=== PATIENT | female | born 1930 | race Caucasian/White ===

== ENCOUNTER 2017-08-28 10:33 | Inpatient (IN) | payer MEDICARE, OTHER ==
[~2017-08-28] VITALS: Ht 149.9 cm; Wt 54.4 kg
[~2017-08-28 10:33] MED LIST: AMLODIPINE BESYL5 MG PO; CALCIUM 600 +1 EAC3 PO; CENTRUM SILVER1 EAC5 PO; CEPHALEXIN250 MG PO; DOXYCYCLINE HYC50 MG PO; HYDROCHLOROTHIA50 MG PO; LEVOTHYROXINE100 MCG PO; OMEPRAZOLE40 MG PO; OXYBUTYNIN CHLO10 MG PO; PERCOCET 5-3251 EACH PO; PILOCARPINE HCL OU
[2017-08-28] MEDS ORDERED: ASPIRIN325 MG PO (15:13)
--- NOTE | 2017-08-28 16:30 | NUR ---
PATIENT AND CAREGIVER ALEJANDRA KWON HERE TODAY FOR PREADMISSION APPOINTMENT. PATIENT IS SCHEDULED FOR A LEFT TOTAL HIP ARTHROPLASTY ON 08/11/17. PATIENT IS HARD OF HEARING AND HAS COCHLEAR IMPLANT BEHIND THE LEFT EAR. CAREGIVER HELPED IN ANSWERING SOME OF THE QUESTIONS. PATIENT STATED SHE HAS A FRONT WHEELED WALKER AT HOME AND ALEJANDRA WILL BRING IT IN ON DAY OF SURGERY. SHE STATES SHE HAD HER RIGHT HIP REPLACED ABOUT THREE YEARS AGO. SHE LIVES IN A ONE STORY HOME WITH NO STEPS. SHE DOES HAVE A TUB\SHOWER COMBO AND A HANDHELD SHOWER HEAD. THEY ALSO DESCRIBED WHAT SOUNDS LIKE GRAB BARS TO HELP HER IN AND OUT OF THE TUB CURRENTLY. SHE HAS A SHOWER BENCH THAT SHE USES. SHE STATES SHE DID NOT USE A TOILET SEAT RISER AFTER HER LAST SURGERY. ALEJANDRA WILL BE TRANSPORTING HER HOME WHEN SHE IS DISCHARGED AND IS ABLE TO STAY WITH HER AT NIGHT FOR A FEW NIGHTS UNTIL SHE IS OKAY TO STAY ALONE AGAIN. ALEJANDRA COMES INTO THE HOME AND HELPS HER FOR APPROXIMATELY 20 HOURS EACH WEEK. IF PHYSICAL THERAPY IS NEEDED THEY WOULD LIKE TO HAVE IT SET UP WITH [facility] OUTPATIENT PH[facility]ICAL THERAPY. I ASKED IF THERE WAS FAMILY TO HELP IF IT WAS NEEDED AND THEY SAID NO. I WILL SEND THIS INFORMATION TO THE [facility] SO THEY CAN FOLLOW UP NEEDED.
[2017-09-10] MEDS ORDERED: MACRODANTIN100 MG PO (18:33)
--- NOTE | 2017-09-11 08:29 | NUR ---
PT'S SURGERY WAS CANCELLED, IN PAIN BUT WOULDN'T PUT A NUMBER ON LEVEL OF PAIN. DECLINED PRAYER, WILL FOLLOOW NEEDED
--- NOTE | 2017-09-11 10:22 | NUR ---
LE 0645: FRANCESCO LUJAN OUT TO SPEAK WITH RN. DISCUSSED PT WAS SEEN IN [facility] ER YESTERDAY. PER PT AND PT'S CAREGIVER PT WAS SEEN FOR UTI AND GIVEN ABX. WHEN ASKED IF ER CONTACTED DR. OLIVARES REGARDING SURGERY PT'S CAREGIVER STATES "THEY TOLD US IN THE ER SHE WAS OKAY TO HAVE SURGERY TOMORROW." PT AND CAREGIVER UNABLE TO SPECIFICALLY STATES THAT DR. OLIVARES WAS CALLED YESTERDAY IN ER,"ONLY IT WAS OKAY TO HAVE SURGERY TODAY." FRANCESCO LUJAN IN ROOM TO SEE PT, UA RESULTS PRINTED VIA [employer]. LE 0700: PER DR. OLIVARES SURGERY CANCELED DUE TO UTI. RN IN ROOM TO LET PT AND CAREGIVER KNOW THAT SINCE PRE-OP MEDICATIONS WERE GIVEN PT WOULD NEED TO STAY FOR MONITORING. PT AND CAREGIVER EXPRESS UNDERSTANDING.
--- NOTE | 2017-09-11 10:28 | NUR ---
LE 0830: PT RESTING IN BED BREAKFAST ORDER. PER RADHA RICHARDSON ATTEMPTED TO GET PT OOB AND DRESSED. PT BECAME DIZZY AT THAT TIME. PT ASSISTED BACK TO BED, IV DC'D. LE 0900: PT SLEEPING, CAREGIVER AT BEDSIDE. CAREGIVER DISCUSSED LEAVING, WILL RETURN AROUND 11 AM TO SEE IF THE PT IS ABLE TO DISCHARGE.
--- NOTE | 2017-09-11 10:30 | NUR ---
LE 1000: IN TO CHECK ON PT, PT AWAKE STATING "I FEELLIKE I NEED TO GET UP AND MOVE AROUND." ASSISTED TO SITTING AT THE BEDSIDE, PT STATING NEED FOR BATHROOM. PT ASSISTED BACK TO BED. BSC AND NEW ATTENDS BROUGHT TO BEDSIDE. PT ASSISTED TO SITTING POSITION. WHEN SITTING AT SIDE OF BED PT STATES "I FEEL DIZZY AND SICK AT MY STOMCAH." RN AT BEDSIDE, PT VOMITING. COLD CLOTH GIVEN. AFTER EMESIS PT ASSISTED BACK TO BED, DISCUSSED WAITING TO USE BSC UNTIL PT IS NO LONGER DIZZY. PT AGREES. NO FURTHER NEEDS AT THIS TIME, CALL LIGHT IN REACH.
--- NOTE | 2017-11-14 16:00 | NUR ---
PATIENT HERE TO PREADMIT FOR A LEFT TOTAL HIP REPLACEMENT ON 11/27/17. HER CAREGIVER ALEJANDRA STATES THEY STILL HAVE EVERYTHING FROM WHEN SHE WAS SUPPOSED TO HAVE SURGERY. ALEJANDRA WILL BE STAYING WITH HER WHEN SHE IS DISCHARGED AND SHE PLANS TO GO HOME. THIS INFORMATION WILL BE SENT TO DR OLIVARES OFFICE AND DC PLANNING FOR FURTHER FOLLOW UP.
--- NOTE | 2017-11-27 11:31 | NUR ---
11/27/17 1131 Macho Rucker [place] USED X3 TO MOISTEN MOUTH. ATTEMPTED TO WEAN O2 TO 2L VIA NC. PT DESATURATES ON THIS. SHE SLEEPS WITH HER MOUTH OPEN. SWITCHED BACK TO OXYMASK AT 3L AND SPO2 INCREASES TO 96%
--- NOTE | 2017-11-27 11:50 | NUR ---
PT ARRIVED TO FLOOR VIA BED. PT VERY DROWSY BUT AWAKES TO VERBAL STIMULI. PT SPEECH IS VERY GARBLED AND DIFFICULT TO UNDERSTAND, PACU AND PT CAREGIVER STATES THIS IS BASELINE FOR HER. PT ORIENTED TO ALL. DENIES PAIN OR NAUSEA. LEFT HIP DRESSED WITH MEPILEX AND OPSITE, CDI, CRYOCUFF IN PLACE. ABDUCTOR PILLOW, SCD'S, CLAUDE HOSE, AND HEEL PROTECTORS ALL IN PLACE. PT SATTING 90-96% ON 3L OXY MASK. PT BREATHES THROUGH MOUTH WHILE ASLEEP. IVF INFUSING PER ORDERS, IV SITE CDI, FLUSHING WELL. BED ALARM ON, CALL LIGHT WITHIN REACH.
--- NOTE | 2017-11-27 12:12 | NUR ---
VISITED PT IN BEFORE SURGERY, CG AT PT'S SIDE. I DIDN'T STAY LONG, MY PRESENCE SEEM TO CONFUSE PT SOME, HOWEVER SHE WAS PLEASANT. EXTENDED A BLESSING, WILL FOLLOW NEEDED
--- NOTE | 2017-11-27 12:48 | NUR ---
PT SLEEPING UPON ENTERING ROOM. AWOKE EASILY TO VOICE. PT DENIES PAIN OR OTHER CONCERNS AT THIS TIME. SATTING 93% ON 3L OXY MASK. LEFT DRESSING REMAINS CDI, NO BLEEDING OR SHADOWING NOTED. CAP REFIL OF FEET UP TO 4 SEC FROM 5, FEELING WARMER. CALL LIGHT WITHIN REACH.
--- NOTE | 2017-11-27 13:13 | OR ---
[facility] [address], [place] [address] Signed DATE OF OPERATION: 11/27/2017 SURGEON: Elvia Steward MD PREOPERATIVE DIAGNOSIS: Degenerative joint disease, left hip. POSTOPERATIVE DIAGNOSIS: Degenerative joint disease, left hip. PROCEDURE PERFORMED: Left total hip arthroplasty. CARGO BROKER: Laurie Flores MS4. ANESTHESIA: Spinal with sedation. BLOOD LOSS: 150 mL. IMPLANTS: [place] secure fit advanced, size 7 stem, 54 cup and a -2.5 ceramic head. BRIEF HISTORY: Kelli is an 87-year-old female with severe pain in her hip that was unremitting. Nonoperative treatment had failed, contained the pain. She wished to proceed. DESCRIPTION OF PROCEDURE: Once consent was obtained and medical clearance was obtained, she was taken to the operating room. After adequate anesthesia, she was placed in the right lateral decubitus position. All downside pressure points were well padded. The left hip was prepped and draped in a standard sterile fashion. The hip was approached through a 4.5 inch incision, carried through the skin and subcutaneous tissue. IT band was divided longitudinally. The vastus lateralis was split from the tip of the trochanter distally and elevated subperiosteally around to the level of the lesser trochanter. The gluteus medius was split bluntly. Gluteus minimus and capsule were split sharply from the trochanter to the acetabular rim and peeled off the anterior neck. The hip was dislocated. Femoral neck cut made 1 fingerbreadth above the lesser trochanter. The Electronically Signed By: ELVIA STEWARD MD 11/27/17 1313 PATIENT NAME: KELLI GALLAGHER OPERATIVE REPORT DATE OF : 34 REPORT #: [id number] PHYSICIAN: ELVIA STEWARD MD PCP: GISSEL WADDELL MD REPORT IS CONFIDENTIAL AND NOT TO BE RELEASED WITHOUT AUTHORIZATION [facility] [address], [place] [address] Signed head was removed. Periacetabular soft tissue was removed and the acetabulum was reamed starting with a 46 and going to a 54. A 54 cup was found to be stable and we impacted in position. A single 6.5 screw was placed posterosuperiorly and the liner was then impacted. Attention was turned to the proximal femur. This was opened with a maria elenaie cutter, followed by the Kali awjong. It was then reamed sequentially up to a 7 and broached to a 7. The 7 broach was left in position and the hip was trialed. The zero was a little bit too long and there was tightness in the quads. The head was switched to -2.5 and this was stable. Her leg lengths were good. The trials were removed. The proximal femur was then irrigated and the final stem was impacted until it was well seated. The -2.5 head was then impacted until it was well seated and the hip was reduced. It was taken through range of motion, 100 degrees of flexion with 20 of internal and external rotation. She was stable. The wound was copiously irrigated with antibiotic solution. A total of 3 L antibiotic irrigation was used. The capsule was closed with #1 Vicryl. The vastus and IT band layers were closed independently using #2 Stratafix subcutaneous tissue with 0 Stratafix and skin with adwoa. The wound was dressed with Mepilex Ag dressing and Opsite. She tolerated the procedure well. All sponge, needle, and instrument counts were correct. Elvia Steward MD BA/CORRINAL /[id number] Copies: ~ Electronically Signed By: ELVIA STEWARD MD 11/27/17 1313 PATIENT NAME: KELLI GALLAGHER OPERATIVE REPORT DATE OF : 34 REPORT #: [id number] PHYSICIAN: ELVIA STEWARD MD PCP: GISSEL WADDELL MD REPORT IS CONFIDENTIAL AND NOT TO BE RELEASED WITHOUT AUTHORIZATION
--- NOTE | 2017-11-27 13:51 | NUR ---
PT STILL VERY DROWSY. LEFT HIP DRESSING CDI. O2 90% ON 3L OXY MASK. IV INFUSING WNL. CALL LIGHT WITHIN REACH.
--- NOTE | 2017-11-27 13:52 | NUR ---
PATIENT RESTING IN BED WITH EYES CLOSED. RN IN ROOM. NO NEEDS AT THIS TIME.
[2017-11-27] MEDS ORDERED: ALENDRONATE SOD70 MG PO (15:26)
[2017-11-27] MEDS ORDERED: OXYBUTYNIN CHLO15 MG PO (15:29)
--- NOTE | 2017-11-27 16:00 | NUR ---
WENT TO CHECK ON PT AT 1445. NOTED THAT PT WAS UNRESPONSIVE TO VERBAL STIMULI. PT UNRESPONSIVE TO SHOUTING OR NOXIOUS STIMULI. PUPILS EQUAL AND UNREACTIVE TO LIGHT, LIMBSX4 FLACCID. PT MAINTINNG AIRWAY INDEPENDENTLY, SATTING 93% ON 3L OXYMASK, RESP 12-16. ALL VITAL SIGNS BASELINE FOR PT. CAP REFILL 4-5 SEC. MEDICATED PT WITH 0.4MG OF IV NARCAN. NOTIFIED JOSEF ALCARAZ AND DR. OLIVARES. RECIEVED ORDER FROM MARSHALL TO GIVE 2MG IV NARCAN AND CONTACT DR. LERMA. DR. LERMA NOTITFIED AND IN TO ASSESS PT. LABS DRAWN, ABG'S DRAWN. FLUMEZINAL GIVEN PER DR. LERMA. SMELLING SALTS ATTEMPED. FACIAL GRIMACE NOTED BUT NOT OTHER REACTION. PT PLACED ON BIPAP PER ABG RESULTS. PLACED ON TELE, SCOPE PATCH REMOVED. PT TRANSFERRED TO CCU. BEDSIDE REPORT GIVEN TO AUSTIN RICHARDSON.
--- NOTE | 2017-11-27 16:52 | NUR ---
PT ARRIVED TO ROOM 127 FROM MED/SURG AFTER RAPID RESPONSE. PT TRANSFERRED VIA BED. VITAL SIGNS TAKEN AND MONITOR ON, PT IS SINUS PREETI 2 58 BPM. PT NON-RESPONSIVE TO PAINFUL STIMULI. LEFT EYE WITH POSSIBLE CATARACT, RIGHT EYE DOES NOT REACT TO LIGHT. KEYS CATH PLACED AND EMPTIED OF 475 MLS ORANGE COLORED URINE. R.T. HERE TO DRAW ANOTHER SET OF ABG'S. DR. OLIVARES HERE TO ASSESS PT.
--- NOTE | 2017-11-27 17:46 | NUR ---
BLOOD GAS SENT TO LAB AND RESULTS REPORTED TO DR. OLIVARES & DR. LERMA. ABG SHOWS PH NOW 7.28, [phone]. HEAD CT ORDERED.
--- NOTE | 2017-11-27 18:05 | NUR ---
TO CT FOR HEAD CT PER DR. SEVILLA.
--- NOTE | 2017-11-27 18:35 | NUR ---
RETURNED TO ROOM [address] COMPLETED. PT REMAINS NON-RESONSIVE.
--- NOTE | 2017-11-27 21:33 | NUR ---
REPORT RECEIVED FROM PRITI. IN TO SEE PT AT 1944. PT OBTUNDED. NO RESPONSE TO STERNAL RUB, MOVING OF L LEG OR PRESSING NAILS SHARPLY. PT REMAINED UNRESPONSIVE UNTIL 2132. DR LERMA IN TO SEE PT AT 1999. ABG DRAWN AT 2029 WITHOUT RESPONSE FROM PT. ABG RESULTS UPDATED TO DR OLIVARES AT 2111 AND DECISION AGREED UPON BY STAFF, DR LERMA AND DR OLIVARES TO RE-INTUBATE PT SHE IS UNABLE TO MAINTAIN OWN AIRWAY. REMAINS ON BIPAP WITH RR 10-12. JARRETT MORRIS IN TO PROVIDE ANESTHESIA AND INTUBATE AT 2132. PT GRIMACING AND PULLING HEAD AWAY. DR LERMA IN TO SEE PT AND INTUBATION HELD AT THIS TIME. PT PLACED ON 3.5L NC. ENULOSE ENEMA GIVEN AT 2214. ATTENDS CHANGED AT 2299. PT GIVEN 250ML BOLUS PER VERBAL ORDER DR LERMA FOR LOW U/O. REPOSITIONED PT IN BED TO R SIDE. CRYOCUFF ON, SCD'S ON, HEEL PROTECTORS AND ABDUCTOR PILLOW IN PLACE. PT NOW TALKING OUTLOUD, SPEECH INCOHERENT. ORAL CARE PROVIDED. EYES CLOSED. TORADOL INITIALLY HELD DUE TO CONCERNS RE RENAL FUNCTION AND LOW U/O. GIVEN AT MIDNIGHT. NC ON WITH ETCO2 MONITOR SINCE 2229, PER RT.
--- NOTE | 2017-11-28 01:10 | NUR ---
PT SMILING. PLACED DENTURES IN PT MOUTH, UPPER ONES LOOSE. REMOVED UPPERS. ABLE TO UNDERSTAND PT STATING 'THANK YOU'. DRESSING TO LEFT HIP UNCHANGED. MEPELEX ON COVERED BY LARGE OPP SITE. ADJUSTED CRYOCUFF TO AVOID SKIN BEING EXPOSED. ATTEMPTED SEVERAL TIMES TO PLACE HEARING AIDS IN PT EARS, HOWEVER THEY WILL NOT STAY IN PLACE. MONITORING U/O QHR. REMAINS ORANGE IN COLOR. PT FIDGETING. TALKING INCOHERENTLY WITH EYES CLOSED.
--- NOTE | 2017-11-28 04:48 | NUR ---
PT BECAME NAUSEATED AT 0150. ABLE TO UNDERSTAND PT STATING 'I FEEL SICK'. SAT HOB UP. 4MG ZOFRAN GIVEN IV. PT CALMING AFTER 30MIN. ATTENDS CHANGED AT 0300 FOR SMALL YELLOW/BROWN MUCOUS BM. REPOSITIONED WITH PILLOW UNDER L HIP. TOLERATED FAIRLY WELL. GRIMACING WITH MOVEMENT, HOWEVER SETTLING TO SLEEP AFTER. CURRENTLY ASLEEP, WAKES TO TOUCH. REMAINS DIFFICULT TO UNDERSTAND SPEECH AND UNABLE TO DETERMINE IF PT ORIENTED. HAS OCCASIONAL LOOSE PRODUCTIVE COUGH. DRESSING ON L HIP INTACT WITH CRYOCUFF ON.
--- NOTE | 2017-11-28 04:52 | NUR ---
LATE NOTE: GINO HERNANDEZ WARMER PLACED ON PT 223O AND REMOVED 0200.
--- NOTE | 2017-11-28 05:11 | NUR ---
PT WITH LOOSE COUGH, UNABLE TO COUGH UP. USING YANKER TO SUCTION. HAS POOR GAG REFLEX AND REMAINS WITH EYES CLOSED.
--- NOTE | 2017-11-28 06:30 | NUR ---
UPDATED DR OLIVARES REGARDING INTUBATION HELD LAST NIGHT. PT REMAINS NPO DUE TO LACK OF GAG REFLEX. DIFFICULTY IN ASSESSING MENTATION. OPIODS HELD AT THIS TIME. PAIN CONTROL POTENTIAL ISSUE.
--- NOTE | 2017-11-28 07:14 | NUR ---
OT EVALUATION DONE YESTERDAY WAS NOT DONE ON THIS PT. IT WAS WRITTEN IN HER CHART ON ERROR. COULD NOT AROUSE PT YESTERDAY 11/27/17 TO DO THE EVALUATION. MARY OTR/L
--- NOTE | 2017-11-28 08:26 | NUR ---
ATTENDS CHANGED, PT INCONT OF SMALL AMT OF SOFT BROWN STOOL. PT AWAKE AND TRYING TO TALK. P.T. HERE TO WORK WITH PT.
--- NOTE | 2017-11-28 09:50 | NUR ---
RESPIRATORY THERAPIST ELIU AT PATIENT BEDSIDE, BI-PAP WILL STAY NEAR PATIENT BEDSIDE, PATIENT DOES NOT REQUIRE BI-PAP AT THIS TIME. PATIENT AWAKENS UPON RESPIRATORY THERAPY EXAM, PATIENT DENIES BREATHING DIFFICULTIES.
--- NOTE | 2017-11-28 10:58 | NUR ---
PT CHANGED D/T INCONT OF STOOL. ASSESSMENT COMPLETED, ABDUCTOR PILLOW & CRYOCUFF IN PLACE. CLAUDE HOSE AND SCD'S ON BILAT. PT ALERT AND TALKING WITH HEARING DEVICE IN PLACE. SPEECH THERAPY HERE AND PT IS ABLE TO SWALLOW APPLE SAUCE AND PT FOLLOWS DIRECTIONS WELL. PT NOW RESTING WITH HOB ELEVATED AND TOLERATING WELL. URINE OUTPUT HAS INCREASED SLIGHTLY.
--- NOTE | 2017-11-28 12:29 | NUR ---
ASSESSMENT COMPLETED. PT ON BED CHASE PER REQUEST, PASSING FLATUS ONLY. PT REPOSITONED IN BED RESTING WITH EYES CLOSED HOB ELEVATED 30%.
--- NOTE | 2017-11-28 14:03 | NUR ---
PATIENT WITH COMPLAINTS OF PAIN AND ASKED TO BE REPOSITIONED, PATIENT REPOSITIONED IN BED WITH REPORT OF COMFORT FROM PATIENT. PATIENT WITH NO FURTHER COMPLAINTS.
--- NOTE | 2017-11-28 14:58 | NUR ---
P.T. HERE TO WORK WITH PT. PT ASSISTED UP TO A STANDING POSITION WITH 2 PERSON ASSIST. PT ABLE TO STAND FOR A FEW MIN AND RETURNED TO BED, OANH GRANADOS.
--- NOTE | 2017-11-28 15:27 | NUR ---
PT RESTING WITH HOB ELEVATED. TORADOL 15 MG GIVEN IV PER DR. ORDER. HR 80, RESP 16, BP 148/39.
--- NOTE | 2017-11-28 16:29 | NUR ---
PATIENT UP TO BEDSIDE COMMODE WITH TWO PERSON ASSIST, PATIENT WITH BOWEL MOVEMENT DOCUMENTED IN I&O'S. LINENS CHANGED.
--- NOTE | 2017-11-28 17:58 | NUR ---
PT UP TO BSC PER REQUEST WITH 2 PERSON ASSIST, UNABLE TO HAVE BM BUT WAS ABLE TO PASS FLATUS. PT RETURNED TO BED WITH ASSIST, ABDUCTOR PILLOW & CRYO CUFF IN PLACE, SCD'S & CLAUDE HOSE ON BILAT. PT DRANK WATER WITHOUT PROBLEMS, OFFERED PT SOMETHING TO EAT BUT SHE REFUSED AT THIS TIME. RESTING WITH EYES CLOSED, HOB ELEVATED.
--- NOTE | 2017-11-28 18:32 | NUR ---
PATIENT GIVEN NEW WARM BLANKETS, REPOSITIONED, PATIENT REPORTS COMFORT, RESTING.
--- NOTE | 2017-11-28 19:20 | NUR ---
SHIFT REPORT RECEIVED FROM DYLAN AVILA. PT IS CURRENTLY RESTING IN BED. RA. KEYS PATENT, URINE APPEARS ORANGE. PT HAS CLAUDE'S, SCD'S, HEEL PROTECTORS, AND ABDUCTOR PILLOW IN PLACE. IVF INFUSING WNL. WILL CONTINUE TO MONITOR.
--- NOTE | 2017-11-28 20:15 | NUR ---
ASSESSMENT COMPLETED. PT IS ALERT, IQUGMIUT WITH COCHLEAR HEARING AID IN PLACE. ORIENTED TO ALL BUT DATE. DENIES PAIN, SCHEDULED TORADOL ADMINISTERED. LUNGS CLEAR, RA. HR REGULAR. BOWEL TONES ACTIVE, DENIES NAUSEA. LEFT HIP HAS SOME TRACE EDEMA, SURGICAL SITE COVERED WITH MEPILEX AND OPSITE, DRESSING C/D/I. CLAUDE'S, SCD'S, HEEL POTECTORS, AND ABDUCTOR PILLOW IN PLACE. NEW ICE IN CRYOCUFF. KEYS PATENT, DRAINING ORANGE URINE. NO REQUESTS AT THIS TIME, WILL CONTINUE TO MONITOR.
--- NOTE | 2017-11-28 22:00 | NUR ---
IN TO GIVE IV TYLENOL. PT DENIES PAIN AT THIS TIME. PT REMOVED HER HEARING AID AND HAD ME PLACE THE BATTERY ON THE KILN FIRER HELPER. DENIES FURTHER REQUESTS AT THIS TIME.
--- NOTE | 2017-11-29 00:23 | NUR ---
ASSESSMENT COMPLETED. PT RESTING COMFORTABLY, NO APPARENT DISTRESS. RESPIRATIONS EVEN AND UNLABORED, RR:19, SPO2: 100% ON RA. DRESSING TO LEFT HIP REMAINS C/D/I WITH CLAUDE'S/SCD'S/HEEL PROTECTORS/CRYOCUFF IN PLACE. IVF INFUSING WNL. MASSIMO PATENT. WILL CONTINUE TO MONITOR.
--- NOTE | 2017-11-29 01:49 | NUR ---
PT WOKE CONFUSED STATING "I'M NOT GOING TO PAY FOR ANOTHER SURGERY! I WANT TO TALK TO DR. OLIVARES!" RE-ASSURED PT THAT SHE HAD ALREADY HAD SURGERY AND THAT SHE WASN'T GOING TO HAVE ANYMORE, I ALSO LET HER KNOW THAT DR. OLIVARES WILL BE IN THIS MORNING AND SHE CAN TALK TO HIM. PT ASKS "IF I ALREADY HAD SURGERY, WHY DO I STILL HAVE TO BE HERE?" I EXPLAINED TO HER ABOUT PHYSICAL THERAPY AND MEDICATIONS AND SHE SEEMED HAPPY WITH THAT ANSWER. ASKED PT IF HER HIP HURTS AND SHE SAID "A LITTLE." IV TORADOL GIVEN AT THIS TIME. BED ALARM IS ON FOR SAFETY. WILL CONTINUE TO CLOSELY MONITOR.
--- NOTE | 2017-11-29 02:15 | NUR ---
PT DESATURATING TO 87%, PLACED ON 1L O2 VIA NC. SATS STILL ONLY 89%, TITRATED TO 2L O2 AND SATS NOW 93%. PT RESTING WITH EYES CLOSED. BED ALARM REMAINS ON FOR SAFETY. WILL CONTINUE TO MONITOR.
--- NOTE | 2017-11-29 04:30 | NUR ---
PT UP TO BSC WITH 2-PA AND FWW, MOVES WELL BUT IS VERY IMPULSIVE. PT ABLE TO PASS FLATUS BUT ONLY HAD A SMEAR OF BM. NEW ATTENDS AND EPI-CARE PROVIDED, RETURNED TO BED. ASSESSMENT COMPLETED. NO CHANGES FROM PREVIOUS ASSESSMENTS. REMAINS ON 2L O2, LUNGS CLEAR. DRESSING TO LEFT HIP C/D/I, CRYOCUFF HAS FRESH ICE. CLAUDE'S, SCD'S, ABDUCTOR PILLOW, AND HEEL PROTECTORS IN PLACE. IVF INFUSING WNL. KEYS PATENT, URINE REMAINS ORANGE. BED ALARM ON FOR SAFETY.
--- NOTE | 2017-11-29 06:48 | NUR ---
PT FORGETFUL, CONFUSED AT TIMES. PAIN WELL CONTROLLED WITH SCHEDULED TYLENOL AND TORADOL. LUNGS CLEAR, RA MOST OF NIGHT BUT NEEDED 2L WHILE SLEEPING. DRESSING TO LEFT HIP C/D/I, MINIMAL SWELLING TO LEFT HIP. CRYOCUFF, CLAUDE'S, SCD'S, HEEL PROTECTORS, AND ABDUCTOR PILLOW IN PLACE. 2-PA WITH FWW TO BSC, TOLERATED WELL, PASSED FLATUS BUT ONLY SMEAR OF BM. PEDAL PULSES PALPABLE, EXTREMITIES WARM AND PINK, CAP REFILL <3 SECONDS. IVF INFUSING WNL. KEYS PATENT, URINE ORANGE. TOLERATING CLEAR LIQUIDS WELL. BED ALARM ON FOR SAFETY.
--- NOTE | 2017-11-29 09:02 | NUR ---
OCCUPATIONAL THERAPY IN ROOM AT THIS TIME. PT STATES SHE IS 8/10 IN PAIN. IV TORADOL GIVEN AT THIS TIME. PT IS VERY HARD OF HEARING BUT DOES HAVE HER COCHLEAR IMPLANTS IN. KEYS DRAINING CLEAR YELLOW URINE AT THIS TIME. SCDs AND ABDUCTOR IN PLACE, WELL CLAUDE HOSE. PT REPOSITIONED IN BED TO HELP WITH PAIN AT THIS TIME.
--- NOTE | 2017-11-29 09:40 | NUR ---
PT'S OT EVALUATION WAS COMPLETED ON 11/29/17 NOT 11/27/17. THAT WAS AN ERROR. RHADDEN OTR/L
--- NOTE | 2017-11-29 09:40 | NUR ---
ASSISTED PT WITH ORAL HYGIENE AND KEYS CATHETER CARE. PT RESTING IN BED WATCHING TELEVISION. BED ALARM ON, CALL LIGHT WITHIN REACH, NO FURTHER REQUESTS AT THIS TIME.
--- NOTE | 2017-11-29 11:10 | NUR ---
P ASSISTED BACK TO BED, 2 PESON ASSIST WITH FWW, TOLERATED WELL. HIP ADDUCTOR PLACED, CRYO CUFF PLACED, SCD PLACED, AND HEEL PROTECTORS ON. CALL LIGHT WITHIN REACH.
--- NOTE | 2017-11-29 11:35 | NUR ---
JUVENTINOY THERAPY IN ROOM WITH PT AT THIS TIME.
--- OUTSIDE RECORDS SUMMARY | 2017-11-29 12:02 | XMS | Clinical Summary ---
Demographics + + + | Address | [address] | | | [place] [address] | + + + | Home Phone | | + + + | Preferred Language | Unknown | + + + | Marital Status | Single | + + + | Congregational Affiliation | Unknown | + + + | Race | Unknown | + + + | Ethnic Group | Unknown | + + + Author + + + | Author | [facility] | | | and [place] | + + + | Organization | [facility] | | | and [place] | + + + | Address | Unknown | + + + | Phone | Unavailable | + + + Support + + +---------+ + | Name | Relationship | Address | Phone | + + +---------+ + | Buddy Mondragon | ECON | Unknown | | + + +---------+ + Care Team Providers + +------+ + | Care Financial Institution Vice President Name | Role | Phone | + +------+ + | Erich Marcos MD | PP | | + +------+ + Allergies + + + + + + | Active Allergy | Reactions | Severity | Noted | Comments | | | | | Date | | + + + + + + | Ciprofloxacin | | High | 07/11/20 | Critical | | | | | 14 | | + + + + + + | Sulfa Antibiotics | | High | 07/11/20 | Critical | | | | | 14 | | + + + + + + Current Medications + + +-------+---------+------+------+-------+ | Prescription | Sig. | Disp. | Refills | Star | End | Statu | | | | | | t | Date | s | | | | | | Date | | | + + +-------+---------+------+------+-------+ | amLODIPine | Take 5 mg by mouth | | | | | Activ | | (NORVASC) 5 mg | Daily. | | | | | e | | tablet | | | | | | | + + +-------+---------+------+------+-------+ | | Take 50 mg by mouth | | | | | Activ | | hydrochlorothiazide | Daily. | | | | | e | | 50 mg tablet | | | | | | | + + +-------+---------+------+------+-------+ | oxybutynin | Take 10 mg by mouth | | | | | Activ | | (DITROPAN-XL) 10 MG | Daily. | | | | | e | | 24 hr tablet | | | | | | | + + +-------+---------+------+------+-------+ | levothyroxine | Take 100 mcg by | | | | | Activ | | (SYNTHROID, | mouth every morning | | | | | e | | LEVOTHROID) 100 mcg | (before breakfast). | | | | | | | tablet | | | | | | | + + +-------+---------+------+------+-------+ | cephalexin | Take 250 mg by mouth | | | | | Activ | | (KEFLEX) 250 mg | 4 times daily. | | | | | e | | capsule | | | | | | | + + +-------+---------+------+------+-------+ | Multiple | Take by mouth. | | | | | Activ | | Vitamins-Minerals | | | | | | e | | (CENTRUM SILVER PO) | | | | | | | + + +-------+---------+------+------+-------+ | potassium chloride | Take 10 mEq by mouth | | | | | Activ | | SA (DARBY JEAN) | 2 times daily. | | | | | e | | 10 MEQ tablet | | | | | | | + + +-------+---------+------+------+-------+ | Calcium-Vitamin D | Take by mouth. | | | | | Activ | | (CALTRATE 600 | | | | | | e | | PLUS-VIT D PO) | | | | | | | + + +-------+---------+------+------+-------+ | cholecalciferol | Take 1,000 Units by | | | | | Activ | | (VITAMIN D-3) 1,000 | mouth Daily. | | | | | e | | units tablet | | | | | | | + + +-------+---------+------+------+-------+ | pilocarpine | 1 drop 4 times | | | | | Activ | | (ISOPTO CARPINE) 2% | daily. | | | | | e | | ophthalmic solution | | | | | | | + + +-------+---------+------+------+-------+ | aspirin 325 mg | Take 325 mg by mouth | | | | | Activ | | tablet | Daily. | | | | | e | + + +-------+---------+------+------+-------+ | | Take 1 tablet by | | | | | Activ | | acetaminophen-codein | mouth every 4 hours | | | | | e | | e (TYLENOL #3) | as needed. | | | | | | | 300-30 mg per tablet | | | | | | | + + +-------+---------+------+------+-------+ Active Problems + + + | Problem | Noted Date | + + + | Esophageal reflux | 07/11/2014 | + + + | Gastroparesis | 07/11/2014 | + + + | Diaphragmatic hernia without mention of obstruction or gangrene | | + + + + + | Overview: ICD-10 Record update | + + + +---+ | Bariatric surgery status | | + +---+ | GERD (gastroesophageal reflux disease) | | + +---+ Family History + + +------+ + | Medical History | Relation | Name | Comments | + + +------+ + | Cancer | | | sibling-ovarian | + + +------+ + | Heart disease | | | parents | + + +------+ + | Stroke | | | parents | + + +------+ + | Cancer | | | sibling-colon | + + +------+ + + +------+--------+ + | Relation | Name | Status | Comments | + +------+--------+ + Social History + +-------+ +--------+------+ | Tobacco Use | Types | Packs/Day | Years | Date | | | | | Used | | + +-------+ +--------+------+ | Former Smoker | | | | | + +-------+ +--------+------+ + + | Comments: quit:1993 | + + + + +---------+ + | Alcohol Use | Drinks/We | oz/Week | Comments | | | ek | | | + + +---------+ + | No | | | | + + +---------+ + + + + | Sex Assigned at | Date Recorded | | | | + + + | Not on file | | + + + Last Filed Vital Signs + + + + | Vital Sign | Reading | Time Taken | + + + + | Blood Pressure | 126/69 | 07/22/2014 1205 PST | + + + + | Pulse | 73 | 07/22/2014 1205 PST | + + + + | Temperature | 36.6 C (97.9 F) | 07/22/2014 0955 PST | + + + + | Respiratory Rate | 16 | 07/22/2014 1205 PST | + + + + | Oxygen Saturation | 92% | 07/22/2014 1205 PST | + + + + | Inhaled Oxygen | - | - | | Concentration | | | + + + + | Weight | 64 kg (141 lb) | 07/22/2014954 PST | + + + + | Height | 147.3 cm (4' 10") | 07/22/2014954 PST | + + + + | Body Mass Index | 29.47 | 07/22/2014954 PST | + + + + Plan of Treatment + + + + + | Health Maintenance | Due Date | Last Done | Comments | + + + + + | Vaccine: | | | | | Dtap/Tdap/Td (1 - | 2 | | | | Tdap) | | | | + + + + + | Vaccine: | | | | | Pneumococcal 65+ | 8 | | | | Low/Medium Risk (1 | | | | | of 2 - PCV13) | | | | + + + + + | Vaccine: Influenza | | | | | (Season Ended) | 8 | | | + + + + + Results Not on filefrom Last 3 Months Insurance + +--------+ +--------+ +---------+ | Payer | Benefi | Subscriber | Type | Phone | Address | | | t Plan | ID | | | | | | / | | | | | | | Group | | | | | + +--------+ +--------+ +---------+ | [employer] | FAMILY | [phone] | Medica | [phone] | | MEDICARE | CARE | | re | [phone] | | | | PRMCR | | | | | | | MDCR | | | | | | | HMO | | | | | + +--------+ +--------+ +---------+ | [place] | MEDICA | xxxxxxxx | Medica | [phone] | | | [place] | | id | [phone] | | | | PLUS | | | | | + +--------+ +--------+ +---------+ + +--------+ +--------+ + + | Guarantor Name | Accoun | Relation to | Date | Phone | Billing Address | | | t Type | Patient | of | | | | | | | | | | + +--------+ +--------+ + + | KELLI GALLAGHER | Person | Self [birth year] Home: | [address] | | | al/Fam | | 1931 | [phone] | [address], | | | [place] | | | [phone] | [place] [phone] | + +--------+ +--------+ + +
--- OUTSIDE RECORDS SUMMARY | 2017-11-29 12:02 | XMS | Clinical Summary ---
Demographics + + + | Address | [address] | | | [place] [address] | + + + | Home Phone | | + + + | Preferred Language | Unknown | + + + | Marital Status | Single | + + + | Baptist Affiliation | CAT | + + + [...] [address] | | #[place] | [phone] | +------+ + + + +------- + ECON | Unknown | | +------+ + + + +------- + Care Team Providers + +------+ + | Care Center Specialists Name | Role | Phone | + +------+ + | Amilcar Jean MD | PP | | + +------+ + Source Comments TRIDA is fully live on both EpicCare Ambulatory and EpicCare InPatient.[facility] Allergies + + + + + [...] [address] | | | | | | [place], [place] | | | | | | [address] | | +--------+ + + + + [...] | | 04/11/ | [id number] | | [id number]: Qty: 1 on | | Ear | RONA | | 2016 | /[id number] | | 06/11/2015 by Sachin Ng | | | | | | 202019 | | MD Kim | | | | | | 6 / | + +------+--------+ +--------+--------+--------+ Procedures + +--------+ + + + | Procedure Name | Priori | Date/Time | Associated Diagnosis | Comments | | | ty | | | | + +--------+ + + + | UT EVL AUD RHB STTS | Routin | 06/14/2017 | 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
--- OUTSIDE RECORDS SUMMARY | 2017-11-29 12:02 | XMS | Clinical Summary ---
Demographics + + + | Address | [address] | | | [place] [address] | + + + | Home Phone | | + + + | Preferred Language | Unknown | + + + | Marital Status | Single | + + + | Synagogue Affiliation | CAT | + + + [...] | + + + Support + + + + + | Name | Relationship | Address | Phone | + + + + + | Lauri Gallagher | FR[place] | [address] | | | | | #[place] | | | | | [address] | | + + + + + | Buddy Wilson | ECON | Unknown | | + + + + + Care Team Providers + +------+ + | Care Editorial Specialist Name | Role | Phone | + +------+ + | Amilcar Jean MD | PP | | + +------+ + Source Comments JEREMY is fully live on both EpicCare Ambulatory and EpicCare InPatient.[facility] Allergies + + + + [...] place | 06/25/2015 | + + + Family History + +------+--------+ + | Relation [...] | | 2017 | Visit | | Latanya Miguel [address] | | | | | | [address] | | | | | | [place] | | | | | | [address] | | +--------+ + + + + + + + + + | Health Maintenance | Due Date | Last Done | Comments | + + + + + | INFLUENZA VACCINE | | | | | (FLU SHOT) | 8 | | | + + [...] | | 04/11/ | [id number] | | [id number]: Qty: 1 on | | Ear | RONA | | 2016 | /[id number] | | 06/11/2015 by Sachin Ng | | | | | | [id number] | | MD Kim | | | | | | 6 / | + +------+--------+ +--------+--------+--------+ Results Not on filefrom Last 3 Months
--- OUTSIDE RECORDS SUMMARY | 2017-11-29 12:02 | XMS | Encounter Summary ---
Demographics + + + | Address | [address] | | | [place] [address] | + + + | Home Phone | | + + + | Preferred Language | Unknown | + + + | Marital Status | Single | + + + | Hindu Affiliation | CAT | + + + | Race | White | + + + | Ethnic Group | Not or | + + + Author + + + | Author | [facility] | + + + | Organization | [facility] | + + + | Address | Unknown | + + + | Phone | Unavailable | + + + Support +------+ + + + +------- + | Name | Relationship | Address | Phone | +------+ + + + +------- + ECON | [address] | | #[place] | [address] | +------+ + + + +------- + ECON | Unknown | | +------+ + + + +------- + Care Team Providers + +------+ + | Care Metal Container Maker Name | Role | Phone | + [...] + + + | Closed | | Metal Burnisher | | Non-[facility] | Ent | | | | | | Epic Dept | Audiology [facility] | | | | | | | [address] | | | | | | | [address] | | | | | | | [facility] | | | | | | | Mailcode: | | | | | | | [address] | | | | | | | Physician's | | | | | | | Tee | | | | | | | [place], [place] | | | | | | | [address] | | | | | | | Phone: | | | | | | | [phone] | | | | | | | Fax: | | | | | | | [phone] | +--------+--------+ + + + + Encounter [...] at [facility] [address] | [facility] | | | | | [facility] | [place], [place] | | | | | Mailcode: [address] | [address] | | | | | Physician's Tee | | | | | | [place], [place] | | | | | | [address] | | | | | | [phone] | | | +--------+ + + + [...] may be different f rom the original. [facility] Cochlear Implant Program Name: Domenica Gallagher : 1930 Date of Visit: 06/14/2017 Interval: Routine 3 month Participants: Rambo (Caregiver) CI: Left PERALTA: None Geospatial Imagery Intelligence Analyst: Numerate Internal: CI522 Magnet Strength: 1X Adult Cochlear Implant Programming Summary Domenica Gallagher, 86 y.o., was seen by [facility] Audiology for follow up of her [...] christophe at 60 dB SPL in Program 1/[employer] 24 in the soundfield unless otherwise noted. The following responses were obtained: Aided Thresholds: [phone] 2000 3000 4000 6000 SRT CI - [...] me at . Roxanne Wynne, DANIEA Clinical Metal Burnisher Board Certified in Audiology [facility] Department of Otolaryngology Audiology Services [address], [address] [place] [address] in this encounter Plan of Treatment +--------+ + + + + | Date | Type | Specialty | Care Team | Description | +--------+ + + + + | 12/29/ | Diagnostic | Metal Burnisher | Nidia Lee | | | 2018 | Visit | | K, AuD [address] | | | | | | [address] | | | | | | [place], [place] | | | | | | [address] | | +--------+ + + + + [...]
--- NOTE | 2017-11-29 13:38 | NUR ---
PT EDUCATED ON IS USE. PT DEMONSTRATED USE AND WAS ADVISED TO CONTINUE USE THROUGHOUT THE DAY. PT VERBALIZED AN UNDERSTANDING.
--- NOTE | 2017-11-29 14:05 | NUR ---
PT C/O PAIN IN LLE. CLAUDE HOSE REMOVED. REDDENED AREA NOTED ON OSMAN AND POSTERIOR LLE. SMALL BLISTERS NOTED ON POSTERIOR LLE. REDDENED AREA NOTED ON OSMAN AND POSTERIOR RLE. DR. OLIVARES IN ROOM AT THIS TIME. CLAUDE HOSE TO BE OFF, PER DR. OLIVARES. SCDS PLACED AT THIS TIME.
--- NOTE | 2017-11-29 17:55 | NUR ---
PATIENT SITTING UP IN BED. CALL LIGHT WITHIN REACH. NO OTHER NEEDS AT THIS TIME.
--- NOTE | 2017-11-29 18:35 | NUR ---
PATIENT TRANSFERED TO MED-SURG FROM CCU @ 0980. PATIENT IS ALERT SOMEWHAT DISORIENTED. RESPONDED APPROPRIATELY. NO APPARENT DISTRESS. PATIENT IS ON 1L VIA NC. REDNESS AND BLISTER ON THE RIGHT KNEE AND LEFT OSMAN. NO CLAUDE HOSE, SCD ON. DRESSING ON LEFT HIP D/C/I. ABDUCTOR PILLOW IN PLACE. BED ALARM ON. LOW DOSE OF NORCOTIC IF NEED TO BE GIVEN. 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
--- NOTE | 2017-11-29 18:47 | NUR ---
PATIENT SITTING UP IN BED WITH EYES CLOSED. CALL LIGHT WITHIN REACH. NO OTHER NEEDS AT THIS TIME.
--- NOTE | 2017-11-29 19:20 | NUR ---
RECEIVED REPORT FROM RN. PATIENT IS RESTING IN BED, BREATHING IS EVEN AND UNLABORED. DENIES NEEDS AT THIS TIME. CALL LIGHT WITHIN REACH, BED ALARM ON.
--- NOTE | 2017-11-29 19:30 | NUR ---
PATIENT IS RESTLESS IN BED, FIDGITING WITH BLANKETS AND ATTEMPTING TO TAKE ABDUCTOR PILLOW OFF, REMOVED IV SITES AND APPEARED TEARFUL. PATIENT STATES "I JUST WANT TO GO HOME. I AM SICK AND TIRED OF BEING HERE." EDUCATED PATIENT ABOUT HER CONDITION AND THE REASON FOR HER EXTENDED HOSPITALIZATION. PATIENT CONTINUES TO BE RESTLESS AND ARGUMENTATIVE. REMOVED ABDUCTOR PILLOW AND PLACED REGULAR PILLOW BETWEEN LEGS, REPOSITIONED IN BED WITH HELP FROM DYLAN RIOS. PATIENT APPEARS TO BE MORE COMFORTABLE. PATIENT DENIES PAIN. WITH REASSURANCE AND THERAPEUTIC COMMUNICATION, PATIENT IS NOW RESTING MORE COMFORTABLY AND WITH LESS AGITATION. NEW IV STARTED, PATIENT TOLERATED WELL. PER PATIENT'S REQUEST, RN SPOKE WITH CAREGIVER AND PATIENT SPOKE WITH CAREGIVER ON PHONE TO HELP REASSURE PATIENT. PATIENT STATES "WELL, I GUESS THERE IS NOTHING I CAN DO ABOUT IT, IS THERE?" AGAIN, REASSURED PATIENT. NOW RESTING, READING A MAGAZINE. WILL MONITOR PATIENT CLOSELY, CALL LIGHT WITHIN REACH, BED ALARM ON.
--- NOTE | 2017-11-29 21:15 | NUR ---
PATIENT IS RESTING IN BED, BREATHING IS EVEN AND UNLABORED. CONTINUES TO REPORTS 0/10 PAIN. SCHEDULED MEDICATIONS GIVEN, ASSESSMENT DONE. PATIENT CONTINUES TO BE FRUSTRATED WITH HER HOSPITALIZATION AND VERBALIZES AGAIN "I JUST WANT TO GO HOME." PROVIDED THERAPEUTIC COMMUNICATION, HELD PATIENT'S HAND AND REASSURED HER THAT STAFF WOULD TAKE CARE OF HER AND THAT MEDICAL TEAM IS DOING EVERYTHING THEY CAN TO HELP IMPROVE HER MEDICATION CONDITION FOR EVENTUAL DISCHARGE. PATIENT STATES "OH ALRIGHT. THERE IS NOTHING I CAN DO ABOUT IT." GAVE FRESH ICE WATER, DENIES FURTHER NEEDS. CALL LIGHT WITHIN REACH, BED ALARM ON.
--- NOTE | 2017-11-29 22:39 | NUR ---
PATIENT IS RESTING IN BED, APPEARS TO BE MORE COMFORTABLE AND RELAXED. REPORTS 0/10 PAIN. DENIES NEEDS AT THIS TIME. CONTINUES TO READ MAGAZINE. CALL LIGHT WITHIN REACH, BED ALARM ON.
--- NOTE | 2017-11-30 00:19 | NUR ---
PATIENT REPOSITIONED FOR COMFORT, DENIES PAIN. UPON WAKING UP, PATIENT WAS DISORIENTED AND BECAME AGITATED WITH STAFF, THROWING PILLOWS ACROSS THE ROOM AND YELLING. WITH RE-ORIENTATION, PATIENT WAS EDUCATED ABOUT SLEEPING POSITIONS AFTER HIP SURGERY. PATIENT STATES THAT SHE UNDERSTANDS. WILL CONTINUE TO MONITOR PATIENT CLOSELY. CALL LIGHT WITHIN REACH, BED ALARM ON. REFUSING TO USE ABDUCTOR PILLOW AND CRYOCUFF. PLACED NORMAL PILLOW BETWEEN LEGS AND PILLOW ON SIDE TO PREVENT PATIENT FROM ROLLING ON SIDE.
--- NOTE | 2017-11-30 01:16 | NUR ---
PATIENT RESTING COMFORTABLY IN BED, BREATHING IS EVEN AND UNLABORED. FLACC SCORE OF 0, APPEARS TO BE ASLEEP. CALL LIGHT WITHIN REACH, BED ALARM ON.
--- NOTE | 2017-11-30 03:44 | NUR ---
PATIENT RESTING IN BED, BREATHING IS EVEN AND UNLABORED. FLACC SCORE OF 0. CALL LIGHT WITHIN REACH, BED ALARM ON.
--- NOTE | 2017-11-30 05:30 | NUR ---
PATIENT AWAKE AND FIDGITING WITH BLANKETS. ASSISTED PATIENT WITH BLANKETS, PATIENT STATES "I JUST WANT TO GO HOME." ASSISTED PATIENT WITH ADLs, BRUSHED TEETH AND HAIR, WASHED FACE. REPOSITIONED FOR COMFORT. PATIENT REPORTS 5/10 PAIN IN LEFT HIP, PAIN MEDICATION GIVEN PER EMAR. PATIENT IS NOW RESTING IN BED, BREATHING IS EVEN AND UNLABORED, APPEARS RELAXED. PATIENT IS AGREABLE TO WEAR CRYOCUFF, PUT IN PLACE ALONG WITH HEEL PROTECTORS. CONTINUES TO REFUSE ABDUCTOR PILLOW. PATIENT DENIES FURTHER NEEDS. CALL LIGHT WITHIN REACH, BED ALARM ON.
--- NOTE | 2017-11-30 06:10 | NUR ---
PATIENT HAS BEEN AWAKE OFF AND ON THROUGHOUT NIGHT. VSS, URINE OUTPUT QS, PAIN WELL CONTROLLED WITH SCHEDULED PAIN MEDICATION. CAN BECOME DISORIENTED WHEN WAKING UP AND CAN BECOME AGGRESSIVE TOWARDS STAFF, CAN BE RE-ORIENTED EASILY, RESPONDS WELL TO THERAPEUTIC COMMUNICATION. HAS NOT REQUIRED O2 THIS SHIFT, LUNGS HAVE BEEN CLEAR. DRESSING TO LEFT HIP IS CDI, CMS INTACT. HAD TO PLACE NEW IV DUE TO PATIENT PULLING OTHER IV SITES. 1PA/FWW.
--- NOTE | 2017-11-30 07:45 | NUR ---
SHIFT REPORT RECEIVED AT BEDSIDE FROM SHIRLEY. PATIENT AWAKE IN BED, ON ROOM AIR. PATIENT REPORT NO PAIN AT THIS TIME. SCD, CRYO CUFF AND HEEL PROTECTOR IN PLACE. NO DISTRESS NOTED AND PATIENT IS ALERT ORIENTED. WILL CONTINUE TO MONITOR.
--- NOTE | 2017-11-30 09:08 | NUR ---
DR LERMA IN ROOM TO SEE AND EVALUATE PATIENT AND DISCUSS PLAN OF CARE. PATIENT IS ALERT AND ORIENTED. RESPONDED TO ALL QUESTIONS. PATIENT STATED THAT THE BATTERY ON HER IMPLANT WAS THAT'S WHY SHE WAS CONFUSED AND NOT ABLE TO UNDERSTAND WHAT WAS GOING ON.
--- NOTE | 2017-11-30 09:10 | NUR ---
PHYSICAL THERAPIST SHANTA IN ROOM TO ASSIST PATIENT TO TRANSFER. PATIENT WAS ABLE TO WALK FOR ABOUT 50 FEET. PATIENT RESTING IN THE CHAIR AT THIS TIME REPORTED 9/10 PAIN ON THE LEFT HIP. PATIENT WAS MEDICATED. FAMILY IN ROOM.
--- NOTE | 2017-11-30 11:18 | NUR ---
Student Nurse entered room to complete set of vitals at 10 o clock. Patient began complaining of itching and burning sensation around IV site, where the antibiotic (Rifampin) was being infused - indicating infiltration. Student Nurse consulted with clinical instructor and the decision was made to discontinue the peripheral IV on the left forearm. The nurse then inserted a new Peripheral IV on the right forearm. Infusion was continued and newly inserted IV appeared to be successful.
--- NOTE | 2017-11-30 12:56 | NUR ---
PATIENT RESTING IN THE CHAIR DENIES PAIN AT THIS TIME. PATIENT REQUESTED ORANGE JUICE. JUICE GIVEN TO PATIENT. NO APPARENT DISTRESS. CALL LIGHT IN REACH.
--- NOTE | 2017-11-30 13:16 | NUR ---
Primary Nurse alerted the student nurse that the newly inserted IV on the right forearm had also infiltrated. The student nurse and clinical instructor proceeded to attempt starting another peripheral IV site. Three attempts were made to start the IV, and failed. The primary nurse was alerted to the situation.
--- NOTE | 2017-11-30 15:05 | NUR ---
PATIENT RESTING IN BED, JUST RECEIVED TORADOL FOR PAIN. NO OTHER COMPLAINTS CALL LIGHT IN REACH. NEW IV SITE ESTABLISHED IN THE LEFT HAND.
--- NOTE | 2017-11-30 17:02 | NUR ---
PATIENT RESTING IN BED VISITING WITH FRIEND. REPORT MINIMAL PAIN ON THE LEFT HIP. NO APPARENT DISTRESS NOTED. DRESSING IN PLACE D/C/I. WILL CONTINUE TO MONITOR.
--- NOTE | 2017-11-30 18:44 | NUR ---
PATIENT HAD DONE WELL TODAY. HAD PHYSICA THERAPY TWICE AND WAS ABLE TO A TOTAL OF 100FEET. KEYS D/C THIS PM. PATIENT IS MORE AND AWAKE FOR THIS SHIFT. CALL APPROPRIATELY. NEW IV SITE ESTABLISHED. PAIN CONTROLED WITH TORADOL IV. PATIENT IS S/L AT THIS TIME. PATIENT ATE MOST HER MEALS. DRESSING ON THE LEFT HIP D/C/I. CRYO CUFF ON. MAKE SURE BATTERY ON THE COCLEA IMPLANT IS CHANGED.
--- NOTE | 2017-11-30 20:11 | NUR ---
PT APPEARS TO BE SLEEPING AT THIS TIME. BEDSIDE REPORT FROM DAY SHIFT RN. PT IS SL IN LEFT HAND. LEFT HIP DRESSING IS C/D/I. PT VISIBLE FROM NURSING STATION. RESPIRATION EQUAL AND UNLABORED. CALL LIGHT WITHIN REACH.
--- NOTE | 2017-11-30 20:30 | NUR ---
Charge Nurse Rounding Note: F/c dc'd earlier in am shift, no void yet. Lhip dressing in place, cryocuff, scds, heel protectors in place. Resting, eyes closed, no s/s distress
--- NOTE | 2017-11-30 22:15 | NUR ---
PT OOB TO BATHROOM WITH SBA AND FWW. PT REPORTED PAIN OF 5/10 WHILE AMBULATING. VOIDED 200ML. BACK TO BED. 0.5 TAB NORCO GIVEN FOR PAIN. CRYOCUFF IN PLACE ON LEFT HIP. PT IS SL IN LEFT HAND. LUNGS ARE DIM IN THE BASES. HEART SOUNDS IRREGULAR. SCD'S IN PLACE. DRESSING IS OPSITE AND MEPLEX, C/D/I. SMALL AMOUNT OF SWELLING. CALL LIGHT WITHIN REACH. PT VISIBLE FROM NURSING STATION. HEEL PROTECTORS IN PLACE. PERSONAL ITEMS AT BEDSIDE. WATER REFRESHED.
--- NOTE | 2017-11-30 22:24 | NUR ---
HELPED PT GET BACK TO BED FROM THE BATHROOM WITH HER FWW. HOOKED UP HER SCD AND PUT CRYO BACK ON LEFT HIP. ALSO PUT ON HER HEEL PROTECTORS. BEDSIDE TABLE AND CALL LIGHT WITHIN REACH.
--- NOTE | 2017-12-01 00:15 | NUR ---
PT APPEARS TO BE SLEEPING. CRYOCUFF IN PLACE, SCD'S ON, HEEL PROTECTORS ON. CALL LGITH WITHIN REACH.
--- NOTE | 2017-12-01 01:44 | NUR ---
HELPED PT TO THE BATHROOM AND BACK TO BED WITH HER FWW. FILLED CRYO WITH FRESH ICE. PUT SCD'S AND HEEL PROTECTORS ON. BEDSIDE TABLE AND CALL LIGHT WITHIN REACH. PER PT REQUEST I INFORMED RN RAMSEY SHE WOULD LIKE A PAIN PILL. PT NEEDS NOTHING ELSE AT THIS TIME.
--- NOTE | 2017-12-01 01:45 | NUR ---
PT REPORTED PAIN OF 8/10 SCHEDULED TORIDOL GIVEN. CRYO CUFF IN PLACE. SCD'S ON. HEEL PROTECTORS IN PLACE. CALL LIGHT WITHIN REACH.
--- NOTE | 2017-12-01 03:35 | NUR ---
PT IN BED WITH HOB ELEVATED. CRYCUFF ON LEFT HIP. HEEL PROTECTORS IN PLACE. RESPIRATIONS ARE EQUAL AND NONLABORED. ASSESSMENT COMPLETED. NO CHANGES FROM BEGINING OF SHIFT. CALL LIGHT WITHIN REACH.
--- NOTE | 2017-12-01 06:09 | NUR ---
pt slept throughout the night. norco given @ 0620 for pain when ambulating. output qs. sba with fww. sl in left hand. scheduled toridol. pt is a/o. dressing on left hip is c/d/i. cryocuff refreshed this am. heel protectors. plan to change to swing bed. hearing aid in left ear. to work with pt. up to chair.
--- NOTE | 2017-12-01 07:35 | NUR ---
SHIFT REPORT RECEIVED FROM RAMSEY. PATIENT AWAKE IN BED . REPORTED NO PAIN AT THIS TIME. CRYO CUFF, SCD AND HELL PROTECTOR ON. CALL LIGHT IN REACH.
--- NOTE | 2017-12-01 08:44 | NUR ---
IN ROOM WITH STUDENT NURSE TO ADMINISTER MORNING MEDS. PATIENT UP TO CHAIR. REPORTED LEFT HIP PAIN. SHE WAS MEDICATED WITH TORADOL. NO APPARENT DISTRESS NOTED. WILL CONTINUE TO MONITOR
--- NOTE | 2017-12-01 09:07 | NUR ---
Patient ambulated to the restroom twice this morning, with assisstance from one nurse and a walker. Bed was made, room was organized by student nurse and primary nurse. Breakfast was set up for the patient, patient was independent when eating the meal.
--- NOTE | 2017-12-01 09:07 | NUR ---
IN ROOM WITH STUDENT NURSE TO ADMINISTER MORNING MEDS. PATIENT UP TO CHAIR. REPORTED LEFT HIP PAIN. SHE WAS MEDICATED WITH TORADOL. NO APPARENT DISTRESS NOTED. WILL CONTINUE TO MONITOR.
--- NOTE | 2017-12-02 22:15 | DS ---
[facility] [address], [place] [address] Signed ADMISSION DATE: 11/27/2017 DISCHARGE DATE: 12/01/2017 ADMISSION DIAGNOSIS: Degenerative joint disease, left hip. DISCHARGE DIAGNOSES: 1. Degenerative joint disease, left hip. 2. Postoperative respiratory failure. PROCEDURE PERFORMED DURING THIS HOSPITALIZATION: Left total hip arthroplasty. BRIEF HISTORY: Kelli is an 87-year-old female with severe arthritis in her hip. Nonoperative treatment had failed and she wished to proceed with operative intervention. DESCRIPTION OF PROCEDURE: Once consent was obtained, she was taken to the operating room, underwent uneventful surgery. She was taken to the recovery room and subsequently to the orthopedic floor. She was initially placed on oxycodone, however, she got none prior to being found unresponsive in her room. She was resuscitated and taken to the ICU. She was placed on a BiPAP and was able to maintain, however, her blood gases did show elevated CO2. Her laboratory work initially was relatively normal. Reversal agents of Narcan and Romazicon were ineffective in changing her mental status. That night her respiratory status had deteriorated some or at least had shown no improvement. We elected to try intubation, however, she woke up at that point and her respiratory status improved as well as her mental status. By the next day, she was back to normal mental state for the most part. Her laboratory work did reveal markedly elevated liver enzymes and ammonia level. These were reversed and normalized by the time of discharge. She was seen by Physical Therapy. She was able to get out of bed. However, she requires significant assistance. Did not have good safety. Therefore, she will need to be continued on inpatient rehab in swing bed status. She will continue on her current medications including the Toradol and [place] for pain as well as gabapentin. She will continue with inpatient rehab for range of motion, strength, and balance. She does need that due to poor balance, poor strength, and inability to get herself in and out of bed safely. She does live at home alone. Has no family to help her and we will need to be back to pretty close to baseline before going home. Electronically Signed By: ELVIA STEWARD MD 12/02/17 2215 PATIENT NAME: KELLI GALLAGHER DISCHARGE SUMMARY DATE OF : 34 REPORT #: [id number] PHYSICIAN: ELVIA STEWARD MD PCP: GISSEL WADDELL MD REPORT IS CONFIDENTIAL AND NOT TO BE RELEASED WITHOUT AUTHORIZATION [address] [address] Signed Elvia Steward MD BA/CORRINAL /[id number] Copies: ~ Electronically Signed By: ELVIA STEWARD MD 12/02/17 2215 PATIENT NAME: KELLI GALLAGHER DISCHARGE SUMMARY DATE OF : 34 REPORT #: [id number] PHYSICIAN: ELVIA STEWARD MD PCP: GISSEL WADDELL MD REPORT IS CONFIDENTIAL AND NOT TO BE RELEASED WITHOUT AUTHORIZATION
== END 2017-12-01 08:50 | disposition swing bed (61) | DRG 469 ==
LOC: DSVR 09-11 05:30 → MS 09-11 05:30 → CCU 11-27 06:45 → MS 11-27 06:45 → DSVR 11-27 06:45 → MS 11-27 06:46 → CCU 11-27 16:27 → MS 11-28 14:12 → CCU 11-28 14:13 → MS 11-29 17:40
PROVIDERS: ADMIT Specialist
PROC: 5A09357 Assistance with Respiratory Ventilation, Less than 24 Consecutive Hours, Continuous Positive Airway Pressure (ICD-10-PCS; 2017-11-27)
PROC: 0SRB03Z Replacement of Left Hip Joint with Ceramic Synthetic Substitute, Open Approach (ICD-10-PCS; principal; 2017-11-27 09:00)
DX: M16.12 Unilateral primary osteoarthritis, left hip (principal); J95.821 Acute postprocedural respiratory failure; I10 Essential (primary) hypertension; E03.9 Hypothyroidism, unspecified; Z87.440 Personal history of urinary (tract) infections
CPT/HCPCS: 01214; 36415; 36600; 70450; 72170; 80048; 80053; 80076; 81001; 82140; 82803; 84484; 85025; 92526; 92610; 94660; 97110; 97116; 97162; 97163; 97165; 97530; C1776; G8978; G8979; J0131; J0690; J1100; J1885; J2250; J2274; J2310; J2370; J2405; J2543; J2704; J7030; J7040; J7120

== ENCOUNTER 2017-09-07 18:54 | Emergency (ER) | payer MEDICARE, OTHER ==
[~2017-09-07] VITALS: Ht 149.9 cm; Wt 55.7 kg
--- OUTSIDE RECORDS SUMMARY | ~2017-09-07 | XMS ---
Demographics + + + | Address | [address] | | | [address] | | | [place] [address] | + + + | Preferred Language | Unknown | + + + | Marital Status | Unknown | + + + | Holiness Affiliation | Unknown | + + + | Race | Unknown | + + + | Ethnic Group | Unknown | + + + Author + + + | Author | [facility] | + + + | Organization | [facility] | + + + | Address | [address] | | | [place] [address] | + + + | Phone | | + + + Care Team Providers + + + + | Care Thermite Welder Name | Role | Phone | + + + + Unavailable | Unavailable | + + + + PROBLEMS +---------+ + + +--------+ + + | Type | Condition | ICD9-CM | [id number] | Onset | Condition | SNOMED | | | | Code | Code | Dates | Status | Code | +---------+ + + +--------+ + + | Problem | HTN | | I10 | | Active | 89157309 | | | (hypertens | | | | | | | | ion) | | | | | | +---------+ + + +--------+ + + | Problem | Headache | | R51 | | Active | 35186813 | +---------+ + + +--------+ + + | Problem | Anxiety | | F41.9 | | Active | 06001258 | +---------+ + + +--------+ + + | Problem | Left rib | S22.32XA | | | Active | 24166442 | | | fracture | | | | | | +---------+ + + +--------+ + + | Problem | Rib | S22.39XA | | | Active | 62035438 | | | fractures | | | | | | +---------+ + + +--------+ + + | Problem | Recurrent | R29.6 | | | Active | 398837932 | | | falls | | | | | | +---------+ + + +--------+ + + | 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 | 651788559 | | | us | | | | | | | | faecalis | | | | | | | | infection | | | | | | +---------+ + + +--------+ + + | Problem | Diabetes | | E11.9 | | Active | 67070587 | | | mellitus | | | | | | +---------+ + + +--------+ + + | Problem | Heart | | R01.1 | | Active | 81774814 | | | murmur | | | | | | +---------+ + + +--------+ + + | Problem | Unsteady | R26.81 | | | Active | 331009658 | | | gait | | | | | | +---------+ + + +--------+ + + | Problem | Osteoporos | | M81.0 | | Active | 48056623 | | | is | | | | | | +---------+ + + +--------+ + + | 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 | 20437114 | | | tic hernia | | | | | | | | without | | | | | | | | obstructio | | | | | | | | n or | | | | | | | | gangrene | | | | | | +---------+ + + +--------+ + + | Problem | Urinary | | R32 | | Active | 504011504 | | | incontinen | | | | | | | | ce | | | | | | +---------+ + + +--------+ + + | Problem | Collapsed | | M48.56XA | | Active | 254400320 | | | vertebra, | | | | | | | | not | | | | | | | | elsewhere | | | | | | | | classified | | | | | | | | , lumbar | | | | | | | | region, | | | | | | | | initial | | | | | | | | encounter | | | | | | | | for | | | | | | | | fracture | | | | | | +---------+ + + +--------+ + + | Problem | Cochlear | Z96.21 | | | Active | | | | implant in | | | | | | | | place | | | | | | +---------+ + + +--------+ + + | Problem | 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 | | | Active | 201322445 | | | osis, | | | | | | | | generalize | | | | | | | | d, | | | | | | | | multiple | | | | | | | | joints | | | | | | +---------+ + + +--------+ + + | Problem | Hyperchole | | E78.0 | | Active | 02626067 | | | sterolemia | | | | | | +---------+ + + +--------+ + + | Problem | Gastropare | | K31.84 | | Active | 930537380 | | | sis | | | | | | +---------+ + + +--------+ + + | Problem | Hypothyroi | | E03.9 | | Active | 45906454 | | | dism | | | | | | +---------+ + + +--------+ + + | Problem | Restless | | G25.81 | | Active | 39589464 | | | leg | | | | | | | | syndrome | | | | | | +---------+ + + +--------+ + + | Problem | GERD | | K21.9 | | Active | 457212771 | | | (gastroeso | | | | | | | | phageal | | | | | | | | reflux | | | | | | | | disease) | | | | | | +---------+ + + +--------+ + + ALLERGIES Unknown Allergies SOCIAL HISTORY No smoking Hx information available PLAN OF CARE VITAL SIGNS MEDICATIONS Unknown Medications RESULTS No Results PROCEDURES No Known procedures IMMUNIZATIONS No Known Immunizations"
--- OUTSIDE RECORDS SUMMARY | ~2017-09-07 | XMS | Clinical Summary ---
Demographics + + + | Address | [address] | | | [place] [address] | + + + | Home Phone | | + + + | Preferred Language | Unknown | + + + | Marital Status | Single | + + + | Latter-Day Affiliation | CAT | + + + [...] [address] | | #[place] | [address] | +------+ + + + +------- + ECON | Unknown | | +------+ + + + +------- + Care Team Providers + +------+ + | Care Service Correspondent Name | Role | Phone | + +------+ + | Amilcar Jean MD | PP | | + +------+ + Source Comments TRIDA is fully live on both EpicCare Ambulatory and EpicCare InPatient.[facility] Allergies + + + + + + [...] Rd | | | | | | [place], [place] | | | | | | [address] | | +--------+ + + + + [...] | | 04/11/ | CI522 | | [id number]: Qty: 1 on | | Ear | RONA | | 2016 | /[id number] | | 06/11/2015 by Sachin Ng | | | | | | [phone] | | MD Kim | | | | | | 6 / | + +------+--------+ +--------+--------+--------+ Procedures + +--------+ + + + | Procedure Name | Priori | Date/Time | Associated Diagnosis | Comments | | | ty | | | | + +--------+ + + + | [place] EVL AUD RHB STTS | Routin | 06/14/2017 | 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
--- OUTSIDE RECORDS SUMMARY | ~2017-09-07 | XMS ---
Demographics + + + | Address | [address] | | | [address] | | | [place] [address] | + + + | Preferred Language | Unknown | + + + | Marital Status | Unknown | + + + | Spiritism Affiliation | Unknown | + + + | Race | Unknown | + + + | Ethnic Group | Unknown | + + + Author + + + | Author | [facility] | + + + | Organization | [facility] | + + + | Address | [address] | | | [place] [address] | + + + | Phone | | + + + Care Team Providers + + + + | Care Development Manager Name | Role | Phone | + + + + Unavailable | Unavailable | + + + + PROBLEMS +---------+ + + +--------+ + + | Type | Condition | ICD9-CM | [id number] | Onset | Condition | SNOMED | | | | Code | Code | Dates | Status | Code | +---------+ + + +--------+ + + | Problem | HTN | | I10 | | Active | 76714677 | | | (hypertens | | | | | | | | ion) | | | | | | +---------+ + + +--------+ + + | Problem | Headache | | R51 | | Active | 42607492 | +---------+ + + +--------+ + + | Problem | Anxiety | | F41.9 | | Active | 81931261 | +---------+ + + +--------+ + + | Problem | Left rib | S22.32XA | | | Active | 76648650 | | | fracture | | | | | | +---------+ + + +--------+ + + | Problem | Rib | S22.39XA | | | Active | 10512511 | | | fractures | | | | | | +---------+ + + +--------+ + + | Problem | Recurrent | R29.6 | | | Active | 897865334 | | | falls | | | | | | +---------+ + + +--------+ + + | 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 | 434215610 | | | us | | | | | | | | faecalis | | | | | | | | infection | | | | | | +---------+ + + +--------+ + + | Problem | Diabetes | | E11.9 | | Active | 98909654 | | | mellitus | | | | | | +---------+ + + +--------+ + + | Problem | Heart | | R01.1 | | Active | 83678054 | | | murmur | | | | | | +---------+ + + +--------+ + + | Problem | Unsteady | R26.81 | | | Active | 205209510 | | | gait | | | | | | +---------+ + + +--------+ + + | Problem | Osteoporos | | M81.0 | | Active | 89521346 | | | is | | | | | | +---------+ + + +--------+ + + | 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 | 98727657 | | | tic hernia | | [...] | | R32 | | Active | 069989674 | | | incontinen | | | | | | | | ce | | | | | | +---------+ + + +--------+ + + | Problem | Collapsed | | M48.56XA | | Active | 923696241 | | | vertebra, | | | [...] | M15.9 | | | Active | 699584128 | | | osis, | | | | | | | | generalize | | | | | | | | d, | | | | | | | | multiple | | | | | | | | joints | | | | | | +---------+ + + +--------+ + + | Problem | Hyperchole | | E78.0 | | Active | 91878252 | | | sterolemia | | | | | | +---------+ + + +--------+ + + | Problem | Gastropare | | K31.84 | | Active | 799219564 | | | sis | | | | | | +---------+ + + +--------+ + + | Problem | Hypothyroi | | E03.9 | | Active | 13045521 | | | dism | | | | | | +---------+ + + +--------+ + + | Problem | Restless | | G25.81 | | Active | 90552884 | | | leg | | | | | | | | syndrome | | | | | | +---------+ + + +--------+ + + | Problem | GERD | | K21.9 | | Active | 280229458 | | | (gastroeso | | | | | | | | phageal | | | | | | | | reflux | | | | | | | | disease) | | | | | | +---------+ + + +--------+ + + ALLERGIES + + + + +--------+ | Substance | Reaction | Event Type | Date | Status | + + + + +--------+ | codiene | Unknown | Drug Allergy | Feb, | Active | + + + + +--------+ | Tramadol HCl | Unknown | Drug Allergy | Feb, | Active | + + + + +--------+ | Sulfa | Unknown | Drug Allergy | Feb, | Active | + + + + +--------+ | Oxycodone-Aceta | sick | Drug Allergy | Feb, | Active | | minophen | | | | | + + + + +--------+ | Cipro | Unknown | Drug Allergy | Feb, | Active | + + + + +--------+ SOCIAL HISTORY No smoking Hx information available PLAN OF CARE + +---------+ | Activity | Details | + +---------+ +---+ | | +---+ + + + | Follow Up | 4 Weeks Reason:null | + + + VITAL SIGNS + + + + | Height | 58 in | 2017-02-14 | + + + + | Weight | 120.4 lbs | 2017-02-14 | + + + + | BMI | 25.16 kg/m2 | 2017-02-14 | + + + + | Temperature | 97.3 degrees Fahrenheit | 2017-02-14 | + + + + | Heart Rate | 60 /min | 2017-02-14 | + + + + | Blood pressure systolic | 143 mm Hg | 2017-02-14 | + + + + | Blood pressure diastolic | 63 mm Hg | 2017-02-14 | + + + + MEDICATIONS + + + + + + + +--------+ | Medicati | Instruct | Dosage | Frequenc | Start | End Date | Duration | Status | | on | ions | | y | Date | | | | + + + + + + + +--------+ | Aspirin | Orally | 1 tablet | | | | | Active | | 325 MG | prn | | | | | | | + + + + + + + +--------+ | Vitamin | Orally | 1 | | 07 Mar, | 3 Sep, | 90 | Active | | D | once a | capsule | | 2016 | 2017 | day(s) | | | (Ergocal | week | | | | | | | | ciferol) | | | | | | | | | [address]189 | | | | | | | | | UNIT | | | | | | | | + + + + + + + +--------+ | Oxybutyn | Orally | 1 Tablet | 24h | | | | Active | | in | Once a | | | | | | | | Chloride | day | | | | | | | | 10 MG | | | | | | | | + + + + + + + +--------+ | Pilocarp | Ophthalm | 1 drop | 8h | | | | Active | | ine HCl | ic Three | into | | | | | | | 2 % | times a | affected | | | | | | | | day | eye | | | | | | + + + + + + + +--------+ | Caltrate | Orally | 1 tablet | 24h | | | | Active | | 600+D | Once a | with | | | | | | | 600-400 | day | food | | | | | | | MG-UNIT | | | | | | | | + + + + + + + +--------+ | Diclofen | Orally | 1 tablet | 12h | 11 Feb, | 31 Job, | 20 | Active | | ac | bid | with | | 2017 | 2017 | day(s) | | | Sodium | | food or | | | | | | | 50 mg | | milk | | | | | | + + + + + + + +--------+ | Protonix | Orally | 1 tablet | 24h | 11 Job, | | 30 | Active | | 40 mg | Once a | | | 2017 | | day(s) | | | | day | | | | | | | + + + + + + + +--------+ | Hydrochl | Orally | 1 tablet | 24h | | | 30 | Active | | orothiaz | Once a | | | | | day(s) | | | yandel 50 | day | | | | | | | | MG | | | | | | | | + + + + + + + +--------+ | Vitamin | Orally | 1 tablet | 24h | | | | Active | | C 500 MG | Once a | | | | | | | | | day | | | | | | | + + + + + + + +--------+ | Multi | Orally | 1 tablet | 24h | | | | Active | | For Her | Once a | | | | | | | | | day | | | | | | | + + + + + + + +--------+ | Percocet | Orally | 1 tablet | 6h | | | | Active | | 5-325 | every 6 | as | | | | | | | MG | hrs | needed | | | | | | + + + + + + + +--------+ | Levothyr | Orally | 1 tablet | 24h | | | 30 | Active | | oxine | Once a | every | | | | day(s) | | | Sodium | day | morning | | | | | | | 100 MCG | | on an | | | | | | | | | empty | | | | | | | | | stomach | | | | | | + + + + + + + +--------+ | Amlodipi | Orally | 1 tablet | 24h | | | 30 | Active | | ne | Once a | | | | | day(s) | | | Besylate | day | | | | | | | | 5 MG | | | | | | | | + + + + + + + +--------+ | Fosamax | Orally | 1 tablet | | 07 Oct, | 3 Sep, | 90 | Active | | 70 MG | once a | | | 2017 | 2017 | day(s) | | | | week | | | | | | | + + + + + + + +--------+ | Lexapro | Orally | 1 tablet | 24h | 17 Nov, | | 30 | Active | | 5 MG | Once a | | | 2016 | | day(s) | | | | day | | | | | | | + + + + + + + +--------+ RESULTS No Results PROCEDURES + + + + + | Procedure | Date Ordered | Related Diagnosis | Body Site | + + + + + | Office Visit, Est | February 14, 2017 | | | | Pt., Level 4 | | | | + + + + + | [facility] MED/CURRENT | February 14, 2017 | | | | MED MERGE | | | | + + + + + IMMUNIZATIONS No Known Immunizations"
--- OUTSIDE RECORDS SUMMARY | ~2017-09-07 | XMS ---
Demographics + + + | Address | [address] | | | [address] | | | [place] [address] | + + + | Preferred Language | Unknown | + + + | Marital Status | Unknown | + + + | Jewish Affiliation | Unknown | + + + | Race | Unknown | + + + | Ethnic Group | Unknown | + + + Author + + + | Author | [facility] | + + + | Organization | [facility] | + + + | Address | [address] | | | [place] [address] | + + + | Phone | | + + + Care Team Providers + + + + | Care Sole Filler Name | Role | Phone | + + + + Unavailable | Unavailable | + + + + PROBLEMS +---------+ + + +--------+ + + | Type | Condition | ICD9-CM | [id number] | Onset | Condition | SNOMED | | | | Code | Code | Dates | Status | Code | +---------+ + + +--------+ + + | Problem | HTN | | I10 | | Active | 35249075 | | | (hypertens | | | | | | | | ion) | | | | | | +---------+ + + +--------+ + + | Problem | Headache | | R51 | | Active | 33575489 | +---------+ + + +--------+ + + | Problem | Anxiety | | F41.9 | | Active | 40397242 | +---------+ + + +--------+ + + | Problem | Left rib | S22.32XA | | | Active | 97187176 | | | fracture | | | | | | +---------+ + + +--------+ + + | Problem | Rib | S22.39XA | | | Active | 62831582 | | | fractures | | | | | | +---------+ + + +--------+ + + | Problem | Recurrent | R29.6 | | | Active | 185674813 | | | falls | | | | | | +---------+ + + +--------+ + + | 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 | 647030869 | | | us | | | | | | | | faecalis | | | | | | | | infection | | | | | | +---------+ + + +--------+ + + | Problem | Diabetes | | E11.9 | | Active | 25155011 | | | mellitus | | | | | | +---------+ + + +--------+ + + | Problem | Heart | | R01.1 | | Active | 43940649 | | | murmur | | | | | | +---------+ + + +--------+ + + | Problem | Unsteady | R26.81 | | | Active | 704346068 | | | gait | | | | | | +---------+ + + +--------+ + + | Problem | Osteoporos | | M81.0 | | Active | 52601914 | | | is | | | | | | +---------+ + + +--------+ + + | 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 | 27394381 | | | tic hernia | | [...] | | R32 | | Active | 562897981 | | | incontinen | | | | | | | | ce | | | | | | +---------+ + + +--------+ + + | Problem | Collapsed | | M48.56XA | | Active | 136574640 | | | vertebra, | | | [...] | M15.9 | | | Active | 713845799 | | | osis, | | | | | | | | generalize | | | | | | | | d, | | | | | | | | multiple | | | | | | | | joints | | | | | | +---------+ + + +--------+ + + | Problem | Hyperchole | | E78.0 | | Active | 76188186 | | | sterolemia | | | | | | +---------+ + + +--------+ + + | Problem | Gastropare | | K31.84 | | Active | 925405012 | | | sis | | | | | | +---------+ + + +--------+ + + | Problem | Hypothyroi | | E03.9 | | Active | 71303632 | | | dism | | | | | | +---------+ + + +--------+ + + | Problem | Restless | | G25.81 | | Active | 59485948 | | | leg | | | | | | | | syndrome | | | | | | +---------+ + + +--------+ + + | Problem | GERD | | K21.9 | | Active | 682425244 | | | (gastroeso | | | [...]
--- OUTSIDE RECORDS SUMMARY | ~2017-09-07 | XMS | Clinical Summary ---
Demographics + + + | Address | [address] | | | [place] [address] | + + + | Home Phone | | + + + | Preferred Language | Unknown | + + + | Marital Status | Single | + + + | Anabaptism Affiliation | CAT | + + + [...] [address] | | #[place] | [address] | +------+ + + + +------- + ECON | Unknown | | +------+ + + + +------- + Care Team Providers + +------+ + | Care Basic Sciences Dean Name | Role | Phone | + +------+ + | Amilcar Jean MD | PP | | + +------+ + Source Comments TRIDA is fully live on both EpicCare Ambulatory and EpicCare InPatient.[facility] Allergies + + + + [...] [address] | | | | | | [place], [place] | | | | | | [address] | | +--------+ + + + + [...] | | 04/11/ | CI522 | | [id number]: Qty: 1 on | | Ear | RONA | | 2016 | /[id number] | | 06/11/2015 by Sachin Ng | | | | | | [phone] | | MD Kim | | | | | | 6 / | + +------+--------+ +--------+--------+--------+ Procedures + +--------+ + + + | Procedure Name | Priori | Date/Time | Associated Diagnosis | Comments | | | ty | | | | + +--------+ + + + | [place] EVL AUD RHB STTS | Routin | 06/14/2017 | 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
--- OUTSIDE RECORDS SUMMARY | ~2017-09-07 | XMS ---
Demographics + + + | Address | [address] | | | [address] | | | [place] [address] | + + + | Preferred Language | Unknown | + + + | Marital Status | Unknown | + + + | Baptist Affiliation | Unknown | + + + | Race | Unknown | + + + | Ethnic Group | Unknown | + + + Author + + + | Author | [facility] | + + + | Organization | [facility] | + + + | Address | [address] | | | [place] [address] | + + + | Phone | | + + + Care Team Providers + + + + | Care Breeder Service Technician Name | Role | Phone | + + + + Unavailable | Unavailable | + + + + PROBLEMS +---------+ + + +--------+ + + | Type | Condition | ICD9-CM | [id number] | Onset | Condition | SNOMED | | | | Code | Code | Dates | Status | Code | +---------+ + + +--------+ + + | Problem | HTN | | I10 | | Active | 11810185 | | | (hypertens | | | | | | | | ion) | | | | | | +---------+ + + +--------+ + + | Problem | Headache | | R51 | | Active | 87302862 | +---------+ + + +--------+ + + | Problem | Anxiety | | F41.9 | | Active | 30592007 | +---------+ + + +--------+ + + | Problem | Left rib | S22.32XA | | | Active | 27565912 | | | fracture | | | | | | +---------+ + + +--------+ + + | Problem | Rib | S22.39XA | | | Active | 42712408 | | | fractures | | | | | | +---------+ + + +--------+ + + | Problem | Recurrent | R29.6 | | | Active | 553025390 | | | falls | | | | | | +---------+ + + +--------+ + + | 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 | 942333292 | | | us | | | | | | | | faecalis | | | | | | | | infection | | | | | | +---------+ + + +--------+ + + | Problem | Diabetes | | E11.9 | | Active | 61562176 | | | mellitus | | | | | | +---------+ + + +--------+ + + | Problem | Heart | | R01.1 | | Active | 21821578 | | | murmur | | | | | | +---------+ + + +--------+ + + | Problem | Unsteady | R26.81 | | | Active | 509778429 | | | gait | | | | | | +---------+ + + +--------+ + + | Problem | Osteoporos | | M81.0 | | Active | 98163620 | | | is | | | | | | +---------+ + + +--------+ + + | 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 | 51895355 | | | tic hernia | | [...] | | R32 | | Active | 779103739 | | | incontinen | | | | | | | | ce | | | | | | +---------+ + + +--------+ + + | Problem | Collapsed | | M48.56XA | | Active | 304671601 | | | vertebra, | | | [...] | M15.9 | | | Active | 137006448 | | | osis, | | | | | | | | generalize | | | | | | | | d, | | | | | | | | multiple | | | | | | | | joints | | | | | | +---------+ + + +--------+ + + | Problem | Hyperchole | | E78.0 | | Active | 20276093 | | | sterolemia | | | | | | +---------+ + + +--------+ + + | Problem | Gastropare | | K31.84 | | Active | 067623721 | | | sis | | | | | | +---------+ + + +--------+ + + | Problem | Hypothyroi | | E03.9 | | Active | 92130865 | | | dism | | | | | | +---------+ + + +--------+ + + | Problem | Restless | | G25.81 | | Active | 04076775 | | | leg | | | | | | | | syndrome | | | | | | +---------+ + + +--------+ + + | Problem | GERD | | K21.9 | | Active | 858030813 | | | (gastroeso | | | [...] + + + | Follow Up | as scheduled with PCP Reason:null | + + + | Pending Test | Comprehensive Metabolic Panel | + + + | Pending Test | Rule Out PA Panel | + + + | Pending Test | BNP | + + + | Pending Test | CBC | + + + | Pending Test | X ray : Chest AP/Lat | + + + VITAL SIGNS + + + + | Height | 58 in | 2017-02-27 | + + + + | Weight | 122.4 lbs | 2017-02-27 | + + + + | BMI | 25.58 kg/m2 | 2017-02-27 | + + + + | Temperature | 98.0 degrees Fahrenheit | 2017-02-27 | + + + + | Heart Rate | 68 /min | 2017-02-27 | + + + + | Blood pressure systolic | 155 mm Hg | 2017-02-27 | + + + + | Blood pressure diastolic | 92 mm Hg | 2017-02-27 | + + + + MEDICATIONS + [...] | 1 tablet | 24h | 11 Feb, | | 30 | Active | | 40 mg | Once a | | | 2016 [...] | Orally | 1 | | 07 Oct, | 3 Sep, | 90 | Active | | D | once a | capsule | | 2016 | 2017 | day(s) | | | (Ergocal | week | | | | | | | | ciferol) | | | | | | | | | [address] | | | | | | | [...] MG | once a | | | 2016 | 2016 | day(s) | | | | week [...] | 12h | 11 Feb, | 31 Feb, | 20 | Active | | ac | bid | with | | 2016 | 2016 | day(s) | | | Sodium | [...] | 1 tablet | 24h | 17 Apr, | | 30 | Active | | 5 MG | Once a | | | 2017 [...] + | Office Visit, Est | February 27, 2017 | | | | Pt., Level 3 | | | | + + + + + IMMUNIZATIONS No Known Immunizations"
--- OUTSIDE RECORDS SUMMARY | ~2017-09-07 | XMS | Encounter Summary ---
Demographics + + + | Address | [address] | | | [place] [address] | + + + | Home Phone | | + + + | Preferred Language | Unknown | + + + | Marital Status | Single | + + + | Mosque Affiliation | CAT | + + + | Race | White | + + + | Ethnic Group | Not or | + + + Author + + + | Author | [facility] | + + + | Organization | [facility] | + + + | Address | Unknown | + + + | Phone | Unavailable | + + + Support +------+ + + + +------- + | Name | Relationship | Address | Phone | +------+ + + + +------- + ECON | [address] | | #[place] | [address] | +------+ + + + +------- + ECON | Unknown | | +------+ + + + +------- + Care Team Providers + +------+ + | Care Cattery Operator Name | Role | Phone | [...] + + + | Closed | | State Comptroller | | Non-[facility] | Ent | | | | | | Epic Dept | Audiology [facility] | | | | | | | [address] | | | | | | | [address] | | | | | | | [facility] | | | | | | | Mailcode: | | | | | | | [address] | | | | | | | Physician's | | | | | | | Tee | | | | | | | [place], [place] | | | | | | | [address] | | | | | | | Phone: | | | | | | | [phone] | | | | | | | Fax: | | | | | | | [phone] | +--------+--------+ + + + + Encounter [...] [address] | [facility] | | | | | [facility] | [place], [place] | | | | | Mailcode: [address] | [address] | | | | | Physician's Tee | | | | | | [place], [place] | | | | | | [address] | | | | | | [phone] | | | +--------+ + + + [facility] Name: Domenica Gallagher : 1930 Date of Visit: 06/14/2017 Interval: Routine 3 month Participants: Rambo (Caregiver) CI: Left PERALTA: None Elementary Educator: [employer] Internal: CI522 Magnet Strength: 1X Adult Cochlear Implant Programming Summary Domenica Gallagher, 86 y.o., [facility] [...] christophe at 60 dB SPL in Program 1/[employer] 24 in the soundfield unless otherwise noted. The following responses were obtained: Aided Thresholds: [phone] 2000 3000 4000 6000 SRT CI - [...] me at . Roxanne Wynne, DANIEA Clinical State Comptroller Board Certified in Audiology [facility] Department of Otolaryngology Audiology Services [address] [place] [address] in this encounter Plan of Treatment +--------+ + + + + | Date | Type | Specialty | Care Team | Description | +--------+ + + + + | 12/29/ | Diagnostic | State Comptroller | Nidia Lee | | | 2018 | Visit | | K, AuD [address] | | | | | | [address] | | | | | | [place], [place] | | | | | | [address] | | +--------+ + + + + as of this encounter Procedures + +--------+ + + + | Procedure Name | Priori | Date/Time | Associated Diagnosis | Comments | | | ty | | | | + +--------+ + + + | [place] ARMANDOL AUD RHB STTS | Routin | [...]
--- OUTSIDE RECORDS SUMMARY | ~2017-09-07 | XMS | Encounter Summary ---
Demographics + + + | Address | [address] | | | [place] [address] | + + + | Home Phone [...] Author + + + | Author | [facility] | + + + | Organization | [facility] | + + + | Address | Unknown | + + + | Phone | Unavailable | + + + Support +------+ + + + +------- + | Name | Relationship | Address | Phone | +------+ + + + +------- + ECON | [address] | | #[place] | [address] | +------+ + + + +------- + ECON | Unknown | | +------+ + + + +------- + Care Team Providers + +------+ + | Care Pizza Delivery Name | Role | Phone | + [...] + + + | Closed | | Provider Education Specialist | | Non-[facility] | Ent | | | | | | Epic Dept | Audiology [facility] | | | | | | | [address] | | | | | | | [address] | | | | | | | [facility] | | | | | | | Mailcode: | | | | | | | [address] | | | | | | | Physician's | | | | | | | Tee | | | | | | | [place], [place] | | | | | | | [address] | | | | | | | Phone: | | | | | | | [phone] | | | | | | | Fax: | | | | | | | [phone] | +--------+--------+ + + + + Encounter [...] at [facility] [address] | [facility] | | | | | [facility] | [place], [place] | | | | | Mailcode: [address] | [address] | | | | | Physician's Tee | | | | | | [place], [place] | | | | | | [address] | | | | | | [phone] | | | +--------+ + + + [...] may be different f rom the original. [facility] Cochlear Implant Program Name: Domenica Gallagher : 1930 Date of Visit: 06/14/2017 Interval: Routine 3 month Participants: Rambo (Caregiver) CI: Left PERALTA: None Dialysis Patient Care Technician: INPHI Internal: CI522 Magnet Strength: 1X Adult Cochlear Implant Programming Summary Domenica Gallagher, 86 y.o., was seen by [facility] Audiology for follow up of her [...] christophe at 60 dB SPL in Program 1/[employer] 24 in the soundfield unless otherwise noted. The following responses were obtained: Aided Thresholds: [phone] 2000 3000 4000 6000 SRT CI - [...] me at . Roxanne Wynne, DANIEA Clinical Provider Education Specialist Board Certified in Audiology [facility] Department of Otolaryngology Audiology Services [address], [address] [place] [address] in this encounter Plan of Treatment +--------+ + + + + | Date | Type | Specialty | Care Team | Description | +--------+ + + + + | 12/29/ | Diagnostic | Provider Education Specialist | Nidia Lee | | | 2018 | Visit | | K, AuD [address] | | | | | | [address] | | | | | | [place], [place] | | | | | | [address] | | +--------+ + + + + as of this encounter Procedures + +--------+ + + + | Procedure Name | Priori | Date/Time | Associated Diagnosis | Comments | | | ty | | | | + +--------+ + + + | [place] ARMANDOL AUD RHB STTS | Routin | [...]
[~2017-09-07 18:54] MED LIST changes: +ASPIRIN325 MG PO
== END 2017-09-08 01:15 | disposition home or self-care (01) ==
LOC: ED 18:54
PROC: 4A0D7LZ Measurement of Urinary Volume, Via Natural or Artificial Opening (ICD-10-PCS; principal; 2017-09-07)
PROC: 0T9B70Z Drainage of Bladder with Drainage Device, Via Natural or Artificial Opening (ICD-10-PCS; 2017-09-07)
DX: R33.9 Retention of urine, unspecified (principal); I10 Essential (primary) hypertension; E03.9 Hypothyroidism, unspecified; Z87.891 Personal history of nicotine dependence; Z88.2 Allergy status to sulfonamides; Z88.1 Allergy status to other antibiotic agents; Z88.5 Allergy status to narcotic agent; Z79.899 Other long term (current) drug therapy; Z79.82 Long term (current) use of aspirin
CPT/HCPCS: 51702; 51798; 81001; 99284

== ENCOUNTER 2017-09-10 17:03 | Emergency (ER) | payer MEDICARE, OTHER ==
[~2017-09-10] VITALS: Ht 149.9 cm; Wt 53.5 kg
--- OUTSIDE RECORDS SUMMARY | 2017-09-10 17:54 | XMS | Encounter Summary ---
Demographics + + + | Address | [address] | | | [place] [address] | + + + | Home Phone | | + + + | Preferred Language | Unknown | + + + | Marital Status | Single | + + + | Holiness Affiliation | CAT | + + + | Race | White | + + + | Ethnic Group | Not or | + + + Author + + + | Author | [facility] | + + + | Organization | [facility] | + + + | Address | Unknown | + + + | Phone | Unavailable | + + + Support +------+ + + + +------- + | Name | Relationship | Address | Phone | +------+ + + + +------- + ECON | [address] | | #[place] | [address] | +------+ + + + +------- + ECON | Unknown | | +------+ + + + +------- + Care Team Providers + +------+ + | Care Senior Revenue Accountant Name | Role | Phone | + +------+ + | Amilcar Jean MD | PCP | | + +------+ + Reason for Visit + + + | Reason | Comments | + + + | HL - Hearing loss | | + + + Audiology Services (Routine) +--------+--------+ + + + + | Status | Reason | Specialty | Diagnoses / | Referred By | Referred To | | | | | Procedures | Contact | Contact | +--------+--------+ + + + + | Closed | | Numerologist | | Non-[facility] | Ent | | | | | | Epic Dept | Audiology [facility] | | | | | | | [address] | | | | | | | [address] | | | | | | | [facility] | | | | | | | Mailcode: | | | | | | | [address] | | | | | | | Physician's | | | | | | | Tee | | | | | | | [place], [place] | | | | | | | [address] | | | | | | | Phone: | | | | | | | [phone] | | | | | | | Fax: | | | | | | | [phone] | +--------+--------+ + + + + Encounter Details +--------+ + + + + | Date | Type | Department | Care Team | Description | +--------+ + + + + | 06/14/ | Diagnostic | Otolaryngology | Nidia Lee | HL - Hearing loss | | 2017 | Visit | Audiology Services | K, AuD [address] | | | | | at PPV [address] | [facility] | | | | | [facility] | [place], [place] | | | | | Mail[address]: [address] | [address] | | | | | Physician's Tee | | | | | | [place], [place] | | | | | | [address] | | | | | | [phone] | | | +--------+ + + + + Social History + +-------+ +--------+------+ | Tobacco Use | Types | Packs/Day | Years | Date | | | | | Used | | + +-------+ +--------+------+ | Never Smoker | | | | | + +-------+ +--------+------+ + +---+---+---+ | Smokeless Tobacco: | | | | | Never Used | | | | + +---+---+---+ + + +---------+ + | Alcohol Use | Drinks/We | oz/Week | Comments | | | ek | | | + + +---------+ + | No | 0 | 0.0 | | | | Standard | | | | | drinks or | | | | | | | | | | equivalen | | | | | t | | | + + +---------+ + + + + | Sex Assigned at | Date Recorded | | | | + + + | Not on file | | + + + as of this encounter Progress Notes Nidia Lee AuD - 06/14/2017 9:00 AM PSTFormatting of this note may be different f rom the original. [facility] Cochlear Implant Program Name: Domenica Gallagher : 1930 Date of Visit: 06/14/2017 Interval: Routine 3 month Participants: Rambo (Caregiver) CI: Left PERALTA: None Float Operator: Right90 Internal: CI522 Magnet Strength: 1X Adult Cochlear Implant Programming Summary Domenica Gallagher, 86 y.o., was seen by [facility] Audiology for follow up of her LEFT cochlear impl ant. Ms. Gallagher was implanted by Sachin Ng MD, on 06/11/2015. Her left cochlear implan t was initially activated on 06/25/2015. She was last seen for follow up on 03/29/2017. Today Ms. Gallagher and her caregiver reported that she is still having difficulty hearing in most situations but does better when she is anicipating or is facing the person speaking. Sh brenda is having difficulty with the phone per patient report, although Rambo stated that at pete es she hears most everything that is said on the phone and other times she struggles more. T here were no reported issues with equipment at the time of the encounter. During our discuss ion Ms. Gallagher asked if she should stop using the implant. When asked to elaborate she state d it has "caused more trouble" and she expressed frustration that the processor falls off he r ear frequently. She was counseled extensively that she is benefiting from the implant as e videnced by subjective report (from patient and caregiver) and speech perception scores, and that she would be at a detriment if she discontinued use. We discussed options to improve r etention including a snugfit which she was loaned at the time of the encounter. The magnet site was assessed and was healthy in appearance, and the magnet strength 1m cont inues to be appropriate. A listening check confirmed appropriate function of processor micro phones. She arrived wearing her processor on P1. Rambo indicates that she pushes buttons on the processor occasionally and she is concerned this may be affecting her hearing. Prior to programming, aided testing was completed in the soundfield in order to verify bene fit from Domenica's cochlear implant. Speech perception testing was completed via recorded stim christophe at 60 dB SPL in Program 1/[employer] 24 in the soundfield unless otherwise noted. The following responses were obtained: Aided Thresholds: [phone] 2000 3000 4000 6000 SRT CI - R 45 45 35 30 30 25 25 25 Aided Speech Perception Tests: List S/N % correct HINT CI- R 3/4 Quiet 65% AZ Bio CI- R 2 Quiet 34% CNC List S/N Word % correct Phoneme % correct CI- R 8a Quiet 20% 52% Ms. Gretchen's N6 processor was connected to the computer for programming. Impedances were WN L across the electrode array. Her current map 24 was opened and evaluated. The rate was redu melvina to 500 Hz and T and C levels were remeasured. Prior to activation of live voice levels w ere reduced globally. Live voice was activated in this new 500 Hz rate MAP (25) and T and C levels were adjusted for comfort. She stated the volume was comfortable and sound quality wa s good. Her old 720 Hz rate MAP 24 was activated for comparison and she stated he new progra m was slightly better but was unable to articulate whether this was related to comfort, clar ity, or sound quality. Settings were saved. The old preferred 720 Hz rate MAP 20 was kept in slot 2 as this was the program she was wearing when she achieved her highest speech percept ion scores. Telecoil and VC were disabled as Rambo expressed concerns that she is pressing buttons without her knowledge which may be interfering with her hearing. Her primary and marycarmen k up processors were save with the following settings: Map(s) Programmed: Program Location Map # Description P1 25 Home P2 20 Home P3 - - P4 - - Following programming the clinician's Snugfit was coupled to the patient's processor. She r eported improvement in retention and comfort on her ear. She practiced putting the processor on her ear several times during the encounter and was finally able to put it on her ear willie ropriately by the conclusion of the encounter. Encouraged her to practice and contact the cl inic if she has issues. She was instructed to return to using her back up processor with ear hook if she has issues with the Snugfit. Follow up was recommended in 3-6 months, sooner if concerns arise. It was a pleasure workin g with [place] again today. If there are any questions or comments regarding the re sults and recommendations of this evaluation, please do not hesitate to contact me at . Roxanne Wynne, DANIEA Clinical Numerologist Board Certified in Audiology [facility] Department of Otolaryngology Audiology Services [address], [address] [place] [address] in this encounter Plan of Treatment +--------+ + + + + | Date | Type | Specialty | Care Team | Description | +--------+ + + + + | 12/29/ | Diagnostic | Numerologist | Nidia Lee | | | 2018 | Visit | | K, AuD [address] | | | | | | [address] | | | | | | [place], [place] | | | | | | [address] | | +--------+ + + + + as of this encounter Procedures + +--------+ + + + | Procedure Name | Priori | Date/Time | Associated Diagnosis | Comments | | | ty | | | | + +--------+ + + + | [place] ARMANDOL AUD RHB STTS | Routin | 06/14/2017 | Sensorineural | | | | e | 2:12 PM | hearing loss, | | | | | PST | bilateral | | + +--------+ + + + in this encounter Visit Diagnoses + + | Diagnosis | + + | Sensorineural hearing loss, bilateral - Primary | + +
--- OUTSIDE RECORDS SUMMARY | 2017-09-10 17:54 | XMS | Clinical Summary ---
Demographics + + + | Address | [address] | | | [place] [address] | + + + | Home Phone | | + + + | Preferred Language | Unknown | + + + | Marital Status | Single | + + + | Mormon Affiliation | CAT | + + + | Race | White | + + + | Ethnic Group | Not or | + + + Author + + + | Author | [facility] | + + + | Organization | [facility] | + + + | Address | Unknown | + + + | Phone | Unavailable | + + + Support +------+ + + + +------- + | Name | Relationship | Address | Phone | +------+ + + + +------- + ECON | [address] | | #[place] | [address] | +------+ + + + +------- + ECON | Unknown | | +------+ + + + +------- + Care Team Providers + +------+ + | Care Bell Valet Name | Role | Phone | + +------+ + | Amilcar Jean MD | PP | | + +------+ + Source Comments TRIDA is fully live on both EpicCare Ambulatory and EpicCare InPatient.[facility] + + + + + + | Active Allergy | Reactions | Severity | Noted | Comments | | | | | Date | | + + + + + + | Ciprofloxacin | Unknown | | 03/26/20 | Critical | | | | | 15 | | + + + + + + | Codeine | Nausea and Vomiting | High | 05/25/20 | | | | | | 15 | | + + + + + + | Sulfa (Sulfonamide | Nausea and Vomiting | | 05/25/20 | | | Antibiotics) | | | 15 | | + + + + + + | Tramadol | Unknown | | 03/26/20 | GI upset | | | | | 15 | | + + + + + + Current Medications + + +-------+---------+------+------+-------+ | Prescription | Sig. | Disp. | Refills | Star | End | Statu | | | | | | t | Date | s | | | | | | Date | | | + + +-------+---------+------+------+-------+ | amLODIPine 5 mg | Take by mouth. | | | | | Activ | | oral tablet | | | | | | e | + + +-------+---------+------+------+-------+ | | Take by mouth. | | | | | Activ | | hydrochlorothiazide | | | | | | e | | 50 mg oral tablet | | | | | | | + + +-------+---------+------+------+-------+ | oxybutynin CR 10 | Take by mouth. | | | | | Activ | | mg oral tablet | | | | | | e | | extended release | | | | | | | | 24hr | | | | | | | + + +-------+---------+------+------+-------+ | levothyroxine 100 | Take by mouth. | | | | | Activ | | mcg oral tablet | | | | | | e | + + +-------+---------+------+------+-------+ | omeprazole 20 mg | Take 40 mg by mouth | | | | | Activ | | oral capsule,delayed | once daily in the | | | | | e | | release(DR/EC) | morning. Take 20 mg | | | | | | | | by mouth every day. | | | | | | + + +-------+---------+------+------+-------+ | DOXYCYCLINE | Take by mouth. | | | | | Activ | | HYCLATE ORAL | | | | | | e | + + +-------+---------+------+------+-------+ | pilocarpine 2 % | Instill 1 drop into | | | | | Activ | | ophthalmic drops | both eyes three | | | | | e | | | times daily. | | | | | | + + +-------+---------+------+------+-------+ | FOLIC | Take 1 tablet by | | | | | Activ | | ACID/MULTIVIT-MIN/LANI | mouth once daily. | | | | | e | | TEIN (CENTRUM SILVER | | | | | | | | ORAL) | | | | | | | + + +-------+---------+------+------+-------+ | Calcium | Take 1 tablet by | | | | | Activ | | Carbonate-Vit D3-Min | mouth once daily. | | | | | e | | 600 mg calcium- 400 | | | | | | | | unit oral tablet | | | | | | | + + +-------+---------+------+------+-------+ Active Problems + + + | Problem | Noted Date | + + + | SNHL (sensorineural hearing loss) | 06/25/2015 | + + + | Cochlear implant in place | 06/25/2015 | + + + Encounters +--------+ + + + + | Date | Type | Specialty | Care Team | Description | +--------+ + + + + | 06/14/ | Diagnostic | | Nidia Lee | HL - Hearing loss | | 2016 | Visit | | Latanya Miguel | | +--------+ + + + + from Last 3 Months Family History + +------+--------+ + | Relation | Name | Status | Comments | + +------+--------+ + Social History + +-------+ +--------+------+ | [...] on file | | + + + Last Filed Vital Signs + + + + | Vital Sign | Reading | Time Taken | + + + + | Blood Pressure | 131/63 | 06/11/2015 2:28 PM PST | + + + + | Pulse | 96 | 06/11/2015 2:28 PM PST | + + + + | Temperature | 36.7 C (98.1 F) | 06/11/2015 1:30 PM PST | + + + + | Respiratory Rate | 20 | 06/11/2015 2:28 PM PST | + + + + | Oxygen Saturation | 91% | 06/11/2015 2:28 PM PST | + + + + | Inhaled Oxygen | - | - | | Concentration | | | + + + + | Weight | 65.8 kg (145 lb) | 05/25/2015 10:50 AM PDT | + + + + | Height | 146.1 cm (4' 9.5") | 05/25/2015 10:50 AM PDT | + + + + | Body Mass Index | 30.83 | 05/25/2015 10:50 AM PDT | + + + + Plan of Treatment +--------+ + + + + | Date | Type | Specialty | Care Team | Description | +--------+ + + + + | 12/29/ | Diagnostic | | Nidia Lee | | | 2017 | Visit | | Lamont, Latanya [address] | | | | | | [address] | | | | | | [place], [place] | | | | | | [address] | | +--------+ + + + + + + + + + | Health Maintenance | Due Date | Last Done | Comments | + + + + + | INFLUENZA VACCINE | 09/01/201 | | | | (FLU SHOT) | 7 | | | + + + + + Implants + +------+--------+ +--------+--------+--------+ | Implanted | Type | Area | Manufacture | Device | Expira | Model | | | | | r | | tion | / | | | | | | Identi | Date | Serial | | | | | | fier | | / Lot | + +------+--------+ +--------+--------+--------+ | Cochlear Nucleus | | Left: | COCHLEAR | | 04/11/ | [id number] | | [id number]: Qty: 1 on | | Ear | RONA | | 2016 | /[id number] | | 06/11/2015 by Sachin Ng | | | | | | [id number] | | MD Kim | | | | | | 6 / | + +------+--------+ +--------+--------+--------+ Procedures + +--------+ + + + | Procedure Name | Priori | Date/Time | Associated Diagnosis | Comments | | | ty | | | | + +--------+ + + + | WI EVL AUD RHB STTS | Routin | 06/14/2017 | 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
--- OUTSIDE RECORDS SUMMARY | 2017-09-10 17:54 | XMS | Clinical Summary ---
Demographics + + + | Address | [address] | | | [place] [address] | + + + | Home Phone | | + + + | Preferred Language | Unknown | + + + | Marital Status | Single | + + + | Gnosticism Affiliation | CAT | + + + [address] | | #[place] | [address] | +------+ + + + +------- + ECON | Unknown | | +------+ + + + +------- + Care Team Providers + +------+ + | Care Sole Tacker Name | Role | Phone | + +------+ + | Amilcar Jean MD | PP | | + +------+ + Source Comments TRIDA is fully live on both EpicCare Ambulatory and EpicCare InPatient.[facility] Allergies + + + + + + [...] [address] | | | | | | [place], [place] | | | | | | [address] | | +--------+ + + + + [...] | | 04/11/ | [id number] | | [id number]: Qty: 1 on | | Ear | RONA | | 2016 | /[id number] | | 06/11/2015 by Sachin Ng | | | | | | [id number] | | MD Kim | | | | | | 6 / | + +------+--------+ +--------+--------+--------+ Procedures + +--------+ + + + | Procedure Name | Priori | Date/Time | Associated Diagnosis | Comments | | | ty | | | | + +--------+ + + + | [place] EVL AUD RHB STTS | Routin | 06/14/2017 | 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
--- OUTSIDE RECORDS SUMMARY | 2017-09-10 17:54 | XMS | Encounter Summary ---
Demographics + + + | Address | [address] | | | [place] [address] | + + + | Home Phone | | + + + | Preferred Language | Unknown | + + + | Marital Status | Single | + + + | Hinduism Affiliation | CAT | + + + | Race | White | + + + | Ethnic Group | Not or | + + + Author + + + | Author | [facility] | + + + | Organization | [facility] | + + + | Address | Unknown | + + + | Phone | Unavailable | + + + Support +------+ + + + +------- + | Name | Relationship | Address | Phone | +------+ + + + +------- + ECON | [address] | | #[place] | [address] | +------+ + + + +------- + ECON | Unknown | | +------+ + + + +------- + Care Team Providers + +------+ + | Care Internal Grinder Tender Name | Role | Phone | + [...] + + + | Closed | | Drilling Engineer | | Non-[facility] | Ent | | | | | | Epic Dept | Audiology [facility] | | | | | | | [address] | | | | | | | [address] | | | | | | | [facility] | | | | | | | Mailcode: | | | | | | | [id number] | | | | | | | Physician's | | | | | | | Tee | | | | | | | [place], [place] | | | | | | | [address] | | | | | | | Phone: | | | | | | | [phone] | | | | | | | Fax: | | | | | | | [phone] | +--------+--------+ + + + + Encounter [...] at [facility] [address] | [facility] | | | | | [facility] | [place], [place] | | | | | Mailcode: [id number] | [address] | | | | | Physician's Tee | | | | | | [place], [place] | | | | | | [address] | | | | | | [phone] | | | +--------+ + + + [...] may be different f rom the original. [facility] Cochlear Implant Program Name: Domenica Gallagher : 1930 Date of Visit: 06/14/2017 Interval: Routine 3 month Participants: Rambo (Caregiver) CI: Left PERALTA: None Lottery Clerk: PhysicianPortal Internal: [id number] Magnet Strength: 1X Adult Cochlear Implant Programming Summary Domenica Gallagher, 86 y.o., was seen by [facility] Audiology for follow up of her LEFT [...] christophe at 60 dB SPL in Program 1/[employer] 24 in the soundfield unless otherwise noted. The following responses were obtained: Aided Thresholds: [phone] 2000 3000 4000 6000 SRT CI - [...] me at . Roxanne Wynne, DANIEA Clinical Drilling Engineer Board Certified in Audiology [facility] Department of Otolaryngology Audiology Services [address], [address] [place] [address] in this encounter Plan of Treatment +--------+ + + + + | Date | Type | Specialty | Care Team | Description | +--------+ + + + + | 12/29/ | Diagnostic | Drilling Engineer | Nidia Lee | | | 2018 | Visit | | K, AuD [address] | | | | | | [address] | | | | | | [place], [place] | | | | | | [address] | | +--------+ + + + + as of this encounter Procedures + +--------+ + + + | Procedure Name | Priori | Date/Time | Associated Diagnosis | Comments | | | ty | | | | + +--------+ + + + | AK ARMANDOL AUD RHB STTS | Routin | [...]
[2017-09-10] MEDS ORDERED: MACRODANTIN100 MG PO (18:33)
== END 2017-09-10 18:53 | disposition home or self-care (01) ==
LOC: ED 17:03
PROC: 0T9B70Z Drainage of Bladder with Drainage Device, Via Natural or Artificial Opening (ICD-10-PCS; principal; 2017-09-10)
DX: N39.0 Urinary tract infection, site not specified (principal); M25.552 Pain in left hip; G89.29 Other chronic pain; I10 Essential (primary) hypertension; E03.9 Hypothyroidism, unspecified; Z88.2 Allergy status to sulfonamides; Z88.1 Allergy status to other antibiotic agents; Z88.5 Allergy status to narcotic agent; Z79.899 Other long term (current) drug therapy; Z79.82 Long term (current) use of aspirin
CPT/HCPCS: 51701; 81001; 87077; 87088; 87186; 99283

== ENCOUNTER 2017-12-01 08:50 | Inpatient (IN) | payer MEDICARE, OTHER ==
[~2017-12-01] VITALS: Ht 149.9 cm; Wt 54.8 kg
--- OUTSIDE RECORDS SUMMARY | ~2017-12-01 | XMS | Clinical Summary ---
Demographics + + + | Address | [address] | | | [place] [address] | + + + | Home Phone | | + + + | Preferred Language | Unknown | + + + | Marital Status | Single | + + + | Rastafari Affiliation | Unknown | + + + | Race | Unknown | + + + | Ethnic Group | Unknown | + + + Author + + + | Author | [facility] | | | and [place] | + + + | Organization | [facility] | | | and [...] Team Providers + +------+ + | Care Landing Signal Officer Name | Role | Phone | + [...] [address] | | | [phone] | [place] [phone] | + +--------+ +--------+ + +
--- OUTSIDE RECORDS SUMMARY | ~2017-12-01 | XMS | Clinical Summary ---
Demographics + + + | Address | [address] | | | [place] [address] | + + + | Home Phone | | + + + | Preferred Language | Unknown | + + + | Marital Status | Single | + + + | Denominational Affiliation | CAT | + + + [...] + | Lauri Gallagher | [place] | [address] | | | | | #[address] | | | | | [address] | | + + + + + | Buddy Wilson | ECON | Unknown | | + + + + + Care Team Providers + +------+ + | Care Jewelry Model Maker Name | Role | Phone | + +------+ + | Amilcar Jean MD | PP | | + +------+ + Source Comments JEREMY is fully live on both EpicCare Ambulatory and EpicCare InPatient.[facility]erg[facility] + + + + + [...] [address] | | | | | | [place] | | | | | | [address] | | +--------+ + + + + [...] | | 04/11/ | [id number] | | [id number]: Qty: 1 on | | Ear | RONA | | 2016 | /[id number] | | 06/11/2015 by Sachin Ng | | | | | | [id number] | | MD Kim | | | | | | 6 / | + +------+--------+ +--------+--------+--------+ Results Not on filefrom Last 3 Months
[~2017-12-01 08:50] MED LIST changes: +ALENDRONATE SOD70 MG PO; +MACRODANTIN100 MG PO; +OXYBUTYNIN CHLO15 MG PO
--- NOTE | 2017-12-01 11:21 | NUR ---
Incision site was covered for shower, appears to be healing well.
--- NOTE | 2017-12-01 11:23 | NUR ---
Student nurse and primary nurse assissted patient to ambulate to the restroom and completed a shower. Patient used walker and one person assist to ambulate around the room, patient then returned to bed and sequential compression devices were placed. Patient was resting with family member in the room when the Student Nurse and Primary Nurse exited.
--- NOTE | 2017-12-01 11:25 | NUR ---
SEE STUDENT NURSE NOTE.
--- NOTE | 2017-12-01 12:18 | NUR ---
Patient was ambulated to the restroom with one person assist, using a walker as an assisstive device. Lungs sounds equal and clear bilaterally, with a few fine crackles in the base of the lungs. Cardiac sounds are present and strong, rate and rythym is irregular. Neurovascular assessment appears well, skin is warm and dry to touch. Bowel tones are equal and present in all four quadrants. Patient was provided lunch and was sitting in chair when student nurse exited the room.
--- NOTE | 2017-12-01 12:22 | NUR ---
MED REC COMPLETE WHEN IN-PATIENT STATUS
--- NOTE | 2017-12-01 12:30 | NUR ---
PATIENT RESTING IN THE CHAIR EATING LUNCH. NO APPARENT DISTRESS NOTED. PATIENT DRESSING D/C/I. WILL CONTINUE TO MONITOR.
--- NOTE | 2017-12-01 12:57 | NUR ---
PET THERAPY DOG TK IN TO SEE PT. SHE IMMEDIATELY CHEERED UP! BIG SMILE, AND FOR A MOMENT IN TIME SHE FORGOT SHE WAS IN THE HOSPITAL. SEEMED TO ENJOY PETTING AND TALKING TO TK. DOG LEFT, SHE WAVED AND HER WHOLE COUNTENANCE WAS ENHANCED. WILL FOLLOW NEEDED 1
--- NOTE | 2017-12-01 15:35 | NUR ---
PATIENT RESTING IN BED AT THIS TIME AFTER WALKING WITH PHYSICAL THERAPIST. PATIENT WAS MEDICATED FOR LEFT HIP PAIN. DRESSING ON LEFT HIP D/C/I. NO APPARENT DISTRESS NOTED.
--- NOTE | 2017-12-01 18:59 | NUR ---
PATIENT HAD DONE WELL TODAY.HAD BEEN UP TO CHAIR MULTIPLE TIMES TODAY. WALKED WITH PT/OT/ST TODAY. PATIENT IS SWING BED NOW. DRESSING ON THE LEFT HIP D/C/I. REDNESS ON THE LEGS STILL PRESENT, NO OPEN WOUND. VOIDING WELL, ATE MOST OF THE HER MEAL.
--- NOTE | 2017-12-01 20:08 | NUR ---
PT CHANGED TO SWING BED TODAY. BEDSIDE REPORT RECIVED FROM DAY SHIFT NURSE. PT A/O IN BED. HEARING AID IN PLACE. PT IS SL IN RIGHT HAND. REPORTS NO PAIN AT THIS TIME. CALL LIGHT WITHIN REACH. PT USES CALL LIGHT APPROPRIATELY.
--- NOTE | 2017-12-01 22:00 | NUR ---
ASSESSMENT COMPLETED. PAIN WHEN AMBULATING. TOLERATING WELL. OPSITE ON LEFT HIP C/D/I. HEARING AID IN LEFT EAR. HEART SOUNDS REGULAR WITH NO ABNORMAL SOUNDS. LUNGS SOUND CLEAR AND DIM IN THE BASES. CAP REFILL IS <3. SKIN IS WARM. PAIN 5/10. SCHEDULE TORIDOL GIVEN. CALL LIGHT WITHIN REACH.
--- NOTE | 2017-12-02 00:10 | NUR ---
PT APPEARS TO BE SLEEPING. RESPIRAITONS EQUAL AND UNLABORED. CRYOCUFF IN PLACE. SCD'S ON HEEL PROTECTORS ON. CALL LIGHT WTIHIN REACH.
--- NOTE | 2017-12-02 00:31 | NUR ---
PT IS SLEEPING WITLL CHECK BACK ON LATER
--- NOTE | 2017-12-02 01:50 | NUR ---
PT APPEARS TO BE SLEEPING. RESPIRATIONS EQUAL AND UNLABORED. CALL LIGHT WTIHIN REACH.
--- NOTE | 2017-12-02 02:50 | NUR ---
PT UP TO BATHROOM. PT REPORTED 8/10 PAIN WHILE AMBULATING. PRN PAIN MEDICATION GIVEN. BACK TO BED. SCD'S IN PLACE, CRYOCUFF WATER CHANGED. HEEL PROTECTORS ON. CALL LIGHT WTIHIN REACH.
--- NOTE | 2017-12-02 02:56 | NUR ---
TOOK PT TO BR. REFILLED CRYO
--- NOTE | 2017-12-02 04:55 | NUR ---
SWING BED PT. DRESSING C/D/I ON LEFT HIP. PAIN CONTROLLED WITH 1/2 NORCO AND TORIDOL SCHEDULED. SBA WITH FWW. REG DIET. PT/ OT. SLEPT MOST THE NIGHT.
--- NOTE | 2017-12-02 07:19 | NUR ---
PT COMPLAINTS OF 7/10 PAIN DURING HAND OFF REPORT. SEE MAR FOR MEDICATION GIVEN. PT CALL LIGHT WITHIN REACH. BED RAILS UP.
--- NOTE | 2017-12-02 07:45 | NUR ---
1 PERSON ASSIST TO BATHROOM WITH FWW, PATIENT RESPONDED WELL, BUT REPORTS HIP IS STIFF AND SORE THIS AM. CLEAN ATTENDS AND GOWN CHANGES. FACE AND TEETH WASHED AT SINK. RN ERIKA ASSTISTED PATIENT INTO CHAIR FOR BREAKFAST, LEGS ELEVATED. DARNELL ARDON IN FOR LINED CHANGE. CALL LIGHT IN REACH
--- NOTE | 2017-12-02 07:50 | NUR ---
PATIENT APPEARS TO BE SLEEPING. ROOM TIDIED, CALL LIGHT IN REACH.
--- NOTE | 2017-12-02 09:30 | NUR ---
THIS RN TO BEDSIDE TO CHECK ON PT. PT CONTINUES TO REPORT 5/10 PAIN IN HER HIP. ADDITIONAL 1/2 TABLET OF NORCO GIVEN TO TITRATE UP TO FULL DOSE. PT UP IN CHAIR WATCHING TV. NO ADDITIONAL REQUESTS OR COMPLAINTS AT THIS TIME. CALL LIGHT WITHIN REACH.
--- NOTE | 2017-12-02 09:36 | NUR ---
PATIENT IN CHAIR, LEGS ELEVATED, VITALS AND I/OS DONE. PATIENT REPORTS TO DYLAN JAMES PAIN IS 5/10. CALL LIGHT IN REACH. CRYO ON HIP
--- NOTE | 2017-12-02 10:00 | NUR ---
THIS RN CALLED TO PACU FOR ASSISTANCE. REPORT GIVEN TO DYLAN REID WHO WILL ASSUME CARE OF PT.
--- NOTE | 2017-12-02 10:19 | NUR ---
THIS RN RETURNED FROM PACU. REPORT TAKEN FROM DYLAN REID. THIS RN WILL RE-ASSUME CARE OF PT.
--- NOTE | 2017-12-02 11:08 | NUR ---
THIS RN TO ROOM TO CHECK ON PT. PT REPORTING IMPOROVED PAIN NOW AT 4/. CRYO CUFF NOT IN PLACED. REPLACED BY THIS RN. NEW ICE ADDED. PT REPORTS NEEDING A SNACK. CRACKERS AND CHEESE PROVIDED PER REQUEST. PT ASSISTED TO PLACE LUNCH ORDER. PT STATES SHE HAS NO ADDITIONAL REQUESTS OR COMPLAINTS AT THIS TIME.
--- NOTE | 2017-12-02 12:25 | NUR ---
STANDBY ASSIST TO BR. WITH FWW. VISITOR IN ROOM. FRESH ATTENDS ON. BACK TO CHAIR FOR LUNCH, LEGS ELEVATED. CALL LIGHT ON LAP
--- NOTE | 2017-12-02 12:47 | NUR ---
THIS RN TO BEDSIDE TO CHECK ON PT. PT EATING LUNCH. NO REQUESTS OR COMPLAINTS. PT REPORTS 3/10 PAIN THAT "IS GETTING BETTER." CRYO CUFF IN PLACE. PT WATCHING TV. CALL LIGHT WITHIN REACH.
--- NOTE | 2017-12-02 13:00 | NUR ---
PATIENT UP IN CHAIR, RN ERIKA REPORTS PATIENT WAS FEELING NAUSEOUS WHILE EATING LUNCH. THIS KINESIOTHERAPIST TOOK LUNCH TRAY AWAY AND LEFT ICE CREAM CALL LIGHT IN REACH, NO OTHER NEEDS
--- NOTE | 2017-12-02 13:09 | NUR ---
PT CALL LIGHT ON. THIS RN TO ROOM. PT VOMITING. EMISIS BAG PROVIDED. PT VOMITS 200ML OF FOOD AND CLEAR SUBSTANCE. PT STATES "IT WAS THE POP, I WAS FEELING FINE UNTIL I DRANK THAT POP." MOUTH WASH PROVIDED. MD CALLED. ZOFRAN ORDER PLACED. ZOFRAN GIVEN ORDERED. PT NO LONGER VOMITING AND CONTINUES TO BLAME "POP" FOR HER NAUSEA. FOOD REMOVED. PT ENCOUARGED TO NOT EAT AT THIS TIME AND ALLOW HER STOMACH TO REST. WATER AT CHAIRSIDE. CALL LIGHT WITHIN REACH. PT WATCHING TV AND RUBBING STOMACH. WILL CONTINUE TO MONITOR. FRESH EMESIS BAG PROVIDED.
--- NOTE | 2017-12-02 13:44 | NUR ---
PATIENT REMAINS UP IN THE CHAIR, C/O 02/13 LEFT LEG PAIN, PATIENT GIVEN SCHEDULED TORADOL IV AT THIS TIME
--- NOTE | 2017-12-02 13:50 | NUR ---
THIS RN TO BEDSIDE TO CHECK ON PT. PT REPORTS NO NAUSEA BUT PAIN "THAT REALLY HURTS." CHARGE NURSE INFORMS THIS RN THAT SHE "JUST GAVE TORDOL." PT REQUESTS TO GO BACK TO BED. PT ASSISTED BACK TO BED. CRYO CUFF, SCD'S, AND HEEL PROTECTORS IN PLACE. PT REPORTS THAT SHE FEELS "COMFORTABLE." CALL LIGHT WITHIN REACH. BEDRAILS UP.
--- NOTE | 2017-12-02 14:29 | NUR ---
PATIETN RELAXING IN BED, VITALS AND I/O DONE. DIETARY IN ROOM. CALL LIGHT IN REACH
--- NOTE | 2017-12-02 15:22 | NUR ---
MEDICATION DUE. THIS RN TO BEDSIDE. PT CONTINUES TO REPORT 5/10 PAIN. SEE MAR FOR MEDICATION GIVEN. PT ASSISTED UP TO RESTROOM. DEPENDS WET, CHANGED. PT ASSISTED BACK TO BED. PT ASKS FOR CRYO CUFF TO BE OFF "FOR A LITTLE BIT. IT'S TOO COLD." CRYO CUFF LEFT OFF FOR NOW. BED RAILS UP. CALL LIGHT WITHIN REACH.
--- NOTE | 2017-12-02 16:35 | NUR ---
AFTERNOON ASSESSMENT DUE. THIS RN TO BEDSIDE. PT RESTING AND WATCHING TV. ASSESSMENT DONE. PT DRIFTS OFF TO SLEEP WHILE THIS RN IS CHARTING. RR = 16 BPM. CALL LIGHT WITHIN REACH.
--- NOTE | 2017-12-02 17:52 | NUR ---
PT SWING BED NOW FOR LEFT TOTAL HIP NEEDING TO REBUILD STRENGTH. 1 PERSON, FWW ASSIST. REGULAR DIET, VOMITING TODAY. PRN ZOFRAN GIVEN. PT TOLEARTING PO AT THIS TIME. DEPENDS IN PLACE FOR INCONTENANCE. R WRIST SL. PRN AND SCHEDULED PAIN MEDICATIONS. PHYSICAL THERAPY AND OT WORKING WITH PT TODAY. USES CALL LIGHT APPROPRIATLY.
--- NOTE | 2017-12-02 18:31 | NUR ---
STANDBY ASSIST FROM CHAIR TO BR AND BACK TO BED USING FWW. FACE AND HANDS WASHED AT SINK. CLEAN ATTENDS AND PAD ON. TEETH SOAKING AND MOUTH RINSED AT BEDSIDE. SCDS ON . FRESH ICE WATER. CRYO FILLED. CALL LIGHT IN REACH.
--- NOTE | 2017-12-02 19:15 | NUR ---
RECIEVED BIDSIDE REPORT FROM DAY SHIFT RN. PT IS ON BACK WITH HOB ELEVATED. SCD'S IN PLACE BILAT. CRYOCUFF ON PT LEFT HIP. HEEL PROTECTORS IN PLACE. PT PAIN 4/10 IN L HIP. PERSONAL ITEMS AT BEDSIDE. SL IN RIGHT HAND. SAFTEY CHECK DONE. GLASSESS AND LEFT HEARING AID IN PLACE. CALL LIGHT WITHIN REACH. REPORTS NO OTHER NEEDS AT THIS TIME.
--- NOTE | 2017-12-02 20:50 | NUR ---
PT REPORTED LATERAL CALF PAIN "STABBING HOT" SCEDULED TORIDOL GIVEN WITH NO RELEIF OF PAIN. PAIN INCREASED FROM 02/13 TO 8. ICE APPLIED TO AREA. PRN NORCO GIVEN. PT REPORTED PAIN WAS "CLIMBING" UP HER LEG TO HER THIGH. REFLEXES CHECKED WITH NO HYPEREXTENTION. DORSIFLEXION PRODUSED NO EXTRA PAIN IN THE CALF AREA. PT ALSO HAD INCREASED SWELLING IN LEFT FOOT THAT HAD NOT PREVIOUSLY BEEN THERE. DR OLIVARES NOTIFIED. NEW ORDER FOR CELEBREX 200MG PO BID.
--- NOTE | 2017-12-02 21:30 | NUR ---
REASSESSED PAIN. REPORTED 12/14. PT STATES "IT FEELS MUCH BETTER NOW" CALL LIGHT WITHIN REACH REPOTRS NO OTHER NEEDS AT THIS TIME.
--- NOTE | 2017-12-02 22:23 | NUR ---
Charge nurse rounding note:. Pt up to brp, voided, back to bed, 1pa and fww, tolerated well. received first dose of Celebrex
--- NOTE | 2017-12-03 | NUR ---
APPEARS TO BE SLEEPING. REPLACED SCD'S. RESPIRATIONS WNL. CALL LIGHT WITHIN REACH,
--- NOTE | 2017-12-03 01:58 | NUR ---
APPEARS TO BE SLEEPING. RESPIRATIONS EQUAL AND UNLABORED. CRYOCUFF IN [place], SCD'S ON, DRESSING C/D/I. HOB ELEVATED. CALL LIGHT WITHIN REACH.
--- NOTE | 2017-12-03 03:27 | NUR ---
HELPED REPOSITION PT IN BED. CALL LIGHT WITHIN REACH. REPORTS NO OTHER NEEDS AT THIS TIME.
--- NOTE | 2017-12-03 03:45 | NUR ---
REPORTED 03/16 PAIIN. 08/08 NORCO GIVEN. REPOSITIONED PT CALL LIGHT WITHIN REACH. REPORTS NO OTHER NEEDS AT THIS TIME
--- NOTE | 2017-12-03 05:57 | NUR ---
PT SLEPT THROUGHOUT THE NIGHT. 08/08 LOURDES GIVEN @ 1455. SBA W/ FWW. HEARING AID IN LEFT EAR. CELBREX ORDERED FOR PAIN. EDEMA IN LEFT FOOT. SL IN RH. NO N/V. REG DIET. CRYOCUFF. HEEL PROTECTORS. PLAN FOR PT/OT TREATMENT WHILE ON SWING. DR OLIVARES TO SEE PT TODAY.
--- NOTE | 2017-12-03 08:25 | NUR ---
patient needed to use the restroom, she was a little unsteady coming ouit, she had a bowel movement, I set her up into the chair with her cyro cuff and an ice pack on top of her left leg, she is complaining of pain in her leg i have let the nurse know.
--- NOTE | 2017-12-03 08:40 | NUR ---
PT AWAKE IN BED. COMPLAINING OF "BURNING ZINGING PAIN" FROM TOP OF KNEE DOWN THE OSMAN. DR. OLIVARES AWARE, PT TO HAVE HIP/KNEE XRAY THIS AM. PT RECIEIVING NORCO FOR PAIN. PT DENIES ANY OTHER CONCERNS. LEFT HIP DRESSING CDI, CRYO CUFF IN PLACE. PT ALERT AND ORIENTED. CALL LIGHT WITHIN REACH.
--- NOTE | 2017-12-03 09:17 | NUR ---
PT WHEELCHAIR TRANSFER TO IMAGING FOR X-RAY.
--- NOTE | 2017-12-03 09:45 | NUR ---
PT RETURNED FROM IMAGING. ASSISTED TO RECLINER. CRYOCUFF IN PLACE. DENIES NEEDS OR CONCERNS AT THIS TIME. CALL LIGHT WITHIN REACH.
--- NOTE | 2017-12-03 13:30 | NUR ---
PT REPORTING 7/10 LEFT LEG PAIN. MEDICATED WITH NORCO. SITTING IN RECLINER WATCHING TV. CALL LIGHT WITHIN REACH.
--- NOTE | 2017-12-03 14:00 | NUR ---
REFILLED PATIENTS CRYO AND HELPED TRANSFER PATIENT FROM HER CHAIR TO HER BED SHE IS CURRENTLY LAYING DOWN AND VISITING WITH A FRIEND
--- NOTE | 2017-12-03 15:24 | NUR ---
PT RESTING IN BED, EYES CLOSED, RESP EVEN AND UNLABORED.
--- NOTE | 2017-12-03 18:04 | NUR ---
PT 1PA WITH WALKER TO RESTROOM. AMB TO BED. WANTS TO "GO TO BED FOR THE NIGHT." CRYO CUFF IN PLACE. CALL LIGHT WITHIN REACH.
--- NOTE | 2017-12-03 20:48 | NUR ---
PT IN BED, WATCHING A COOKING SHOW. TELLS THIS NURSE, "ITS A KIDS COMPETITION". HAD REQUESTED A PAIN MEDICATION EARLIER FOR LEFT LEG PAIN, STATES PAIN IS IN OSMAN AREA, NOTED A RED AREA TOP OSMAN, JUST BELOW THE KNEE. SAYS PAIN IS ALONE THE BONE AREA, SAID THAT SHE HAD GOTTEN A NEW XRAY TODAY. MED WITH NORCO 5/325 FOR PAIN. NO OTHER NEEDS, CALL LIGHT WITHIN REACH.
--- NOTE | 2017-12-03 23:09 | NUR ---
In bed, [facility] hx of cochlear implant, hearing aid at bedside. Resting, eyes closed, no resp distress. cryocuff to left hip, scds, heel protectors inplace, good cms L leg.
--- NOTE | 2017-12-04 01:39 | NUR ---
resting, no c/o pain, cryocuff L hip area, call light at bedside, scds, heel protectors in place
--- NOTE | 2017-12-04 04:25 | NUR ---
Resting, no c/o pain, cll light at bedside, cryocuff in plce, left hip dressin gin place. heel protectors in place
--- NOTE | 2017-12-04 06:00 | NUR ---
PT CURRENTLY UP IN CHAIR, HAS SLEPT, WAS MEDICATED 1X FOR C/O L HIP PAIN WITH 1 NORCO, MED EFFECTIVE. UP TO BRP SEVERAL TIMES THIS SHIFT, VOIDS QS, HAD A SMALL SOFT BM, INCONTINENTOF URINE X1, SKIN CARE DONE AND CLEAN ATTENDS IN PLACE. PT SL INTACT, FLUSHES WELL. LEFT HIP W MEPILEX DRESSING IN PLACE CDI. REDNESS LEFT KNEE HEALING, R BELOW THE KNEE WOUND AREA , HEALING, DRY, RED COLORED. CRYOCUFF, TTED HOSE AND SCDS IN PLACE. PT COOPERATIVE WITH ASSESSMENT
--- NOTE | 2017-12-04 06:51 | NUR ---
PT UP IN CHAIR, COMPLAIN OF LEFT LOWER LEG PAIN, MED WITH PRN MED. CALL LIGHT WITHIN REACH, CRYOCUFF IN PLACE, LEGS ELEVATED.
--- NOTE | 2017-12-04 08:38 | NUR ---
PT IN CHAIR. CLEANED ROOM. SET UP FOR BRK. ORDERED TOAST. AM CARE.
--- NOTE | 2017-12-04 09:00 | NUR ---
PT SBA WITH WALKER TO RESTROOM. AMB BACK TO RECLINER. CRYO CUFF IN PLACE. PT ALERT AND ORIENTED. DRESSING COMING OFF SLIGHTLY, WILL CHANGE DRESSING. NO DRAINAGE NOTED. PT DENIES PAIN OR NAUSEA AT THIS TIME. ATE ALL OF BREAKFAST. CALL LIGHT WITHIN REACH.
--- NOTE | 2017-12-04 10:04 | NUR ---
NOTED THAT LET HIP DRESSING WAS STARTING TO COME OFF. REDRESSED WITH MEPILEX AND OPSITE. INCISION SITE WELL APPROXIMATED, NO REDNESS OR DRAINAGE NOTED. DC'D IV PER PROTOCOL. SITE WITHOUT REDNESS OR INFLAMMATION, CATH INTACT. PT RESTING IN BED AFTER WORKING WITH Brock MCCARTY ON. CALL LIGHT WITHIN REACH.
--- NOTE | 2017-12-04 10:19 | NUR ---
VITALS AND I AND O
--- NOTE | 2017-12-04 12:16 | NUR ---
PT SITTING IN RECLINER "RESTING HER EYES". DENIES PAIN OR OTHER CONCERNS AT THIS TIME. ATE ALL OF LUNCH, OANH WELL. CRYO CUFF ON. CALL LIGHT WITHIN REACH.
--- NOTE | 2017-12-04 12:49 | NUR ---
PATIENT SITTING UP IN BED AND APPEARS TO BE SLEEPING. CALL LIGHT WITHIN REACH. NO OTHER NEEDS AT THIS TIME.
--- NOTE | 2017-12-04 14:30 | NUR ---
PATIENT SITTING UP IN CHAIR. RN IN ROOM. ICE IN CRYO. FRESH ICE WATER. CALL LIGHT WITHIN REACH. NO OTHER NEEDS AT THIS TIME.
--- NOTE | 2017-12-04 15:20 | NUR ---
PT SITTING UP IN RECLINER WATCHING TV. DENIES NEEDS OR CONCERNS AT THIS TIME. CALL LIGHT WITHIN REACH.
--- NOTE | 2017-12-04 16:00 | NUR ---
PATIENT UP TO THE BATHROOM AND BACK TO BED WITH ONE PERSON ASSIST WITH FWW. PATIENT PASSED GAS. FRESH ICE IN CRYO. CALL BUTTON IN REACH. NO OTHER NEEDS AT THIS TIME.
--- NOTE | 2017-12-04 17:52 | NUR ---
PT AWAKE IN CHAIR. CLEANED ROOM. EMPTYED GARBAGE. FRESH ICE WATER FILL CRYO. VITALS AND I AND O
--- NOTE | 2017-12-04 18:15 | NUR ---
PT ATE ALL OF DINNER, OANH WELL. RESTING IN RECLINER. STATES "I WANNA GO TO BED PRETTY SOON." CALL LIGHT WITHIN REACH.
--- NOTE | 2017-12-04 19:15 | NUR ---
BEDSIDE REPORT RECEIVED FROM DYLAN SNEED. PT SLEEPING IN CHAIR AT THIS TIME, EYES CLOSED, BREATHING NON-LABORED, CRYO CUFF ON LEFT HIP. NO IV ACCESS. CALL LIGHT ON LAP.
--- NOTE | 2017-12-04 20:15 | NUR ---
CALL LIGHT ANSWERED, SBA WITH FWW TO RESTROOM FOR VOID. PT BACK TO BED, SCDS, HEEL PROTECTORS IN PLACE. PT C/O / PAIN IN LEFT HIP, PRN NORCO ADMINISTERED. CRYO CUFF ON LEFT HIP. CRACKERS PROVIDED REQUESTED. PT HAS CALL LIGHT IN REACH. DRESSING ON LEFT HIP IS CLEAN DRY AND INTACT W MEPILEX AND OP SITE.
--- NOTE | 2017-12-04 22:17 | NUR ---
CHECKED ON PT, PT APPEARS TO BE SLEEPING, EYES CLOSED, BREATHING NON-LABORED. CRYO CUFF, SCDS, HEEL PROTECTORS ON. CALL LIGHT IN REACH.
--- NOTE | 2017-12-05 00:30 | NUR ---
IN PT ROOM TO CHECK ON PT, PT APPEARS TO BE SLEEPING, OXYGEN OFF PT, REAPPLIED 1L VIA NC. PT AWAKENS TO VOICE. LUNGS CLEAR THROUGHOUT ALL LOBES. DRESSING CDI LEFT HIP. CRYO CUFF REFILLED BY DARNELL LOERA. CSM INTACT BUE, BLE. PT IS ALERT AND ORIENTED X 4. HEEL PROTECTORS, SCDS, CRYO CUFF IN PLACE. CALL LIGHT IN REACH, PT HAS NO REQUESTS AT THIS TIME, LIGHTS OFF IN ROOM.
--- NOTE | 2017-12-05 03:22 | NUR ---
CALL LIGHT ANSWERED, PRN NORCO ADMINISTERED FOR PT REPORTED 7/10 SHARP PAIN IN LEFT HIP AFTER AMBULATION TO RESTROOM. CALL LIGHT IN REACH, ICE IN CRYO CUFF ON LEFT HIP, SCDS AND HEEL PROTECTORS ON. PT REPOSITIONED WITH PILLOW WEDGED BETWEEN LEGS. NO ADDL REQUESTS.
--- NOTE | 2017-12-05 04:54 | NUR ---
PT USING CALL LIGHT APPROPRIATELY, A AND O X 4. CSM INTACT BUE, BLE, GENERALIZED EDEMA IN RIGHT LEG. DRESSING C/D/I ON LEFT HIP. PRN NORCO ADMINISTERED FOR PAIN X 2. NO IV ACCESS. SCDS, HEEL PROTECTORS ON THROUGHOUT SHIFT. SBA WITH FWW TO RESTROOM FOR VOIDS, BM THIS SHIFT.
--- NOTE | 2017-12-05 05:56 | NUR ---
PT IN RESTROOM FOR 200 ML VOID, SBA WITH SALES CORRESPONDENCE CLERK EVARISTO COX. PT RATES PAIN 3/10 WITH AMBULATION IN LEFT HIP. SALES CORRESPONDENCE CLERK IN ROOM WITH PT COMPLETING ORAL CARE.
--- NOTE | 2017-12-05 06:54 | NUR ---
PT UP IN CHAIR, CRYO CUFF REFILLED AT THIS TIME WITH ICE. PT HAS NO ADDL REQUESTS. CALL LIGHT IN REACH. WATCHING TV.
--- NOTE | 2017-12-05 07:18 | NUR ---
REPORT RECEIVED FROM DYLAN FINLEY. PT SITTING UP IN CHAIR. ASKED FOR PAIN PILL, TOLD WHEN NEXT ONE WAS DUE.
--- NOTE | 2017-12-05 08:18 | NUR ---
PATIENT ASSISTED TO RESTROOM BY DYLAN OCAMPO. PATIENT ASSISTED BACK TO CHAIR. 1 PERSON WITH FWW. PATIENT SITTING UP IN CHAIR. ICE IN CRYO. WARM WASHCLOTH FOR FACE. BLANKET FROM WARMER. ICE IN CRYO. FRESH ICE WATER. SCDs AND CRYO CUFF ON PATIENT. CALL LIGHT WITHIN REACH. NO OTHER NEEDS AT THIS TIME.
--- NOTE | 2017-12-05 08:52 | NUR ---
PATIENT WALKING WITH PTHERAPY.
--- NOTE | 2017-12-05 09:24 | NUR ---
PT SITTING UP IN CHAIR WITH CRYO ON LEFT HIP. AM MEDS ADMINISTERED. PT RATED PAIN 8/10. GIVEN 1 TAB OF NORCO. DRSG ON HIP IS CDI. DENIES CALF TENDERNESS. LUNGS CLEAR. SAID SHE WAS STARTING TO FEEL CONSTIPATED, SO ACCEPTED MIRALAX TODAY. ONLY ATE ABOUT 25% OF BREAKFAST, SAID SHE WAS NOT VERY HUNGRY. HAS ALREADY WORKED WITH PT X1 TODAY. CAREGIVER IN ROOM VISITING WITH PT AT THIS TIME. CALL LIGHT IN REACH. CURTAIN OPEN.
--- NOTE | 2017-12-05 10:40 | NUR ---
PT SITTING UP IN CHAIR VISITING WITH CAREGIVER. STAFF PHARMACIST HOSPITALLiss LEYVAIE IN TO TAKE VITALS.
--- NOTE | 2017-12-05 11:00 | NUR ---
PATIENT SITTING UP IN CHAIR. CAREGIVER IN ROOM. CALL LIGHT WITHIN REACH. NO OTHER NEEDS AT THIS TIME.
--- NOTE | 2017-12-05 11:30 | NUR ---
PT UP TO BATHROOM. 1P W/FWW. NEW ATTENDS IN PLACE. BACK TO CHAIR. SCD AND CRYO IN PLACE. CALL LIGHT ON LAP. DENIES OTHER NEEDS AT THIS TIME.
--- NOTE | 2017-12-05 13:22 | NUR ---
PT ASLEEP SITTING UP IN CHAIR. PT APPEARS COMFORTABLE.
--- NOTE | 2017-12-05 13:43 | NUR ---
PT UP WALKING WITH ROBSON FOR PHYSICAL THERAPY. DOING WELL. RATES PAIN 5/10.
--- NOTE | 2017-12-05 13:54 | NUR ---
PATIENT UP WITH PTHERAPY AMBULATING
--- NOTE | 2017-12-05 14:09 | NUR ---
PT ASKED FOR PAIN MEDICATION AFTER PHYS THERAPY FOR PAIN 03/16. NOT DUE FOR NORCO YET, ADMINISTERED SCHED. GABAPENTIN EARLY. PT RESTING IN CHAIR WATCHING TV.
--- NOTE | 2017-12-05 14:23 | NUR ---
PT SITTING IN CHAIR, HAVING TROUBLE GETTING HEARING AID IN LEFT EAR. WAS ABLE TO HAVE SUPERVISOR FACEPIECE LINE BARB ASSIST. PT STATED THAT SHE HAS PAIN IN HER LEFT LEG FROM SURGERY. SHE SAID RN IS AWARE, PT REQUESTED PRAYER, WILL FOLLOW NEEDED
--- NOTE | 2017-12-05 14:46 | NUR ---
CHW CASE MANAGEMENT NOTE HAD VISIT WITH PATIENT AND DISCUSSED IF IT WAS OK TO TALK WITH HER CAREGIVER ABOUT HER HEALTHCARE NEEDS. PATIENT HAS AGREED THAT IT WOULD BE OK TO DISCUSS HER HEALTHCARE INFORMATION WITH THE CAREGIVER. PATIENT HAS ALSO AGREED THAT IS IS OKAY FOR MYSELF TO FOLLOW UP WITH HER AFTER DISCHARGE TO MAKE SURE SHE IS SAFE AT HOME AND TO SEE IF SHE COULD USE ANY OTHER SERVICES.
--- NOTE | 2017-12-05 16:25 | NUR ---
PT GIVEN 1 TAB OF NORCO FOR PAIN 02/13. UP TO BATHROOM 1P W/FWW. BACK IN CHAIR WITH CRYO AND SCD'S IN PLACE. CRYO REFILLED. GOWN CHANGED BY DARNELL THAKUR. PT DENIES OTHER NEEDS AT THIS TIME. CALL LIGHT IN REACH.
--- NOTE | 2017-12-05 17:48 | NUR ---
I&O DONE. ICE IN CRYO. DENTURE CARE AND ORAL CARE DONE. GARBAGE EMPTIED.
--- NOTE | 2017-12-05 18:20 | NUR ---
PT TOLERATED DINNER WELL. VOIDING QS. SBA. DENIES DIZZINESS AND N/V. GIVEN 3MG MORPHINE FOR PAIN 03/16. DR MCKEON IN TO SEE PT.
--- NOTE | 2017-12-05 19:00 | NUR ---
BEDSIDE REPORT RECEIVED FROM DYLAN RAMIREZ AND SN GARIBAY. PT IN BED, WATCHING TV, SCDS, CRYO CUFF, HEEL PROTECTORS ON. PT HAS NO REQUESTS AT THIS TIME, CALL LIGHT NEXT TO PT.
--- NOTE | 2017-12-05 21:55 | NUR ---
PT ASSESSMENT COMPLETE. PT C/O 03/16 PAIN IN LEFT HIP, PRN NORCO ADMINISTERED. PT GIVEN CRACKERS TO EAT WITH ORAL PAIN MEDS. PT DENIES NAUSEA AT THIS TIME. ALERT AND ORIENTED X 4. MEPILEX CLEAN DRY AND INTACT WITH OP SITE. PT DENIES NUMBNESS/TINGLING, CSM INTACT BLE, BUE. LUNGS CLEAR THROUGHOUT ALL LOBES, HR REGULAR RHYTHM. BOWEL TONES ACTIVE X 4, ABDOMEN SOFT, NON-TENDER. PT DENIES TOILETING NEEDS. CRYO CUFF REFILLED AND ON LEFT HIP. HEEL PROTECTORS, SCDS ON. CALL LIGHT IN REACH, ICE WATER REFILLED.
--- NOTE | 2017-12-05 23:54 | NUR ---
CHECKED ON PT, PT APPEARS TO BE SLEEPING, EYES CLOSED, VISIBLE CHEST RISE, LIGHTS OFF IN ROOM, CRYO CUFF, SCDS, HEEL PROTECTORS IN PLACE.
--- NOTE | 2017-12-06 01:15 | NUR ---
CALL LIGHT ANSWERED, 1PA WITH FWW TO RESTROOM FOR 200 ML VOID, INCONTINENT IN ATTENDS, LINENS SATURATED, CHANGED. PT BACK IN BED, CHUX IN PLACE. SCDS, HEEL PROTECTORS, CRYO CUFF IN PLACE. PILLOW USED BETWEEN LEGS FOR COMFORT. CALL LIGHT IN REACH.
--- NOTE | 2017-12-06 04:00 | NUR ---
CALL LIGHT ANSWERED, SBA WITH FWW TO RESTROOM FOR VOID, BACK TO CHAIR. CRYO CUFF REFILLED. PT RATES PAIN 8-9/10 IN LEFT HIP, PRN NORCO ADMINISTERED. PT ASSISTED TO RESTROOM FOR BM AT THIS TIME. INSTRUCTED TO PULL CALL LIGHT WHEN FINISHED.
--- NOTE | 2017-12-06 06:05 | NUR ---
PT HAS DENIED NAUSEA THROUGHOUT SHIFT. RECEIVED PRN NORCO X 2 FOR PAIN IN LEFT HIP. DRESSING CDI, CSM INTACT. CRYO CUFF, SCDS, HEEL PROTECTORS ON THROUGHOUT SHIFT. NO IV ACCESS. PT USING CALL LIGHT APPROPRIATELY. ATTENDS IN PLACE, INCONTINENT OF URINE.
--- NOTE | 2017-12-06 07:26 | NUR ---
REPORT RECEIVED FROM DYLAN REES. PT SITTING UP IN CHAIR. HEARING AID IN PLACE. CRYO AND SCD'S IN PLACE. PT DENIES PAIN AT THIS TIME. CALL LIGHT IN REACH.
--- NOTE | 2017-12-06 07:47 | NUR ---
PT SITTING UP, REPOSITIONED IN CHAIR. CRYO IN PLACE. AM MEDS ADMINISTERED. RATED PAIN 8/10 AND SAID IT RADIATES DOWN HER LEG. DENIES CALF TENDERNESS. GIVEN WARM BLANKET FOR COMFORT. CALL LIGHT ON LAP.
--- NOTE | 2017-12-06 09:40 | NUR ---
PT APPEARS TO BE SLEEPING IN CHAIR.
--- NOTE | 2017-12-06 10:36 | NUR ---
PT RESTING WITH EYES CLOSED, MOUTH OPEN IN CHAIR. LEGS ELEVATED. CRYO AND SCD'S IN PLACE. APPEARS COMFORTABLE. RESPIRATIONS EVEN AND UNLABORED. CALL LIGHT ON LAP.
--- NOTE | 2017-12-06 10:50 | NUR ---
PATIENT SLEEPING IN CHAIR. THIS SENIOR SALES OPERATIONS MANAGER WOKE HER UP TO TAKE VITALS. RN NOTIFIED ABOUT LOW BP AND HEART RATE. PATIENTS CAREGIVER IN ROOM TO VISIT. FRESH ICE WATER GIVEN. ORAL CARE DONE. PATIENTS HANDS AND FACE WASHED. OT STATES THAT SHE WILL BE BACK THIS AFTERNOON TO ASSIST THE PATIENT WITH A SHOWER. PT IN THE ROOM AT THIS TIME TO AMBULATE WITH THE PATIENT.
--- NOTE | 2017-12-06 11:06 | NUR ---
PT GIVEN 1 TAB OF NORCO FOR PAIN 02/13. WORKING WITH PHYSICAL THERAPY IN ROOM. CAREGIVER AT BEDSIDE.
--- NOTE | 2017-12-06 11:49 | NUR ---
PT BACK TO CHAIR FROM BATHROOM. 1P W/FWW. IN CHAIR WITH LEGS ELEVATED. CRYO REFILLED. LUNCH ORDERED. DENIES OTHER NEEDS AT THIS TIME. CAREGIVER IN ROOM.
--- NOTE | 2017-12-06 13:36 | NUR ---
PATIENT SITTING UP IN CHAIR WATCHING TV AND EATING CHIPS. NO NEEDS AT THIS TIME. ICE IN CRYO.CALL BUTTON IN REACH.
--- NOTE | 2017-12-06 13:52 | NUR ---
PT IN SHOWER WITH OT.
--- NOTE | 2017-12-06 14:31 | NUR ---
PT SITTING IN CHAIR, APPEARED SHE WAS TRYING TO EAT LUNCH AND KIND OF FELL ASLEEP. SHE AWOKE, SMILED AND TOLD ME THIS WASN'T WHAT SHE MEANT TO ORDER, BUT WAS FULL. PT WAS SLUMPING DOWN IN CHAIR, APPEARED UNCOMFORTABLE. SAIS SHE WOULD LIKE TO SIT UP MORE. ADVISED DYLAN FLORES, SHE WILL SEEK HELP AND ATTEND TO PT. EXTENDED A BLESSING. WILL FOLLOW NEEDED
--- NOTE | 2017-12-06 15:30 | NUR ---
PT IN BED. GIVEN SCHEDULED NEURONTIN. SCD'S ON. PT DECLINED USE OF CRYO. GIVEN WARM BLANKET FOR COMFORT. CALL LIGHT IN REACH. DENIES OTHER NEEDS AT THIS TIME. WOULD LIKE TO REST.
--- NOTE | 2017-12-06 16:08 | NUR ---
PT RESTING IN BED. APPEARS COMFORTABLE.
--- NOTE | 2017-12-06 16:45 | NUR ---
PT UP WITH ROBSON FOR PHYSICAL THERAPY.
--- NOTE | 2017-12-06 17:13 | NUR ---
PT HAD UNEVENTFUL DAY. RECEIVED NORCO X1. GABAPENTIN SEEMS TO RELIEVE PAIN WELL. UP IN CHAIR MOST OF DAY. SMALL APPETITE TODAY. WORKED WITH PHYSICAL THERAPY X2 TODAY. CURRENTLY RESTING IN BED AND APPEARS COMFORTABLE.
--- NOTE | 2017-12-06 18:34 | NUR ---
PT ASSISTED TO BATHROOM AND THEN TO BED. CRYOCUFF, HEEL PROTECTORS AND SCDS IN PLACE. PT DENIES OTHER NEEDS.
--- NOTE | 2017-12-06 19:20 | NUR ---
BEDSIDE REPORT RECEIVED FROM DYLAN MURRELL. PT LYING IN BED, APPEARS TO BE SLEEPING EYES CLOSED. CRYO CUFF FULL WITH ICE. SCDS HEEL PROTECTORS ON. CALL LIGHT IN PT LAP.
--- NOTE | 2017-12-06 20:52 | NUR ---
CALL LIGHT ANSWERED, PT C/O 02/13 PAIN IN LEFT HIP. DRESSING CDI WITH MEPILEX, OP SITE. PRN NORCO ADMINISTERED, PT REPOSITIONED IN BED W DARNELL STRAUSS ASSIST. PILLOW WEDGED BETWEEN LEGS FOR COMFORT. LUNGS CLEAR THROUGHOUT ALL LOBES, PT DEMONSTRATED IS USE X 4 1000 ML BEST EFFORT. CSM INTACT BLE, BUE. BOWEL TONES ACTIVE X 4. CRYO CUFF WITH ICE ON LEFT HIP, SCDS, HEEL PROTECTORS ON. CALL LIGHT IN PT LAP, LIGHTS OFF IN ROOM.
--- NOTE | 2017-12-06 22:57 | NUR ---
CHECKED ON PT, VISIBLE CHEST RISE BILATERALLY, APPEARS TO BE SLEEPING, EYES CLOSED. CALL LIGHT IN PT LAP, SCDS, HEEL PROTECTORS ON.
--- NOTE | 2017-12-07 01:52 | NUR ---
CHECKED ON PT, PT APPEARS TO BE SLEEPING, EYES CLOSED BREATHING VISIBLE, EQUAL CHEST RISE BILATERALLY. CRYO CUFF ON LEFT HIP, SCDS ON.
--- NOTE | 2017-12-07 04:26 | NUR ---
CALL LIGHT ANSWERED SBA W FWW TO RESTROOM FOR VOID AND LARGE BM, SOME INCONTINENCE IN ATTENDS. ORAL CARE COMPLETE, DENTURES IN, HEARING AID ON. PT ASSISTED BACK TO BED, CRYO CUFF REFILLED AND ON LEFT HIP. SCDS HEEL PROTECTORS ON. PT C/O 02/13 PAIN IN LEFT HIP, PRN NORCO ADMINISTERED. CALL LIGHT IN REACH, PT GIVEN ICE WATER.
--- NOTE | 2017-12-07 04:31 | NUR ---
HELPED PT TO THE BATHROOM AND BACK TO BED WITH HER FWW. CHANGED HER ATTENDS. NEW ICE IN HER CRYO. FRESH WATER GIVEN. PT NEEDS NOTHING ELSE AT THIS TIME.
--- NOTE | 2017-12-07 05:16 | NUR ---
PT RECEIVING PRN NORCO X 2 FOR PAIN CONTROL. CRYO CUFF, SCDS, HEEL PROTECTORS IN PLACE LEFT HIP THROUGHOUT SHIFT. CSM INTACT. PT USING CALL LIGHT, SBA W FWW FOR VOIDS, LARGE BM THIS SHIFT, SOME INCONTINENCE IN ATTENDS. NO NAUSEA REPORTED.
--- NOTE | 2017-12-07 05:24 | NUR ---
CHECKED ON PT, APPEARS TO BE SLEEPING AT THIS TIME, EYES CLOSED, BREATHING NON-LABORED. CALL LIGHT IN PT LAP. LIGHTS OFF IN ROOM.
--- NOTE | 2017-12-07 07:20 | NUR ---
BEDSIDE HANDOFF REPORT RECEIVED FROM RAND CEMENTER RN. PT RESTING IN BED, SLEEPING, LEFT UNDISTURBED.
--- NOTE | 2017-12-07 08:30 | NUR ---
PATIENT IN BR DOING AM CARE WITH STUDENT RAMIREZ. LINENS CHANGED, CRYO FILLED. PATIENT BACK TO CHAIR STANDBY ASSIST USING FWW, BREAKFAST ORDERED, CRYO ON HIP. STUDENT WILL BE DOING AM VITALS. FRESH ICE WATER GIVEN. CALL LIGHT IN REACH. NO OHTER NEEDS
--- NOTE | 2017-12-07 09:45 | NUR ---
PT WITH NAUSEA AND EMESIS AFTER TAKING MORNING MEDICATIONS, GIVEN 4 MG SL ZOFRAN. VISUALIZED GABAPENTIN TABLET IN EMESIS, WILL GIVE REPLACEMENT DOSE ONCE PT IS FEELING LESS NAUSEATED. PT COMPLAINT OF PAIN 8/10 TO LEFT TOES, PAIN TO LEFT HIP 6/10. PT ON ROOM AIR, LUNG SOUNDS CLEAR. PT ORIENTED TO ALL BUT DATE. EDEMA TO LEFT LOWER LEG, PULSES PALPABLE, CMS INTACT. BOWEL TONES ACTIVE, MIRALAX HELD FOR SOFT BM OVERNIGHT. CRYOFCUFF IN PLACE. PT DENIES OTHER NEEDS AT THIS TIME.
--- NOTE | 2017-12-07 10:23 | NUR ---
Student nurse helped with assistance to the bathroom, and got her into the chair. We washed her dentures which she forgot to take out last night, cleaned her gums and put the clean dentures back in. We washed her face, let her apply lotion to her face and washed and combed her hair. The SIZE WORKER helped me by changing the sheets, making the bed and changing the ice in the ice machine.
--- NOTE | 2017-12-07 10:32 | NUR ---
Student nurse- she puked about 500 ml. It was light yellow/clear. She puked right after she took her medications, and ended up puking her gabapentin. Her friend thinks it might be beneficial to eat food while she is taking her pills.
--- NOTE | 2017-12-07 10:35 | NUR ---
Student Nurse- Patient is experiencing some left leg, left foot pain. It is sore to the touch and has edema throughout. Her incision site is covered with a bandage and has no fluid draining, and no redness noted. She has ice going on her left hip. I had her cough and this resolved the respiratory wheezing I had noted in the upper back quadrants before. Her pain is at a 6 and is due for her [place], which she would like to take with food.
--- NOTE | 2017-12-07 11:01 | NUR ---
Student nurse- Checked on patient to give her the gabapentin she threw up from earlier. Said she was at a 6 in pain. Her friend in the room said she seemed to be overly sedated or too medicated. I talked with my instructor who said maybe we should hold off on the pain med to see if the gabapentin helps with the pain. I discussed this with the patient and she agreed to hold off on the [place] to see if the gabapentin helped. She took the medication this time with a little bit of vanilla pudding and did not get sick. She started crying after I gave her the medication and stated she just felt funny. Her friend comforted her and I told her we would do everything we could to help her feel better. I told her to let me know if her pain got worse and we could give her the [place].
--- NOTE | 2017-12-07 11:31 | NUR ---
PT SITTING IN CHAIR, CAREGIVER AT BEDSIDE. PT DENIES NEEDS AT THIS TIME.
--- NOTE | 2017-12-07 11:45 | NUR ---
Student Nurse- After feeling concerned about the patient "feeling funny" and getting increasingly confused, I printed off a CAM ICU assessment tool. I went back into her room to find that sitting in the chair with her legs up in the recliner had fixed the pain, edema in her left leg and foot. I started the CAM assessment and noticed she could not hear me, nor understand me asking questions such as "does a stone float on water?". Her friend in the room was worried and said "she is just not understanding you at all". The patient asked if she could read the question. After letting her read the question about the stone she said "well of course not!"she read the rest of the questions and answered them all without any errors. I moved on to the next portion and asked her to squeeze my hand everytime she heard me say the letter A. I read S A V E A H E A R T, and she didnt squeeze my hand once. I immediately got the idea ther her hearing aide just must not be working correctly today. 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 I put the new battery in and she instantly was smiling and felt so much better. She breezed through the rest of the test with ease. I spoke loudly into her left ear and we had no problems. She passed the CAM assessment and was alert and oriented to person, place, time and event. I left the room once I got her situated with lunch. She was smiling and eating a grilled cheese. She appears to be feeling somewhat normal again and states her pain is still at a 6, and would like to hold off on the norco. Her friend stated the the patient told her yesterday, PT made her walk to far, but that she did it anyways. The friend said she would stay until 1 to help with physical therapy.
--- NOTE | 2017-12-07 13:43 | NUR ---
PT ASSISTED TO BATHROOM AND BACK TO BED. PT RATING PAIN 6-8/10 WITH ACTIVITY, DISCUSSED PAIN MANAGEMENT, PT GIVEN 1 TAB NORCO. PT VOIDING QS. PT DENIES OTHER NEEDS AT THIS TIME.
--- NOTE | 2017-12-07 15:00 | NUR ---
PATIENT AMBULATING HALLS WITH ROBSON IN P/T
--- NOTE | 2017-12-07 15:45 | NUR ---
PT RECEIVED DOUBLE DOSE OF GAPAPENTIN IN ERROR. PT NOTIFIED AND ASSESSED. MD NOTIFIED OF ERROR, NO NEW ORDERS. WILL CONTINUE TO MONITOR PT CLOSELY FOR ADVERSE REACTION.
--- NOTE | 2017-12-07 16:14 | NUR ---
PATIENT SITTING UP IN CHAIR. EYES CLOSED. CRYO FILLED. FRESH ICE WATER GIVEN
--- NOTE | 2017-12-07 16:30 | NUR ---
VSS. PT RESTING IN CHAIR. PT DENIES NEEDS AT THIS TIME.
--- NOTE | 2017-12-07 17:30 | NUR ---
PT SITTING IN CHAIR. PT DROWSY, AROUSABLE TO VOICE. ALERT/ORIENTED. PT DENIES NEEDS AT THIS TIME. WILL CONTINUE TO MONITOR.
--- NOTE | 2017-12-07 18:16 | NUR ---
PT ALERT/ORIENTED TO ALL BUT DATE. PT ON ROOM AIR. PT UP WITH 1PA WITH FWW, WORKED WITH PHYSICAL THERAPY, PROGRESSING. PAIN CONTROLLED WITH PRN NORCO. PT NAUSEATED THIS AM AFTER MORNING MEDICATIONS, GIVEN PRN ZOFRAN, TOLERATING REGULAR DIET. CRYOCUFF AND SCDS. VOIDING QS.
--- NOTE | 2017-12-07 18:39 | NUR ---
PATIENT SITTING UP IN CHAIR, EYES CLOSED. VITALS AND I/OS DONE. CRYO REFILLED. DENTURES OUT AND SOAKING. [place] GIVEN FOR FACE AND HANDS. WARM BLANKET GIVEN. CALL LIGHT IN REACH
--- NOTE | 2017-12-07 19:15 | NUR ---
SHIFT REPORT RECEIVED. PATIENT RESTING IN RECLINER SLEEPING SOUNDLY. WAKES EASILY TO TOUCH. SHE DENIES ANY NEEDS AT THIS TIME. IS ORIENTED TO ALL EXCEPT THE DATE. CALL LIGHT IN REACH.
--- NOTE | 2017-12-07 21:14 | NUR ---
CHARGE NURSE ROUNDING NOTE:, PT UP IN CHAIR, CRYOCUFF LEFT HIP, SCDS IN PLACE, PT RESTING, EYES CLOSED, NO RESP DISTRESS. CALL LIGHT AT BEDSIDE. AWAKENS EASILY, DENIES NEED FOR PAIN MED, NO REQUESTS
--- NOTE | 2017-12-07 22:00 | NUR ---
EVENING MEDS GIVEN. PATIENT RECEIVED EXTRA DOSE OF NEURONTIN DURING DAYSHIFT, EVENING DOSE HELD. PATIENT HAS BEEN SLEEPING AND FREQUENTLY DROWSY. SHE APPEARS TO BE PAINFUL WITH MOVEMENT AND HER LEFT LEG APPEARS STIFF. SHE DENIES PRN PAIN MEDS. ASSISTED HER UP TO THE BATHROOM. 1PA W/FWW. SLOW MOVING BUT TOLERATES WELL. DRESSING ON LEFT HIP IS C/D/I. CRYO HAS BEEN IN PLACE, FILLED WITH ICE. LUNGS ARE CLEAR. TOLERATING ROOM AIR. ABD SOFT AND BOWEL SOUNDS ACTIVE. BRUISE NOTED IN MIDDLE OF PATIENT'S BACK, ABOUT THE SIZE OF MY PALM AND NOT PAINFUL. RED SCAB OR WELT NOTED ON SKIN AROUND RIGHT CALF WELL. THIS JOSEF IS A THIN LINE AROUND THE LOWER PART OF THE LEG. UNKNOWN SOURCE, PATIENT DENIES PAIN. DOES NOT APPEAR TO BE THE SAME AREA WHERE SCDS END. WILL CONTINUE TO MONITOR. PATIENT BACK IN BED. DENIES ANY NEEDS. CRYO IN PLACE. SCDS & HEEL PROTECTORS.
--- NOTE | 2017-12-08 | NUR ---
PATIENT APPEARS TO BE SLEEPING SOUNDLY. RR 16. CALL LIGHT IN REACH.
--- NOTE | 2017-12-08 00:54 | NUR ---
HELPED PT TO THE BATHROOM AND BACK TO BED WITH HER FWW. CHANGED HER ATTEND INCONTINENT OF URINE. FILLED HER CRYO WITH ICE. PER HER REQUEST I GOT HER A WARM BLANKET. SHE ASKED FOR A PAIN PILL. I INFORMED HER RN MAGDALENA.
--- NOTE | 2017-12-08 00:55 | NUR ---
medicated with 1 norco c/p 12/14 left hip pain
--- NOTE | 2017-12-08 02:51 | NUR ---
PATIENT REQUESTED PRN NORCO. REPORTS PAIN 10/10. SHE IS RESTING IN BED WATCHING TV EATING HER SNACKS. SHE QUESTIONS THE TIME ALL HER PRN MEDS ARE DUE AND REQUEST THEY BE GIVEN THEY ARE AVAILABLE. SHE DENIES ANY NAUSEA AT THIS TIME. STATES SHE IS JUST HAVING THE ABD CRAMPING. SHE APPOLOGIZED FOR HER HARSH WORDS WITH DINING ROOM ATTENDANT CAFETERIA MERVAT, STATING "I DON'T WANT TO BE MAD AT YOU GUYS CAUSE I KNOW ITS NOT YOUR FAULT. I JUST WANT THE PAIN TO STOP." I DISCUSSED NONPHARMACOLOGIC METHODS OF PAIN RELIEF. PATIENT STATES "NOTHING ELSE WORKS". ENCOURAGED PATIENT TO TRY AND REST.
--- NOTE | 2017-12-08 05:15 | NUR ---
PATIENT UP TO BATHROOM WITH CHIEF RADIOLOGIC TECHNOLOGIST. SHE REQUEST PRN NORCO WHICH WAS PROVIDED TO HER. SHE IS RESTING IN BED WITH CRYO IN PLACE.
--- NOTE | 2017-12-08 05:31 | NUR ---
HELPED PT TO THE BATHROOM AND BACK TO THE CHAIR.I STOOD BY HER SHE BRUSHED AND PUT HER TEETH IN, WASHED HER FACE. HAD TO HELP HER BACK TO THE TOILET TO PEE AGAIN WITH HER FWW. PUT HER CRYO BACK ON. BEDSIDE TABLE AND CALL LIGHT WITHIN REACH.
--- NOTE | 2017-12-08 05:58 | NUR ---
PATIENT SLEPT WELL DURING THE NIGHT. PAIN MOSTLY WITH AMBULATION. 1PA W/FWW. PATIENT CALLS APPROPRIATELY. INCONTINENT AT TIMES. CRYO TO LEFT HIP. DRESSING C/D/I. SCDS AND HEEL PROTECTORS IN USE. VS WNL.
--- NOTE | 2017-12-08 08:14 | NUR ---
patient up in chair this morning. cryo in place. assessment complete. mepilex c/d/i. patient requesting tea. cryo filled by student. linens changed by student. awaiting breakfast at this time.
--- NOTE | 2017-12-08 08:15 | NUR ---
patient assisted to the br with a one assist and fww.
--- NOTE | 2017-12-08 08:54 | NUR ---
STUDENT NURSE- REPORT WAS RECIEVED THIS AM BY NIGHT NURSE MAGDALENA. PATIENT WAS CHECKED ON AND DOING OKAY. A PLAN WAS MADE FOR THE DAY AND A SCHEDULE WAS SET UP TO FOLLOW. PATIENTS ICE MACHINE WAS FILLED, PATIENTS WATER WAS FILLED WITH NEW ICE AND WATER WELL. PATIENT REQUESTED GREEN TEA WITH SUGAR AND RECIEVED IT SOON AFTER. PATIENTS SHEETS WERE CHANGED AND BED WAS MADE. VITALS WERE DONE WELL A HEAD TO TOE. PATIENT WALKED TO THE BATHROOM WITH WALKER AND 1 PERSON ASSIST. PATIENT URINATED 100 ML AND X1 IN ATTENDS. PATIENT REPORTS HER LEG HURTING WORSE THAN HER HIP, 03/16. PATIENT ATE BREAKFAST AND TOOK HER MORNING MEDICATIONS. MIRALAX WAS GIVEN IN HER OJ, MELOXICAM, GABAPENTIN, PROTONIX, AND XARELTO WERE GIVEN BETWEEN BITES OF BREAKFAST TO HELP PREVENT NAUSEA.PATIENT WOULD LIKE TO HAVE HER CAREGIVER BRING A NEW PAIR OF PAJAMA PANTS TODAY. PATIENTS REPORTS NO NAUSEA AT THIS TIME. PATIENT IS COMFORTABLE IN CHAIR, SKID SOCKS ON, BLANKET ON AND WATCHING TV. PATIENT REPORTS NO FURTHER NEEDS AT THIS TIME.
--- NOTE | 2017-12-08 09:37 | NUR ---
ot in room at this time.
--- NOTE | 2017-12-08 10:31 | NUR ---
STUDENT NURSE- PATIENT WAS UP AND WORKING WITH PT AT 10:00 PATIENT URINATED 100 ML AND HAD A 1 PERSON ASSIST AND USED A WALKER TO GET BACK TO THE CHAIR. PT GAVE HER A SHALL THAT SHE IS WEARING IN CURRENTLY. PATIENT REPORTS BEING TIRED AND WANTING TO TAKE A NAP BEFORE LUNCH. PATIENT IS ALERT AND ORIENTED AND HAD HER HEARING AIDE BATTERY CHANGED EARLIER THIS MORNING. PATIENT REPORTS WANTING TO HAVE SCDS PUT BACK ON IN HOPES THAT IT WOULD HELP HER LEG PAIN. IT WAS EXPLAINED TO HER THAT SHE NO LONGER HAS ORDERS FOR SCDS DUE TO THE FACT THAT SHE IS ABLE TO GET UP AND MOVING NOW. PATIENT WOULD LIKE TO WEAR HER OWN PJ PANTS BUT IS UNABLE TO DUE TO THE FACT THAT SHE WET THEM YESTERDAY. PATIENT REQUESTED THAT HER CAREGIVER BE CALLED TO BRING UP NEW PANTS. THE CAREGIVER WAS CALLED AND A MESSAGE WAS LEFT ON HER PHONE. THE PATIENTS NEICE CALLED AND TALKED FOR A SECOND, SHE WAS ALSO ASKED TO BRING UP MORE PJ PANTS. PATIENT REPORTS MINIMAL PAIN AT THIS TIME, 5/10. A FOCUSED ASSESSMENT WAS DONE AND NO NEW CHANGES HAVE BEEN NOTED. PATIENT HAS REDUCED EDEMA IN HER LEFT LEG. THE LEG IS SEMI COOL TO THE TOUCH WITH NO BLUE TINTING NOTED. PATIENT ATE 50% OF HER BREAKFAST AND HAD CAFETERIA COME UP AND TAKE HER LUNCH ORDER. PATIENT IS IN A GOOD MOOD, SMILING, LAUGHING AND IN GOOD SPIRITS. NO OTHER NEEDS NOTED AT THIS TIME.
--- NOTE | 2017-12-08 10:49 | NUR ---
STUDENT NURSE- PAIN/FEVER REASSMENT DONE BY STUDENT NURSE FOR LOURDES AND MANNIE. PAIN IS A 5/10 DOWN FROM AN 8/10. NO FEVER NOTED, TEMPERATURE IS 98.1. PATIENT IS WORKING WITH PT RIGHT NOW. NO NEEDS NOTED
--- NOTE | 2017-12-08 11:25 | NUR ---
PATIENTS CAREGIVER BROUGHT A NEW SET OF PAJAMAS TO HER. PATIENT NOW HAS FULL SET OF PAJAMAS ON WITH A HOUSE COAT. PATIENT HAS NEW ICE WATER AT BEDSIDE AND MORE GREEN TEA WITH SUGAR. PATIENT DID HAVE SLIGHT EDEMA IN HER LEFT LEG AFTER WORKING WITH PT. THIS USUALLY RESOLVES BY THE PATIENT KEEPING THEIR LEGS UP IN THE RECLINER. PATIENT STATES SHE IS COMFORTABLE, SITTING IN THE CHAIR, RECLINED WITH A WARM BLANKET ON. THE CYRO WAS REFILLED WITH NEW ICE WATER. PATIENT REPORTS NO FURTHER NEEDS AT THIS TIME.
--- NOTE | 2017-12-08 12:33 | NUR ---
ANSWERED PATIENT CALL LIGHT. HELPED HER TO THE BATHROOM. CRYO IS FINE. NOW SHE IS BACK SITTING IN HER CHAIR.
--- NOTE | 2017-12-08 13:12 | NUR ---
PATIENT SITTING UP IN CHAIR. TOLERATED 50 PERCENT OF LUNCH. PATIENT STATING PAIN OKAY AT THIS TIME. WILL CONTINUE TO MONITOR. NO OTHER NEEDS AT THIS TIME. WILL CONTIUE TO MONITOR. PATIENT SITTING IN CHAIR WITH MULTIBLE PILLOWS FOR CUSHION.
--- NOTE | 2017-12-08 13:57 | NUR ---
CONNECTED WITH PT SHE WALKED WITH P.T.HE WAS SMILING AND SEEMED TO BE EXCITED TO BE UP! ENCOURAGED HER, WILL CONTINUE TO FOLLOW
--- NOTE | 2017-12-08 14:35 | NUR ---
NORCO 1 TAB GIVEN FOR ANTICIPATION WITH WORKIGN WITH PT AT 1500. PATIENT STATING PAIN ON AND OFF IN L CALF.NOT WARM TO TOUCH. NO MARKING ON CALF. PATINET REQUESTING PRUNE JUICE DUE TO NOT HAVING A BM TODAY.
--- NOTE | 2017-12-08 16:41 | NUR ---
PAITNET RESTING IN BED AFTER WORKING WITH PT. PT DID COMPRESSION TAPE TO L CALF. PATIENT REQUESTING ICE FOR LEG. CRYO PLACED ON L HIP
--- NOTE | 2017-12-08 17:14 | NUR ---
PATIENT SET UP FOR DINNER. TOLERATING FOOD WELL. PATIENT STATING SHE IS COMFORTABLE IN BED. NO OTHER NEEDS AT THIS TIME. PETEY DID SAY THAT WHEN SHE WAS WORKING WITH PT SHE DID GET A" LITTLE DIZZY". PATIENT STATING IT IS RESOLOVED NOW.
--- NOTE | 2017-12-08 17:18 | NUR ---
PATIENT DID WELL TODAY. WORKING WITH PT X 2 TODAY. PHYSICAL THERAPY GOING TO SUGGEST [employer] SOCKS TO ASSIST WITH HEEL DROP AND WC FOR DISCHARGE BACK TO [facility]. PATIENT TOLERATING FOOD WELL. GAVE PRUNE JUICE FOR NOT HAVING A BM TODAY. MIRALEX GIVEN. NORCO GIVEN X 2. PT DID C/O OF SOME MILD DIZZINESS WHEN AMBULATING WITH PT. ONCE SHE SAT FOR A WHILE THE DIZZINESS WENT AWAY. PATIENT HAS SCAB ON R CALF, ABRASION ON L KNEE, PT KENESIS TAPE TO L CALF, AND BRUISE ON R MID BACK. CRYO TO L HIP.
--- NOTE | 2017-12-08 18:50 | NUR ---
WHEN I WENT IN TO CHECK ON HER SHE WAS SLEEPING.
--- NOTE | 2017-12-08 19:10 | NUR ---
RECIEVED REPORT FROM DAY SHIFT NURSE. PT IN BED A/O. REPORTS NO PAIN AT THSI TIME. CALL LIGHT WITHIN REACH. DRESSING C/D/I. NO IV.
--- NOTE | 2017-12-08 22:20 | NUR ---
ASSESSMENT COMPLETED. CRYOCUFF ICE REFRESHED. PT REPORTS PAIN OF 8/10 IN LEFT LEG. 1 TAB NORCO GIVEN. PT IN BED WITH CRYO IN PLACE, DRESSING ON LEFT HIP C/D/I. HEARING AIDE BATTERY CHANGED. LUNGS ARE DIM. HEART SOUNDS IRREGULAR. HEART RATE WNL. BOWEL TONES ARE ACTIVE. WOUND ON RIGHT CALF APPEARS TO BE HEALING FROM LAST WEEKS ASSESSMENT. SCD'S DC'D. PULSES +2. ALL EXTREMITIES. BRUISE NOTED IN UPPER RIGHT BACK. CALL LIGHT WITHIN REACH.
--- NOTE | 2017-12-09 00:21 | NUR ---
PT IS IN BED, EYES CLOSED, RESPIRATIONS EQUAL AND NONLABORED. CALL LIGHT WITHIN REACH.
--- NOTE | 2017-12-09 02:10 | NUR ---
PT REPORTED PAIN IN LEFT LOWER LEF. APPLIED HEAT PACK. CALL LIGHT WITHIN REACH.
--- NOTE | 2017-12-09 04:00 | NUR ---
PT APPEARS TO BE SLEEPING, CRYOCUFF IN PLACE. HEAT PACK ON LLE FOR PAIN. RESPIRATIONS EQUAL AND NONLABORED. CALL LIGHT WITHIN REACH.
--- NOTE | 2017-12-09 05:22 | NUR ---
PT SLEPT THROUGHOUT THE NIGHT. PAIN IN LOWER LEFT LEG. PRN NORCO Q6. HERE FOR PT/OT. HEARING AIDE IN LEFT EAR. REGULAR DIET. HEAT PACK APPLIED TO LOWER LEG ICE TO HIP. SWING BED HERE FOR PT/OT FOR APROX 10 DAYS. SCD'S DC'D. NO IV. SBA FWW.
--- NOTE | 2017-12-09 06:12 | NUR ---
HELPED PT GET TO THE BATHROOM WITH HER FWW. HELPED HER GET TO HER CHAIR. BEDSIDE TABLE AND CALL LIGHT WITHIN REACH. FRESH WATER GIVEN.
--- NOTE | 2017-12-09 08:47 | NUR ---
PATIENT SITTING UP IN CHAIR. WASHCLOTH FOR FACE. CALL LIGHT WITHIN REACH. NO OTHER NEEDS AT THIS TIME.
--- NOTE | 2017-12-09 09:35 | NUR ---
PATIENT SITTING UP AND ATE BREAKFAST, PATIENT WAS HAVING 8/10 PAIN AT THIS TIME AND AHVING NAUSEA. 4GM SL ZOFRAN GIVEN AND MEDICATED FOR PAIN. PT WILL BE WORKING WITH PATIENT SOON IF NAUSEA IS RESOLVED. PATIENT SAYS SHE FEELS LIKE SOMETHING SHE ATE DISAGREED WITH HER.
--- NOTE | 2017-12-09 11:16 | NUR ---
PATIENT AMBULATED WITH THERAPY. PATIENT SITTING UP IN CHAIR NOW. CALL LIGHT WITHIN REACH. FRESH ICE WATER. ICE IN CRYO. NO OTHER NEEDS AT THIS TIME.
--- NOTE | 2017-12-09 11:23 | NUR ---
PATIENT'S NAUSEA IS GONE.SHE DID GREAT WITH PHYSICAL TODAY. PATIENT BACK IN HER ROOM SITTING UP IN THE CHAIR.
--- NOTE | 2017-12-09 12:16 | NUR ---
PATIENT UP IN BEDSIDE RECLINER EATING LUNCH. PATIENT DENIES HAVING ANYMORE NAUSEA AT THIS TIME.
--- NOTE | 2017-12-09 13:53 | NUR ---
CALLED AND LEFT A MESSAGE FOR THAT PATIENT IS HAVING LEFT 9/10 HIP AND LEG PAIN AND HAS NO MEDS EXCEPT NORCO AND NORCO IS NOT DUE. 1315 CALLED BACK AND CARLOS TOOK A NEW ORDER FOR NORCO 1-2 Q4PRN. ORDER FINALLY VERIFIED BY PHARMACY 2 PO NORCO GIVEN FOR 9/10 PAIN.
--- NOTE | 2017-12-09 14:16 | NUR ---
PATIENT AMBULATED TO THE BATHROOM WITH 1 PERSON ASSIST AND WALKER. PATIENT HAD A LARGE FINLEY SOFT FORMED STOOL. PATIENT BACK IN THE CHAIR NOW.
--- NOTE | 2017-12-09 14:48 | NUR ---
PATIENT SITTING UP IN CHAIR WATCHING TV. CALL LIGHT WITHIN REACH. FRESH WATER AND HOT CHOCOLATE. NO OTHER NEEDS AT THIS TIME.
--- NOTE | 2017-12-09 16:10 | NUR ---
PATIENT CONTINUES TO BE UP IN THE CHAIR WATCHING TV. PATIENT APPARENTLY HAD ANOTHER EPISODE OF NAUSEA AFTER I WALKER HER TO THE BATHROOM LAST. PATIENT HAD SOME VOMIT IN AN EMESIS BAG IN HER CHAIR THAT WAS FOUND WHEN A AFRICAN HISTORY PROFESSOR WALKED THE PATIENT LAST. I WENT AND TALKED WITH THE PATIENT AND ASKED HER TO PLEASE CALL IF SHE WAS HAVING NAUSEA OR N/V. PATIENT SAID SHE WOULD. PATIENT IS 3/10 LEFT HIP PAIN AT THIS TIME.
--- NOTE | 2017-12-09 16:57 | NUR ---
THIS AWNING CRAFTSPERSON ASSISTED PATIENT TO THE RESTROOM. 1 PERSON SBA WITH FWW. PATIENT SITTING UP IN CHAIR NOW. CALL LIGHT WITHIN REACH. NO OTHER NEEDS AT THIS TIME.
--- NOTE | 2017-12-09 18:57 | NUR ---
PATIENT HAS BEEN UP IN THE RECLINER SINCE BREAKFAST WITH MULTIPLE 1 PERSON PORFIRIO ASSISTS TO THE BATHROOM. PATIENT HAD AN EPISODE OF N/V AT ABOUT 0930 AND WAS GIVEN 4MG SL ZOFRAN AND THEN 1 NORCO FOR LEFT HIP PAIN OF 8/10. PAIN RESOLVED AND PATIENT SPENT ALMOST 1 HOUR WITH PT. PATIENT THEN HAD 9/10 PAIN IN THE LEFT HIP AND LEG AROUND 1230. CALLED AT 1235 AND LEFT A MESSAGE ABOUT THE PATIENT'S PAIN AND ASKED HIM TO CALL BACK SINCE IT WAS 2 EARLY TO GIVE THE NORCO AND NO OTHER PAIN MEDS AVAILABLE. DR. OLIVARES RETURNED THE CALL AND GAVE NEW ORDERS FOR NORCO 1-2 TABS Q4 HOURS PRN. PHARMACY VERFIED THE ORDER AND I WAS ABLE TO GIVE 2 NORCO FOR 9/10 PAIN AT 1353. PATIENT'S PAIN RELIEVED IN THE NEXT COUPLE HOURS, BUT DARNELL ARDON, FOUND AN EMESIS BAG WITH SOME EMESIS IN IT IN THE PATIENT'S CHAIR. I WENT AND SPOKE TO THE PATIENT AND SHE WAS NOT HAVING PAIN THAT SHE WANTED MEDICATED FOR AND NO NAUSEA. PATIENT DID NOT NEED ANYTHING FOR NAUSEA OR PAIN FOR THE REST OF THE SHIFT. PATIENT ALSO HAD A LARGE SOFT FORMED BM TODAY.
--- NOTE | 2017-12-09 19:01 | NUR ---
PATIENT SITTING UP IN CHAIR. FRESH ICE WATER. ICE IN CRYO. CALL LIGHT WITHIN REACH. NO OTHER NEEDS AT THIS TIME.
--- NOTE | 2017-12-09 19:38 | NUR ---
PT A/O IN CHAIR. HEARING AIDE IN RIGHT EAR. PT REPORTS PAIN IS TOLERABLE AT THIS TIME. NO N/V AT THSI TIME. CRYOCULL ON LEFT HIM. NO IV ACCESS. PT UP TO BATHROOM VIA 1PA W/ FWW. PT APPEARED TO START CRYING. PT REPORTED THAT SHE THOUGHT WE WERE UPSET WITH HER. REASSURED PT THAT WE WERE DISCUSSING HER NIGHT SO WE COULD MAKE SURE SHE IS COMFORTABLE. PT CALMED DOWN AND FELT BETTER. CALL LIGHT WITHIN REACH.
--- NOTE | 2017-12-09 21:36 | NUR ---
JUNE ADMINISTERPT NIGHT TIME MEDICATION WITH PRN PAIN MED. AFTER SWALLOWING MEDICATIONS PT REPORTED FEELING SICK TO HER STOMACH. SHORTLY AFTER THE PT VOMITTED. I WAS ABLE TO VISUALLY SEE THE GABAPENTIN AND MACROBID IN THE BAG OF EMISIS. MEDICATION WAS WAISTED IN THE PIXUS AND NEW ONES PULLED AND ADMINISTERED. ZORFRAN WAS GIVEN BEFORE NEW MEDICATION WERE ADMINISTERED. PT REPORTED STOMACH WAS FEELING BETTER. CALL LIGHT WITHIN REACH, WILL CONT TO MONITOR.
--- NOTE | 2017-12-09 22:00 | NUR ---
ASSESSMENT COMPLETED. PT REPORTS STOMACH ACHE WITH NAUSEA AND VOMITTING. PRN MEDICATION GIVEN AND WARM PACK TO BELLY. LLE WRAPPED WITH WARM BLANKET, ICE ON LEFT HIP. LUNGS SOND CLEAR. HEART TONE IRREGULAR. BOWEL TONES ACTIVE. CALL LIGHT WITHIN REACH.
--- NOTE | 2017-12-10 | NUR ---
PT OOB TO BATHROOM. VOIDED 150 ML. BACK TO BED. REPORTS PAIN 6/10 ASS TOLERABLE. CALL LIGHT WITHIN REACH. CRYOCUFF IN PLACE. WARM PACK ON LLE. HEEL PROTECTORS IN PLACE. REPORTS NO OTHER NEEDS AT THIS TIME.
--- NOTE | 2017-12-10 02:07 | NUR ---
PT APPEARS TO BE SLEEPING. CRYOCUFF IN PLACE. CALL LIGHT WITHIN REACH. RESPIRATIONS EQUAL AND NONLABORED.
--- NOTE | 2017-12-10 04:21 | NUR ---
PT REPORTED FEELINGS OF NAUSEA. ZOFRAN GIVEN. CALL LIGHT WITHN REACH. PT GOT READY FOR THE DAY AND IS UP IN CHAIR. MORNING CARES COMPLETED.
--- NOTE | 2017-12-10 06:27 | NUR ---
PT HAD 2 NASEOUS TIMES. WITH NIGHT MEDS AND THIS AM. ZOFRAN GIVEN. SLEPT MSOT THE NIGHT. NORCO 2 TABS Q4 FOR PAIN. LLE PAIN AND CRYOCUFF ON LEFT HIP. SWING. HERE FOR PT/OT. LLE EDEMA IS +2.
--- NOTE | 2017-12-10 08:28 | NUR ---
norco pain pill given ( 1 tab) patient had tolerated about 50 percent of breakfast. no nausea at this time. patient stating that she is just painful this morning rating pain 6/10. informed patien that i would give her one pill, make sure she was tolerating with no nausea and if needed she could have the other pain medication. patient agreed. assessment complete.
--- NOTE | 2017-12-10 09:30 | NUR ---
patient working with pt. patient stating pain 5/10. no nausea at this time. planning on another norco tab after physical therapy.
--- NOTE | 2017-12-10 11:55 | NUR ---
CALLED DR. OLIVARES FOR UPDATED ON PATIENT. INFORMED HIM OF HER INCREASE OF FEELING NAUSEATED FOR THE LAST COUPLE DAYS. TODAY HAS BEEN BETTER BUT HAVING TO TREAT WITH ZOFRAN FREQUENTLY. NO NEW ORDERS BUT TO CONT ZOFRAN. ALSO NEW ORDER FOR SUPP. DUE TO CONSTIPATON. UPDATED ON RECIEVING 12 DOSES OF XARELTO. HE WISHES TO CONTINUE UNTIL FURTHER NOTICE. NO OTHER NEW ORDERS AT THIS TIME.
--- NOTE | 2017-12-10 12:29 | NUR ---
PATIENT GIVEN SUPP WHILE IN THE BR. PATIENT ASSISTED TO CHAIR FROM BR. PATIENT THEN SET UP TO EAT LUNCH.
--- NOTE | 2017-12-10 12:40 | NUR ---
PATIENT ASSISTED TO THE BR. PATIENT HAD LARGE SOFT BM. PATIENT STATING THAT SHE FEELS BETTER AT THIS TIME. ASSISTED TO CHAIR SO THAT SHE COULD FINISH DINNER.
--- NOTE | 2017-12-10 14:56 | NUR ---
PAITENT SICK TO HER STOMACH. HAD 200MLS OF EMESIS OUT. PATIENT STATING SHE IS FEELING CRAMPING.
--- NOTE | 2017-12-10 15:16 | NUR ---
patient sitting up in chair. patient stating while she is sitting she is not having any pain at this time. patient stating she is feeling nausea on and off. zofran given. crackers at bedside. water and sprite next to patient.
--- NOTE | 2017-12-10 16:08 | NUR ---
PETEY ASSISTED INTO THE SHOWER. PATIENT WAS A ONE ASSIST TO SHOWER. PARTICIPATING IN CARES WELL. DOING WELL WITH WASHING SELF WITH MINIMAL HELP. ASSISTED BACK TO CHAIR. LOTION APPLIED. PATIENT STATING THE SHOWER FELT REALLY GOOD. SITTING IN CHAIR WITH CRYO IN PLACE.
--- NOTE | 2017-12-10 16:33 | NUR ---
PATIENT DOING OKAY TODAY. WORKED WITH PT TODAY. HAVING GOOD PAIN CONTROL WITH ONE NORCO. HAVE BEEN GIVING MEDICATION VERY SLOW TODAY DUE TO HAVING NAUSEA AND EMESIS FOR THE LAST COUPLE DAYS. PATIENT HAD ONE EPISODE OF EMESIS OF 200MLS. TREATING WITH LORE X2 THROUGHOUT THE DAY. PATIENT ASSITED WITH A SHOWER. PATIENT TOLERATED SHOWER WELL.AND STATED THAT IT MADE HER FEEL A LOT BETTER. PATIENT WAS GIVEN A SUPP. PATIENT HAS HAD SEVERAL STOOLS
--- NOTE | 2017-12-10 17:47 | NUR ---
patient tolerated 50 percent of dinner. stating pain was 7/10. 1 tab norco given. pateint stating at this time no nausea. crackers brought in with pain medication. instructed pateint to snack on crackers after pain pill. patient has call light within reach. cryo refilled with ice.
--- NOTE | 2017-12-10 19:44 | NUR ---
RECIEVED BEDSIDE REPORT FROM CARLOS RICHARDSON. PT UP IN CHAIR. CALL LIGHT WITHIN REACH.
--- NOTE | 2017-12-10 19:50 | NUR ---
VITALS AND I&OS DONE AND CHARTED. HELPED GET HER INTO THE BATHROOM WITH HER FWW AND BACK TO BED. CRYO PUT ON. BEDSIDE TABLE AND CALL LIGHT WITHIN REACH.
--- NOTE | 2017-12-10 22:00 | NUR ---
PT APPEARS TO BE SLEEPING. RESPIRATIONS EQUAL AND NONLABORED.CALL LIGHT WITHIN REACH. CRYOCUFF IN PLACE.
--- NOTE | 2017-12-11 | NUR ---
PT APPEARS TO BE SLEEPING. HOB ELEVATED. CRYOCUFF IN PLACE. RESPIRATIONS EQUAL AND NONLABORED. CALL LIGHT WTIHIN REACH
--- NOTE | 2017-12-11 02:00 | NUR ---
PT OOB TO BATHROOM. XL BM. BACK TO BED. REPORTED FEELINGS OF NAUSEA. PRN ZOFRAN GIVEN. CALL LIGHT WTIHIN REACH.
--- NOTE | 2017-12-11 04:50 | NUR ---
HELPED PT GET TO THE BATHROOM AND BACK TO HER CHAIR WITH HER FWW. CRYO PUT ON, ICE WATER ADDED. BEDSIDE TABLE AND CALL LIGHT WITHIN REACH. FRESH WATER GIVEN.
--- NOTE | 2017-12-11 05:10 | NUR ---
PT UP FOR DAY. REPORTS NO PAIN AND NO NAUSEA AT THIS TIME/ CALL LIGHT WITHIN REACH. NOVEMBER WARP PREPARER ASSISTING PT.
--- NOTE | 2017-12-11 05:30 | NUR ---
SLEPT MOST OF THE NIGHT. SOME NAUSEA AND PAIN LASTNIGHT AND THIS AM. CRYOCUFF. LOURDES LAST GIVEN 1 TAB AT 0520. ZOFRAN GIVEN AT 0200. SWING BE WORKING WITH PT/OT.
--- NOTE | 2017-12-11 07:49 | NUR ---
PATIENT RESTING IN BEDSIDE RECLINER. CLEAN GOWN AND ORAL CARE SET UP IN BATHROOM FOR AFTER BREAKFAST. CRYO FILLED WITH FRESH ICE. FRESH ICE WATER AT BEDSIDE TABLE. CALL LIGHT IN REACH. LINENS STRAIGHTENED. NO OTHER NEEDS AT THIS TIME.
--- NOTE | 2017-12-11 08:43 | NUR ---
PATIENT REPOSITIONED IN BEDSIDE RECLINER, PATIENT REQUESTED TO REST FOR A WHILE. CALL LIGHT IN REACH. FRESH ICE WATER ON BEDSIDE TABLE. NO OTHER NEEDS AT THIS TIME.
--- NOTE | 2017-12-11 09:05 | NUR ---
THIS MARKETING ASSISTANT MANAGER ASSISTED PATIENT UP TO BATHROOM AND BACK TO BEDSIDE RECLINER. PATIENT COMPLAINS OF PAIN ON HER LEFT HIP, RATING IT AT A 10 OUT OF 10. RN NOTIFIED. PATIENT READJUSTED WITH WARM BLANKETS AND PILLOWS TO HELP WITH PAIN. CRYO CUFF ON HIP. HEEL PROTECTORS ON. PATIENT'S FEET ELEVATED IN RECLINER. CALL LIGHT IN REACH. FRESH ICE WATER AT BEDSIDE TABLE. NO OTHER NEEDS AT THIS TIME.
--- NOTE | 2017-12-11 09:37 | NUR ---
PT SITTING UP IN RECLINER. REPORTED PAIN TO LEFT LEG/HIP 10/10. GAVE NORCO 2 TAB PO PRN. APROXIMATELY 15 MINUTES LATER, PT BECAME NAUSEATED, HAD 25 CC EMESIS. EMESIS WAS CLEAR, WITH NO PILLS IN EMESIS NOTED. GAVE PT ZOFRAN ODT 4 MG PRN. PT NOW IN RECLINER, RESTING WITH EYES CLOSED. PERSONAL SUPPLIES AND CALL LIGHT IN REACH.
--- NOTE | 2017-12-11 09:59 | NUR ---
ROBSON, PHYSICAL THERAPIST IN WITH PT, PT SITTING UP IN RECLINER. DR. OLIVARES IN TO SEE PT, ASSESSED PT FOR REPORTS OF LEFT FOOT DROP. LEFT FOOT AND ANKLE STRENGTH WEAK COMPARED WITH RIGHT FOOT AND ANKLE STRENGTH. DR. OLIVARES SPOKE WITH PT REGARDING THIS, AND PLAN OF CARE. PT VERBALIZED UNDERSTANDING.
--- NOTE | 2017-12-11 10:28 | NUR ---
PT UP, AMBULATED IN HALLS WITH PHYSCIAL THERAPY. WALKED AROUND "LOOP" X 1. AMBULATED WITH 1 PERSON ASSIST WITH FWW.
--- NOTE | 2017-12-11 10:56 | NUR ---
PHONE ORDER D/C MRI AND ORDER CT LUMBAR WITHOUT CONTRAST
--- NOTE | 2017-12-11 11:27 | NUR ---
PROGRAM ENGAGEMENT DIRECTOR IN ROOM WITH PT, DOING US OF LOWER EXTREMITIE TO RULE OUT DVT. PT WAS ASSISTED TO BED, AND IS NOW HAVING IMAGING DONE.
--- NOTE | 2017-12-11 12:13 | NUR ---
PT TO DIAGNOSTIC IMAGING FOR CT OF LUMBAR SPINE VIA W/C, ACCOMPANIED BY DIVING SUPERVISOR.
--- NOTE | 2017-12-11 12:47 | NUR ---
PT SITTING UP IN, BEGINNING TO EAT LUNCH. SHE HAD A SMILE ON HER FACE AND THANKED ME FOR COMING IN. I EXTENDED A BLESSING TO HER SO SHE COULD EAT HER LUNCH WHILE IT WAS HOT, AND IMAGING CAME TO TAKE HER. WILL FOLLOW NEEDED
--- NOTE | 2017-12-11 16:20 | NUR ---
PT UP IN RECLINER. C/O 01/14 PAIN. GAVE NORCO 5/325 MG, 1 TAB PO PRN. PT WORKING WITH OCCUPATIONAL THERAPY.
--- NOTE | 2017-12-11 16:49 | NUR ---
PER ROBSON, PHYSICAL THERAPIST, PT IS UPSET, STATING THAT SHE DOES NOT WANT TO GO TO A [facility]. THIS RN REASSURED PT THAT THERE IS NO CURRENT PLAN FOR HER TO D/C TO A NURSING FACILITY.
--- NOTE | 2017-12-11 18:44 | NUR ---
PT AWAKE IN CHAIR I AND O DONE. PICKED UP ROOM. EMPTYED GARBAGE
--- NOTE | 2017-12-11 18:55 | NUR ---
PT SITTING UP IN RECLINER, LEGS ELEVATED, LEFT LEG ON PILLOW. KNEE HIGH CLAUDE HOSE ON. PT GIVE WARM BLANKET TO LEFT LOWER LEG PER HER REQUEST FOR PAIN RELIEF. DENIED OTHER NEEDS AT THIS TIME. PERSONAL SUPPLIES AND CALL LIGHT IN REACH.
--- NOTE | 2017-12-11 19:46 | NUR ---
RECEIVED REPORT FROM DAY SHIFT RN. PATIENT IS RESTING IN RECINER. PATIENT DENIES ANY PAIN AT THIS TIME. PATIENT DENIES ANY NEEDS. CALL LIGHT IN REACH.
--- NOTE | 2017-12-11 21:02 | NUR ---
PATIENT ASSESMENT COMPLETED. PATIENTS EVENING MEDICATIONS GIVEN PER ORDER W/FOOD. PATIENT RATES PAIN AT A 4/10. PATIENT GIVEN PRN PAIN MEDICATION PER ORDER. PATIENT ASSISTED TO THE RESTROOM A SBA W/FWW. PATIENT TOLERATES AMBULATION WELL. LEFT FOOT DROP NOTED. PATIENT IS NOW IN BED RESTING. PATIENT HAS TEDHOSE, SCDS, AND CRYO APPLIED TO LEFT HIP. CRYO HAS SUFFICIENT ICE. PATIENTS DRESSING IS C/D/I. PATIENT IS AAOX3. PATIENT DENIES ANY FURTHER NEEDS AT THIS TIME. CALL ELSIE FLORES.
--- NOTE | 2017-12-11 23:35 | NUR ---
PATIENT IS RESTING IN BED WITH EYES CLOSED. RR 16. PATIENTS BREATHING IS EVEN AND UNLABORED. PATIENT HAS CRYO APPLIED TO LEFT HIP, ICE SUFFICIENT. CALL LIGHT IN REACH.
--- NOTE | 2017-12-12 01:08 | NUR ---
PATIENT IS RESTING IN BED WITH EYES CLOSED. SCS, TEDHOSE, AND HEEL PROTECTORS IN PLACE. CRYO REFILLED WITH ICE. RR 17. CALL LIGHT IN REACH.
--- NOTE | 2017-12-12 03:12 | NUR ---
PATIENT CONTINUES TO REST IN BED WITH EYES CLOSED. RR 17. CALL LIGHT IN REACH.
--- NOTE | 2017-12-12 04:48 | NUR ---
PATIENT RESTED WELL THROUGHOUT THE SHIFT. PATIENT RECEIVED X1 PRN PAIN MEDICATION. PATIENT DENIED ANY NAUSEA. PATIENT IS A SBA W/FWW. PATIENTS DRESSING IS C/D/I. CHARI WORKING WITH PT/OT. PATIENT HAS SCDS, TEDHOSE, AND CRYO . PATIENT IS CHEHALIS AND HAS COCHLEAR IMPLANTS. LEFT FOOT DROP NOTED. PATIENT IS AAOX3 AND USES CALL LIGHT APPROPRIATELY.
--- NOTE | 2017-12-12 05:02 | NUR ---
CRYO CUFF REFILLED.
--- NOTE | 2017-12-12 05:53 | NUR ---
VITALS TAKEN BY CHIEF AIRLINE RADIO OPERATOR, CRYO REFILLED. SCDS IN PLACE. PATIENT CONTINUES TO REST IN BED. CALL LIGHT IN REACH.
--- NOTE | 2017-12-12 06:26 | NUR ---
PATIENT ASSISTED TO THE RESTROOM A SBA W/FWW. PATIENT TOLERATES AMBULATION WELL. PATIENT WAS ABLE TO VOID. PATIENT IS NOW IN RECLINER RESTING. CRYO APPLIED TO LEFT HIP. CRYO HAS SUFFICIENT ICE. DRESSING IS C/D/I. TEDHOSE IN PLACE. PRN PAIN MEDICATION GIVEN PER ORDER. WITH A SNACK. PATIENT RATES PAIN AT A 5/10. NO FURTHER NEEDS NOTED. CALL LIGHTIN REACH.
--- NOTE | 2017-12-12 06:38 | NUR ---
ORAL CARE COMPLETED THIS MORNING. PATIENT IS RESTING IN RECLINER WATCHING TV. NO FURTHER NEEDS NOTED. CALL LIGHTIN REACH.
--- NOTE | 2017-12-12 07:06 | NUR ---
PT SITTING UP IN RECLINER, LEGS ELEVATED. PERSONAL SUPPLIES AND CALL LIGHT IN REACH. RECIEVED BEDSIDE REPORT FROM DYLAN REYNA AND DELMIS STUDENT NURSE.
--- NOTE | 2017-12-12 08:09 | NUR ---
DR. OLIVARES IN TO SEE PT, DISCUSSED HAVING ANOTHER CT DONE ON MONDAY. PT VERBALIZED UNDERSTANDING. PT SITTING UP IN RECLINER, EATING BREAKFAST. PERSONAL SUPPLIES AND CALL LIGHT IN REACH. PT RATED PAIN TO LLE 6/10, RECIEVED SCHEDULED GABAPENTIN AND MOBIC. CRYO CUFF ON TO LEFT HIP. LEFT HIP DRESSING C/D/I. PT DENIES NAUSEA AT THIS TIME.
--- NOTE | 2017-12-12 08:27 | NUR ---
PATIENT SITTING UP IN CHAIR. CALL LIGHT WITHIN REACH. NO OTHER NEEDS AT THIS TIME.
--- NOTE | 2017-12-12 09:00 | NUR ---
PT UP TO BATHROOM WITH FWW WITH 1 PERSON ASSIST. PT WAS INCONTINENT OF URINE IN ATTENDS, THEN VOIDED 150 CC CLEAR YELLOW URINE. ASSISTED PT WITH AM CARE, WASHING FACE AND HANDS. THEN ASSISTED PT WITH EPI CARE. PT NOW IN BED, X RAY TECHNICIANS IN WITH PT FOR LEFT HIP IMAGING NOW. CALL BUTTON IN REACH.
--- NOTE | 2017-12-12 09:14 | NUR ---
PT IN BED, REQUESTED TO REST IN BED. CRYO CUFF TO LEFT HIP, CALL LIGHT IN REACH, ARE PERSONAL SUPPLIES. PT DENIED NEEDS.
--- NOTE | 2017-12-12 09:50 | NUR ---
PT WORKING WITH OCCUPATIONAL THERAPYNYASIA OT NOTIFIED THIS RN THAT PT C/O DIZZINESS WITH STANDING. TOOK ORTHOSTATIC VS, PT ABLE TO STAND FOR 1 MINUTE, BUT UNABLE TO STAND FOR 3 MINUTES. INITIAL VS LAYIN/55(71), PULSE 53, STANDING AFTER 1 MINUTE: 110/44(61) PULSE 56. PT REPORTED THAT DIZZINESS WAS GETTING BETTER, STATED "IT'S NOT BAD NOW" WHEN STANDING FOR 1 MINUTE FOR ORTHOSTATIC VS. PT NOW IN BATHROOM SITTING ON TOILETNYASIA WITH PT.
--- NOTE | 2017-12-12 09:59 | NUR ---
NOTIFIED DR. OLIVARES THAT PT C/O FEELING DIZZY UPON STANDING WITH OCCUPATIONAL THERAPY, AND THAT WHEN ORTHOSTATIC VS WERE OBTAINED, BP AND MAP DROPPED, MAP DROPPING FROM 71 TO 61, AND PULSE WAS 53 WHILE LAYING, 56 AFTER STANDING 1 MINUTE. NOTIFIED VIA TELEPHONE. DR. OLIVARES ACKNOWLEDGED INFORMATION PROVIEDED, NO NEW ORDERS AT THIS TIME. ALSO NOTIFIED DR. OLIVARES THAT PT'S PO INTAKE HAS BEEN POOR, BUT THAT SHE DRANK 200 CC APPLE JUICE THIS AM, AND HAS AGREED TO DRINK AN ENSURE.
--- NOTE | 2017-12-12 10:12 | NUR ---
PATIENT IN THE SHOWER WITH OTHERAPY ASSISTING. LINEN CHANGED.
--- NOTE | 2017-12-12 10:47 | NUR ---
PT SHOWERED WITH ASSISTANCE FROM NYASIA, OCCUPATIONAL THERAPIST. PT NOW BACK IN BED, LEFT LEG ELEVATED ON PILLOWS AT HEEL/LOWER CALF. SCDS AND CLAUDE HOSE ON. CRYO CUFF IN PLACE TO LEFT HIP, LEFT HIP DRESSING C/D/I. PT RATED PAIN TO LEFT LEG 5/10, BUT DECLINED PAIN MEDICATION AT THIS TIME. EDUCATED PT ON CALLING IF SHE DECIDED THAT SHE WANTED A PAIN MEDICATION. PT DENIED NAUSEA. PT ENCOUARGED TO DRINK CHOCOLATE ENSURE AND WATER. PERSONAL SUPPLIES AND CALL BUTTON IN REACH. PT ASSISTED TO POSITION FOR COMFORT. DENIED OTHER NEEDS AT THIS TIME.
--- NOTE | 2017-12-12 11:44 | NUR ---
PT RATES PAIN TO LLE 5/10, BUT DECLINES PAIN MEDICATION AT THIS TIME. STATED THAT SHE WILL CALL IF SHE DECIDES SHE WANTS PAIN MEDICATION.
--- NOTE | 2017-12-12 11:55 | NUR ---
PT IN BED. ASSISTED PT IN ORDERING LUNCH. PT HAS DRANK 50% OF CHOCOLATE ENSURE THUS FAR. DENIED NEEDS. PERSONAL SUPPLIES AND CALL LIGHT IN REACH.
--- NOTE | 2017-12-12 12:24 | NUR ---
PT ASSISTED FROM BED TO RECLINER FOR LUNCH. PT UP WITH MINIMAL ASSIST, AND AMBULATED FROM BED TO RECLINER WITH STANDBY ASSIST. PT HAD FINISHED CHOCOLATE ENSURE, TOLERATED WELL. PERSONAL SUPPLIES AND CALL LIGHT IN REACH. PT CONTINUES TO DENY NEED FOR PAIN MEDICATION AT THIS TIME.
--- NOTE | 2017-12-12 13:42 | NUR ---
PT SITTING UP IN RECLINER, PREPARING TO WORK WITH ROBSON, PHYSICAL THERAPIST. RATED PAIN TO LLE 6/10, AND REQUESTED PRN PAIN MEDICAITON. GAVE NORCO 5/25 MG 1 TAB PO PRN. PT NOW UP, AMBULATING WITH FWW WITH STANDBY ASSIST WITH ROBSON.
--- NOTE | 2017-12-12 13:42 | NUR ---
PT WAS SITTING IN CHAIR, FINISHING HER LUNCH. SAME YESTERDAY-GRILLED CHEESE AND TOMATO SOUP. SHE CALLS ME "", AND I IDENTIFY MYSELF AND SHE STILL CALLS ME "". SHE SAID SHE WAS BETTER, ALWAYS WITH A SMILE ON HER FACE. WILL CONTINUE TO FOLLOW, NO MATTER WHO SHE THINKS I AM!
--- NOTE | 2017-12-12 14:09 | NUR ---
PATIENT WORKING WITH PTHERAPY.
--- NOTE | 2017-12-12 14:13 | NUR ---
patient resting in bed. call light in reach, cryo filled. no other needs at this time.
--- NOTE | 2017-12-12 16:48 | NUR ---
PT IN BED, SITTING UP EATING DINNER OF SOUP, JELLO, AND ICE CREAM. GAVE PT CHOCOLATE ENSURE. PT REPORTED PAIN TO LLE 03/16, GAVE PT NORCO 5/325 MG 1 TAB PO PRN. PT HAS PERSONAL SUPPLIES AND CALL LIGHT IN REACH. DENIES NAUSEA.
--- NOTE | 2017-12-12 17:12 | NUR ---
PT UP WITH STANDBY TO 1 PERSON ASSIST. REPORTED LLE PAIN THROUGHOUT SHIFT, WITH PAIN SEVERITY RANGING FROM 2-8/10. RECIEVED NORCO 5/325 MG 1 TAB PO PRN AT 1342 AND AT 1647. DRESSING TO LLE INTACT. SENSATION AND CIRCULATION TO LLE INTACT. PT HAS LEFT FOOT DROP, DR. OLIVARES AWARE. PLAN FOR REPEAT SPINAL CT ON MONDAY, PER DR. OLIVARES. PT WORE LEFT COCHLEAR IMPLANT THROUGHOUT DAY. PT [place] WITH COCHLEAR IMPLANT, VERY [place] WITHOUT. PT USED CRYO CUFF TO LEFT HIP THROUGHOUT SHIFT, SCDS ON WHEN IN BED, AND KNEE HIGH CLAUDE HOSE ON THROUGHOUT SHIFT. PT TOOK SHOWER WITH ASSISTANCE FROM OCCUPATIONAL THERAPY THIS AM. LUNGS CTA, DIM IN BASES. PT EDUCATED REGARDING NEED TO USE I.S., DB&C.
--- NOTE | 2017-12-12 17:27 | NUR ---
DR. LERMA NOTIFIED OF BLOODY STOOL, AND PT'S REPORT OF HAVING HEMERRHOIDS, WITH OCCASIONAL BLOODY STOOLS. NO NEW ORDERS. DR. LERMA VERBALIZED ACKOWLEDGEMNT OF ABOVE NOTED.
--- NOTE | 2017-12-12 18:36 | NUR ---
PT UP TO BATHROOM, HAD A BM, THEN BACK TO BED. ASSISTED TO POSITION FOR COMFORT, CRYO CUFF REFILLED WITH FRESH WATER AND ICE. PERSONAL SUPPLIES AND CALL LIGHT IN REACH. PT DENIED NEEDS. RATED PAIN TO LEFT LEG 5/10, DENIED NEED FOR PAIN MEDICATION AT THIS TIME. CRYO CUFF TO LEFT HIP, KNEE HIGH CLAUDE HOSE ON, SCDS ON, AND HEEL PROTECTORS ON. PT'S LEGS ELEVATED ON PILLOW.
--- NOTE | 2017-12-12 18:38 | NUR ---
THIS POLYMER SCIENTIST ASSISTED PATIENT UP TO BATHROOM, BACK TO BED. PATIENT PERFORMED ORAL CARE, AND WASHED HANDS AND FACE WITH WASH CLOTH. PATIENTS DENTURES SET TO SOAK IN BATHROOM. PATIENTS COCHLEAR IMPLANT DEVICE REMOVED AND CHARGING. SCD'S ON, HEEL PROTECTORS ON, CRYO FILLED BY RN, CALL LIGHT IN REACH. NO OTHER NEEDS AT THIS TIME.
--- NOTE | 2017-12-12 19:07 | NUR ---
RECEIVED REPORT FROM DAY SHIFT RN. PATIENT IS RESTING IN BED WATCHING TV. PATIENT DENIES ANY NEEDS. NO PAIN NOTED. CRYO APPLIED TO LEFT HIP. DRESSING C/D/I. SCDS, TEDHOSE, AND HEEL PROTECOTRS IN [place]. LEGS ELEVATED. CALL LIGHT IN REACH.
--- NOTE | 2017-12-12 21:43 | NUR ---
PATIENT ASSESMENT COMPLETED. PATIENTS EVENING MEDCIATIONS GIVEN PER ORDER. PATIENT GIVEN PRN PAIN MEDICATION FOR A 5/10. PATIENTS DRESSING ON LEFT HIP IS C/D/I. PATIENT HAS TEDHOSE, SCDS, AND HEEL PROTECOTRS IN PLACE. PATIENT IS RESTING IN BED. PATIENTS CRYO IS APPLIED TO LEFT HIP AND HAS SUFFICIENT ICE. PATIENT GIVEN SNACK WITH MEDICATIONS. PATIENTS LEGS ARE ELEVATED. PATIENT IS AAOX3. PATIENT IS SLEETMUTE. NO FURTHER NEEDS NOTED. PATIENTS BOWEL MEDICATION WITHHELD PATIENT HAS X3 LOOSE LARGE BMS. CALL LIGHT IN REACH.
--- NOTE | 2017-12-12 21:50 | NUR ---
ASSISTED PATIENT TO THE BEDSIDE COMMODE AND BACK TO BED X3 USING WALKER. CRYO CUFF, HEEL PROTECTOR AND SCDS ARE BACK ON. CALL LIGHT WITHIN REACH. V/S, I/O TAKEN.
--- NOTE | 2017-12-13 00:03 | NUR ---
PATIENT IS RESTING IN BED WITH EYES CLOSED, RR17. PATIENT HAS SCDS, TEDHOSE, AND HEEL PROTECTORS IN PLACE. PATIENTS LEGS ARE ELEVATED ON A PILLOW. PATIENT HAS CRYO APPLIED TO LEFT HIP AND ICE IS SUFFICIENT. CALL LIGHT IN REACH.
--- NOTE | 2017-12-13 02:53 | NUR ---
PATIENT IS RESTING IN BED WITH EYES CLOSED. RR 17. CRYO REFILLED. CRYO APPLIED TO LEFT HIP. PATIENT CONTINUES TO WEAR SCDS, TEDHOSE, AND HEEL PROTECTORS. CALL LIGHT IN REACH.
--- NOTE | 2017-12-13 05:13 | NUR ---
PATIENT RESTED WELL THROUGHOUT THE SHIFT. PATIENT RECEIVED X1 PRN PAIN MEDICATION. PATIENT DENIED ANY NAUSEA. PATIENT IS A SBA W/FWW. PATIENTS DRESSING IS C/D/I. CHARI WORKING WITH PT/OT. PATIENT HAS SCDS, TEDHOSE, AND CRYO . PATIENT IS [place] AND HAS COCHLEAR IMPLANTS. LEFT FOOT DROP NOTED. PATIENT IS AAOX3 AND USES CALL LIGHT APPROPRIATELY.
--- NOTE | 2017-12-13 05:13 | NUR ---
PATIENT CONTINUES TO REST IN BED WITH EYES CLOSED. RR 17. CALL LIGHT IN REACH.
--- NOTE | 2017-12-13 06:11 | NUR ---
PATIENT ASSISTED TO THE RESTROOM A SBA W/FWW. PATIENT TOELRATED AMBUALTION WELL. WHN PATIENT WAS STANDING AT THE SINK. PATIENT BECAME NAUSEOUS AND HAD ABOUT 20ML OF EMESIS IN THE SINK. PATIENT IS NOW RESTING IN THE RECLINER. TEDHOSE IN PLACE. CRYO REFILLED WITH ICE AND APPLIED TO LEFT HIP. PATIENTS DRESSING IS C/D/I. PATIENT GIVEN PRN ZOFRAN PER ORDER. PATIENT RATES PAIN AT A 5/10. PATIENT EDUCATED ON LETTING HER STOMACH SETTLE BEFORE ADMINISTERING A PAIN PILL. PATIENT VERBALIZES UNDERSTANDING. PATIENT GIVEN WARM BLANKET FOR HHER LOWER EXT. PATIENT GAVE A THUMBS UP AND STATED "THAT HELPS". PATIENT IS AAOX3. WILL CONTINUE TO MONITOR. CALL LIGHT IN REACH.
--- NOTE | 2017-12-13 06:37 | NUR ---
PATIENT WAS ABLE TO EAT CRACKERS WITH NO ISSUES. PATIENT REQUESTED PAIN PILL FOR 6/10 PAIN IN HER LEFT LEG. PATIENT GIVEN PRN PAIN MEDICAITON PER ORDER. PATIENT DENIES ANY FURTHER NEEDS. FRECH OCE WATER PROVIDED. CALL LIGHT IN REACH. TEDHOSE AND CRYO IN PLACE. AAOX3.
--- NOTE | 2017-12-13 07:25 | NUR ---
PT UP IN RECLINER, LEGS ELEVATED AND ON PILLOWS. PT AWAKE, ALERT. PT REPORTED THAT HER STOMACH WAS FEELING BETTER. RECIEVED BEDSIDE REPORT FROM DYLAN REYNA. PERSONAL SUPPLIES AND CALL LIGHT IN REACH.
--- NOTE | 2017-12-13 07:52 | NUR ---
PT UP TO BATHROOM TO VOID, VOIDED URINE IN HAT. PT THEN BACK TO RECLINER. PT REPORTED 10/10 PAIN TO LLE, GAVE NORCO 5/325 MG 1 TAB PO PRN. HELD MIRILAX PT HAD 3 LARGE LOOSE STOOLS DURING NOC SHIFT.
--- NOTE | 2017-12-13 08:04 | NUR ---
RN IN ROOM. PATIENT SITTING UP IN CHAIR. NO OTHER NEEDS AT THIS TIME.
--- NOTE | 2017-12-13 08:07 | NUR ---
THIS ENGINEER STATION MAINLINE ASSISTED PATIENT UP FROM BATHROOM BACK TO BEDSIDE RECLINER. RN IN ROOM. THIS ENGINEER STATION MAINLINE ADJUSTED PATIENT'S CLUADE HOSE AND NOTICED REDNESS AND WORSENING IRRITATION. RN APPROVED TO LEAVE CLAUDE HOSE OFF AND USE SCD'S IN THEIR PLACE FOR TWO HOURS TO HELP WITH IRRITATION. PATIENT SITTING UP IN BEDSIDE RECLINER, FEET ELEVATED, HEEL PROTECTORS AND SCD'S ON. PATIENT EATING BREAKFAST. CALL LIGHT IN REACH. NO OTHER NEEDS AT THIS TIME.
--- NOTE | 2017-12-13 09:17 | NUR ---
PATIENT SITTING UP IN CHAIR
--- NOTE | 2017-12-13 09:43 | NUR ---
PATIENT SITTING UP IN CHAIR. PATIENT STATES SHE IS VERY TIRED. CALL LIGHT WITHIN REACH. NO OTHER NEEDS AT THIS TIME.
--- NOTE | 2017-12-13 11:48 | NUR ---
PATIENT REFUSED SHOWER. PATIENT STATES SHE HAD A SHOWER YESTERDAY (12/12/2017) WITH OTHERAPY.
--- NOTE | 2017-12-13 12:53 | NUR ---
PT SITTING UP IN RECLINER. ATE APROXIMATELY 30% OF MEAL, AND DRANK 100% OF CHOCOLATE ENSURE. PT REPORTED PAIN TO E 11/14, DENIED NEED FOR PAIN MEDICATION AT THIS TIME. DENIED NAUSEA. CRYO CUFF REFILLED WITH FRESH ICE AND WATER. LEGS ELEVATED, AND ON A PILLOW UNDER HEELS. HEEL PROTECTORS, SCDS, KNEE HIGH CLAUDE HOSE ON. CRYO CUFF TO LEFT HIP. LEFT HIP DRESSING C/D/I.
--- NOTE | 2017-12-13 14:06 | NUR ---
PATIENT ASSISTED FROM CHAIR TO BATHROOM. 1 PERSON WITH FWW. PATIENT NOW SITTING UP IN CHAIR. CAREGIVER IN ROOM. CALL LIGHT WITHIN REACH. NO OTHER NEEDS AT THIS TIME.
--- NOTE | 2017-12-13 14:32 | NUR ---
PT SITTING UP IN RECLINER, LEGS ELEVATED. CAREGIVER AT SIDE. PT REPORTED 7/10 PAIN TO LEFT LEG AND LEFT HIP. GAVE PT NORCO 5/325 MG 1 TAB PO PRN, PER PT REQUEST. PT'S PERSONAL SUPPLIES AND CALL BUTTON IN REACH. SCDS, HEEL PROTECTORS, CLAUDE HOSE, AND CRYO CUFF IN PLACE. PT DENIES NAUSEA. PROVIDED WITH FRESH ICE WATER. PT DENIED OTHER NEEDS.
--- NOTE | 2017-12-13 15:46 | NUR ---
PT UP, AMBULATING IN HALLS WITH ROBSON, PHYSICAL THERAPIST USING FWW AND GAIT BELT.
--- NOTE | 2017-12-13 16:21 | NUR ---
PATIENT UP WITH PHYSICAL THERAPY. NO OTHER NEEDS AT THIS TIME.
--- NOTE | 2017-12-13 16:32 | NUR ---
THIS DIRECTOR OF TEACHER EDUCATION ASSISTED PATIENT OUT OF BATHROOM INTO BEDSIDE RECLINER. PATIENT'S LEGS ELEVATED, CLAUDE HOSE AND HEEL PROTECTORS ON, CALL LIGHT IN REACH. PATIENT RESTING. NO OTHER NEEDS AT THIS TIME.
--- NOTE | 2017-12-13 16:41 | NUR ---
PT SLEEPING SOUNDLY IN RECLINER WITH LEGS ELEVATED. NO S/S DISTRESS OR DISCOMFORT NOTED. PERSONAL SUPPLIES AND CALL LIGHT IN REACH.
--- NOTE | 2017-12-13 17:57 | NUR ---
PATIENT RESTING IN BEDSIDE RECLINER. CALL LIGHT IN REACH, NO OTHER NEEDS AT THIS TIME.
--- NOTE | 2017-12-13 18:02 | NUR ---
PT UP WITH 1 PERSON ASSIST WITH FWW. WORE CLAUDE HOSE MOST OF SHIFT, EXCEPT FOR APROXIMATELY 1.5 HOURS THIS AM, AND SCDS WERE ON WHEN PT NOT UP AMBULATING. PT CONTINUES TO DISPLAY LEFT FOOT DROP, WITH OFF AND ON C/O PAIN TO LEFT LOWER LEG AND FOOT, WELL PAIN TO LEFT HIP INCISION AREA. DRESSING TO LEFT HIP C/D/I. SENSATION AND CIRCULATION TO LLE WNL, MOVEMENT WEAK. CRYO CUFF AND HEEL PROTECTORS ON WHEN PT NOT STANDING. PT DECLINED MIRILAX THIS AM, SHE HAD 3 LOOSE STOOLS DURING NOC SHIFT. NORCO 5/325 MG, 1 TAB PO PRN GIVEN AT 0750 AND AT 1427 FOR LEFT HIP AND LLE PAIN. LUNGS CTA, AND PT USED INSENTIVE SPIROMETER THIS SHIFT EACH TIME PROMPTED, AND REPORTED USING IT INDEPENDATLY WELL.
--- NOTE | 2017-12-13 19:17 | NUR ---
THIS CRYPTOGRAPHY TEACHER ASSISTED PATIENT UP TO BATHROOM, BACK TO BED. PATIENT PERFORMED ORAL CARE AT SINK AND LEFT DENTURES TO SOAK IN BATHROOM. PATIENT RESTING IN BED. CRYO FILLED AND APPLIED. SCD'S ON, CLAUDE ROSENTHAL READJUSTED, HEEL PROTECTORS ON. CALL LIGHT IN REACH. NO OTHER NEEDS AT THIS TIME.
--- NOTE | 2017-12-13 19:53 | NUR ---
RECEIVED REPORT FROM DAY SHIFT RN. PATIENT IS RESTING IN BED. BRAILLE AND TALKING BOOKS CLERK IN THE ROOM. NO NEEDS NOTED. CALL LIGHT IN [facility].
--- NOTE | 2017-12-13 21:39 | NUR ---
PATIENT ASSESMENT COMPLETED. PATIENT IS ASSISTED TO THE RESTROOM A 1PA W/FWW. PATIENT TOLERATED AMBULATION WELL. PATIENT IS BACK IN BED RESTING. SCDS, TEDHOSE, AND CRYO IN PLACE. CRYO HAS SUFFICIENT ICE AND IS APPLIED TO LEFT HIP. PATIENT GIVEN EVENING MEDICATIONS PER ORDER. PATIENT GIVEN CRACKERS WITH MEDICATION. PATIENT GIVEN PRN PAIN MEDICATION PER ORDER. FOR 5/10 PAIN IN HER LEFT LOWER LEG AND HIP. DRESSING IS C/D/I. LEFT FOOT DROP NOTED. NO FRUTHER NEEDS NOTED. WARM BLANKET PROVIDED. PATIENT IS AAOX3. CALL KAMRYN FLORES.
--- NOTE | 2017-12-13 23:54 | NUR ---
PATIENT IS RESTING IN BED WITH EYES CLOSED. BREATHING IS EVEN AND UNLABORED, RR 17. PATIENT HAS SCDS, TEDHOSE, AND HEEL PROTECTORS IN PLACE. PATIENT HAS CRYO APPLIED TO LEFT HIP. CALL LIGHT IN REACH.
--- NOTE | 2017-12-14 01:36 | NUR ---
PATIENT CONTINUES TO REST IN BED WITH EYES CLOSED, RR 17. CALL LIGHT IN REACH
--- NOTE | 2017-12-14 03:42 | NUR ---
PATIENT ASSISTED TO THE RESTROOM BY MEDICAID COLLECTION SPECIALIST A SBA W/FWW. PATIENT TOLERATED AMBULATION WELL. PATIENT IS BACK IN BED RESTING. PATIENT HAS SCDS, TEDHOSE, AND HEEL PROTECTORS IN PLACE. PATIENTS CRYO REFILLED WITH ICE. PATIENTS CRYO APPLIED TO LEFT HIP. PATIENT GIVEN PRN PAIN MEDICATION PER ORDER. FOR 5/10 PAIN. PATIENTS DRESSING IS C/D/I. PATIENT DENIES ANY FURTHER NEEDS. CALL LIGHT IN REACH.
--- NOTE | 2017-12-14 04:43 | NUR ---
PATIENT RESTED WELL THROUGHOUT THE SHIFT. PATIET IS ON A REG DIET, TOLERATING WELL, NO NAUSEA NOTED. PATIENT HAS CRYO, SCDS, HEEL PROTECTORS, AND TEDHOSE ON BILAT LOWER EXT. PATIENT IS WORKING WITH PT/OT. PATIENTS DRESSING ON LEFT HIPS IS C/D/I. PATIENT RECEIVED PRN PAIN MEDICATION X2. PATIENT IS A SBA W/FWW. PATIENT TOLERATES AMBULATION WELL. PATIENT IS AAOX3. PATIENT USES CALL LIGHT APPROPRIATELY.
--- NOTE | 2017-12-14 04:55 | NUR ---
PATIENT CRIED OUT IN PAIN. PATIENT GIVEN SECOND TAB OF PRN PAIN MEDICATION PER ORDER. PATIENT CONTINUES TO REST IN BED WITH TEDHOSE, SCDS, AND CRYO IN PLACE. PATIENTS LEGS REPOSISITIONED. PATIENT CONTINUES TO RATE PAIN 5/10. NO FURTHER NEEDS NOTED. CALL LIGHT IN REACH.
--- NOTE | 2017-12-14 06:00 | NUR ---
PATIENT IS RESTING IN BED WITH EYES CLOSED, RR 17. BREATHING IS EVEN AND UNLABORED. PATIENT APPEARS COMFORTABLE. CRYO, SCDS, HEEL PROTECTORS, AND TEDHOSE IN PLACE. CRYO HAS SUFFICIENT ICE. CALL LIGHT IN REACH.
--- NOTE | 2017-12-14 09:32 | NUR ---
PATIENT DONE WITH PT AND HAVING 8/10 PAIN NOW AND 1 PO NORCO GIVEN.
--- NOTE | 2017-12-14 10:00 | NUR ---
PATIENT HAD AN EPISODE OF NAUSEA AND A LITTLE VOMITING. 4 MG SL ZOFRAN GIVEN.
--- NOTE | 2017-12-14 10:43 | NUR ---
PATIENT'S NAUSEA IS GONE. PAIN IS IN THE LEFT LOWER LEG 6/10, 1 TAB NORCO PO REPEATED.
--- NOTE | 2017-12-14 11:50 | NUR ---
PATIENT'S THIGH HIGH CLAUDE HOSE PLACED AND SCD'S ON. PATIENT'S LEFT LEG WALKING/ FOOT BRACE DELIVERED.
--- NOTE | 2017-12-14 11:58 | NUR ---
PT SITTING IN CHAIR, DOZING ON AND OFF. SHE SMILED AND TOLD ME THT HER LEGS WERE "HURTING". I ASKED ANYWHERE ELSE, NO. PT REQUESTED PRAYER AND I TOLD HER I WOULD LET HER RN KNOW, DENITA I DID. WILL FOLLOW NEEDED
--- NOTE | 2017-12-14 12:05 | NUR ---
PATIENT SITTING UP IN HER CHAIR THIS MORNING. FILLED HER CRYO AROUND 11:00 THIS MORNING. ALSO GOT HER NEW ICE WATER.
--- NOTE | 2017-12-14 14:25 | NUR ---
CALL PLACED TO . PATIENT NAUSEATED AGAIN. 2 EARLY TO GIVE ZOFRAN. VOICEMAIL LEFT FOR TO CALL BACK.
--- NOTE | 2017-12-14 14:40 | NUR ---
1430 CALLED BACK AND GAVE PERMISSION TO GIVE ZOFRAN EARLY. 4MG ZOFRAN GIVEN SL.
--- NOTE | 2017-12-14 14:59 | NUR ---
PATIENT'S LEFT LEG PAIN IS 5/10. NAUSEA IS GONE. PATIENT GOING TO WORK WITH PT AGAIN. 1 PO NORCO GIVEN.
--- NOTE | 2017-12-14 19:00 | NUR ---
PATIENT UP IN RECLINER FOR ALL 3 MEALS TODAY. LUNGS CLEAR AND BOWEL TONES ACTIVE. PATIENT UP WITH PT X2 TODAY AND TOLERTED IT FAIR. PATIENT GIVEN 1 NORCO AFTER AM PT AND VOMITED ABOUT 30 MINUTES AFTER THAT AND WAS GIVEN SL ZOFRAN WHICH WAS EFFECTIVE AND A SECOND NORCO WAS GIVEN AFTER NAUSEA WAS GONE. PATIENT UP THE THE BATHROOM TO VOID X4 TODAY WITH 1PSBA AND WALKER. PATIENT WAS INCONTINENT X1 BEFORE GETTING INTO THE BATHROOM AND FRONT OF ATTENDS WAS SATURATED AND 100MLS MEASURED FROM HAT IN THE BATHROOM. PATIENT HAD A THIRD NORCO IN THE AFTERNOON WHICH WAS EFFECTIVE FOR HER LEFT LEG PAIN. PATIENT IN THIGH HIGH CLAUDE HOSE AND SCD'S WHILE IN THE RECLINER. FOOT BRACE DELIVERED FOR LEFT FOOT DROP AND WAS USED BY PT IN THE AFTERNOON AND USED WHEN PATIENT IS AMBULATING TO THE BATHROOM. OT ALSO IN TO SEE IF PATIENT REMEMBERED HOW TO USE HER ASSIST DEVICE TO PULL ON HER SOCKS AND PATIENT WAS ABLE TO PERFORM THIS FUNCTION. PATTIENT DID HAVE A SECOND EPISODE OF NAUSEA IN THE AFTERNOON AT WHICH TIME WAS CALLED FOR PERMISSION TO GIVE ZOFRAN EARLY. PERMISSION WAS GIVEN AND THE ZOFRAN WAS EFFECTIVE. CBC AND BMP ORDERED FOR 6AM TOMORROW PER TELEPHONE ORDER FROM DR. OLIVARES.
--- NOTE | 2017-12-14 20:00 | NUR ---
RECEIVED REPORT AT 1900, FOUND PT SITTING IN CHAIR WATCHING TV. PT DENIED PAIN AT THAT TIME.
--- NOTE | 2017-12-14 21:44 | NUR ---
VITALS AND I&OS DONE AND CHARTED. HELPED PT INTO BED FROM THE BATHROOM. SCD ON AND CRYO ON. HEEL PROTECTOR ON. PT ASKED FOR A PAIN PILL, I INFORMED HER RN GABRIEL. BEDSIDE TABLE AND CALL LIGHT WITHIN REACH.
--- NOTE | 2017-12-14 22:00 | NUR ---
V/S ARE WDL, HER TEMP WAS 99.0. PT WAS ALSO IN PAIN 03/16, 1TAB OF NORCO WAS GIVEN. ALL LOBES ARE CLEAR, PO INTAKE NEEDS TO BE ENCOURAGED DUE TO LOW URINE OUTPUT. LEFT LEG EDEMA IS +1 BOARDERING +2 [address]ES. CLAUDE HOSES ARE ON. SCD ARE ON WELL. DRESSING ON LEFT HIP IS C/D/I. PT IS WALKING MUCH BETTER WITH BOOT ON HER LEFT LEG. PEDIS PULSES ARE WDL. NO NEW CONCERNS AT THIS TIME.
--- NOTE | 2017-12-15 | NUR ---
PT APPEARS TO BE SLEEPING AT THIS TIME. SO FAR, 2 TAPS OF NORCO HAVE BEEN GIVEN.
--- NOTE | 2017-12-15 02:00 | NUR ---
PT IS STILL SLEEPING AT THIS TIME.
--- NOTE | 2017-12-15 04:00 | NUR ---
ASSISTED PT TO BATHROOM. PT IS NOW UP SITTING IN CHAIR. PT ALSO HAD EMESIS OF 50ML WHEN TRYING TO STAND UP. 4MG OF SL ZOFRAN WAS GIVEN.
--- NOTE | 2017-12-15 05:09 | NUR ---
AT START OF SHIFT PT HAD PAIN 8/10, 1 TAB NORCO WAS GIVEN. WITHIN THE 1.5 HRS, PAIN WAS 10/10. 2ND TAB OF NORCO WAS GIVEN. EDEMA ON LEFT LEG IS +2, DORSALIS PEDIS PULSE IS +2, DRESSING ON LEFT HIP IS C/D/I. PT DID SLEEP FOR A FEW HOURS THIS SHIFT. PT ALSO HAD AN INCREASE IN URINE OUTPUT WHICH IS ADEQUATE NOW. PT ALSO HAD SEVERAL INCONTINENT EPISODES WELL. BOOT FOR FOOT DROP HAS BEEN ON WHILE WALKING. AT 0400 PT WOKE UP AND HAD AN EPISODE OF EMESIS 50ML. 4MG LS ZOFRAN WAS GIVEN. LOBES ARE CLEAR, ABD SOUNDS ARE PRESENT. V/S ARE WDL.
--- NOTE | 2017-12-15 05:22 | NUR ---
I&OS DONE AND CHARTED. CRYO FILLED. GARBAGES EMPTIED. PT RESTING IN HER CHAIR. BEDSIDE TABLE AND CALL LIGHT WITHIN REACH.
--- NOTE | 2017-12-15 05:52 | NUR ---
HELPED PT FROM THE BATHROOM TO HER CHAIR WITH HER FWW. CRYO HOOKED UP. BEDSIDE TABLE AND CALL LIGHT WITHIN REACH. BROUGHT HER DENTURES TO HER IN THE CHAIR, DUE TO THE FACT THAT HER LEFT FOOT WAS HURTING TO BAD FOR HER TO ALUMINUM POOL INSTALLER THE BATHROOM TO PUT THEM IN. PT NEEDS NOTHING ELSE AT THIS TIME.
--- NOTE | 2017-12-15 07:50 | NUR ---
PATIENT UP IN CHAIR, LEGS ELEVATED, EYES CLOSED. ROOM TIDIED, CLOSED. ROOM TIDIED, GARBAGE EMPTIED AND BED MADE. CRYO FILLED
--- NOTE | 2017-12-15 09:46 | NUR ---
PATIENT IN WHEELCHAIR WAITING TO BE TAKEN FOR XRAY. VITALS AND I/OS DONE. ROOM TIDIED, GARBAGE TAKEN.
--- NOTE | 2017-12-15 10:15 | NUR ---
PATIENT IN CT AND NAUSEATED. CALLED DOWN BY RADIOLOGY STAFF TO GIVE NAUSEA MEDICATION. PATIENT HAD NOT VOMITED WHEN I ARRIVED AND GAVE PATIENT 4MG SL ZOFRAN. RADIOLOGY STAFF INFORMED ME THEY WOULD CALL IF THE PATIENT HAD ANYMORE N/V. I CAME BACK TO MED/SURG AND PATIENT TO RETURN ONCE CT IS DONE.
--- NOTE | 2017-12-15 10:55 | NUR ---
PATIENT WAS RETURNED TO MED/SURG BY RADIOLOGY STAFF AND PATIENT HAD VOMITED ALL OVER IN RADIOLOGY AND COULD NOT DO THE SCAN. WAS CALLED BY RADIOLOGY AND HE HAS NOW CALLED TO CONSULT WITH DR. LERMA.
--- NOTE | 2017-12-15 11:30 | NUR ---
STANDBY ASSIST FROM WHEELCHAIR TO SHOWER CHAIR. DARNELL ROBERTSON IN BR ALSO. PATIENT ENJOYED SHOWER. BACK TO CHAIR, SCDs ON, LEGS ELEVATED. CRYO FULL OF ICE, ON HIP. WARM BLANKET GIVEN. CALL LIGHT IN REACH.
--- NOTE | 2017-12-15 14:04 | NUR ---
PATIENT HAS NOT BEEN SICK TO HER STOMACH SINCE RETURNING FROM CT AND SAYS THAT SHE IS COMFORTABLE AND NOT NEEDING ANYTHING FOR PAIN AT THIS TIME. PT IS HERE TO WORK WITH THE PATIENT AT THIS TIME.
--- NOTE | 2017-12-15 14:07 | NUR ---
I/OS DONE. DYLAN JOYCE AND PT IN ROOM WITH PATIENT.
--- NOTE | 2017-12-15 15:34 | NUR ---
PATIENT USED HER CALL LIGHT AND INFORMED THIS NURSE THAT SHE WAS HAVING 8/10 LOWER LEFT LEG PAIN ACROSS THE OSMAN. 1 PO NORCO GIVEN WITH PUDDING. PATIENT SITTING IN RECLINER AT THIS TIME.
--- NOTE | 2017-12-15 16:58 | NUR ---
PATIENT HAS BEEN MEDICATED WITH 1 NORCO TWICE TODAY WITH SUCCESSFUL RELIEF OF PAIN. DISCUSSED WITH PATIENT DRINKING HER MIRALAX SLOWLY THIS AM AND SHE HAD NO NAUSEA THIS AM WITH MEDS. PATIENT WENT TO CT FOR 929 SCHEDULE TEST, BUT BECAME NAUSEATED IN RADIOLOGY AND I WENT DOWN AND GAVE 4MG SL ZOFRAN. STAFF THERE WAITED 15 MINUTES PER DOCUMENTATION AND THEN HELPED THE PATIENT TO A PRONE POSITION ON THE CT TABLE AND SHE BECAME NAUSEATED AGAIN AND VOMITED A LARGE AMOUNT PER DOCUMENTATION AND STARTED WEEPING AND DID NOT WANT TO CONTINUE WITH THE TEST. PATIENT RETURNED TO MED/SURG AND WAS BATHED AND CLOTHES CHANGED. CLAUDE HOSE WERE COVERED IN EMESIS, SO THEY WERE DIS NEW MEDIUM THIGH HIGH CLAUDE HOSE PLACED ON PATIENT. THESE NEED TO BE MONITORED CLOSELY PATIENT'S LEGS ARE VERY PUFFY AND SOFT AND IF THE TEDS WILL ROLL AND CUT INTO HER LEGS. PATIENT IS CURRENTLY EATING DINNER. WAS JUST CONTACTED AND ORDERS GIVEN TO TRY AND GET PATIENT SCHEDULED FOR CT AGAIN ON MONDAY OR MONDAY OF NEXT WEEK. REPORT GIVEN TO DYLAN MURRELL.
--- NOTE | 2017-12-15 17:45 | NUR ---
PATIENT SITTING IN CHAIR, DIDN'T CARE FOR DINNER, THIS MEDICARE SALES REPRESENTATIVE ORDERED A DISH OF ICE CREAM FOR HER. I/OS DONE. CALL LIGHT IN REACH
--- NOTE | 2017-12-15 20:00 | NUR ---
RECEIVED REPORT AT 1900, FOUND PT SITTING IN CHAIR WATCHING TV. SHE DENIED PAIN AND N/V. PT OVERALL LOOKES MUCH BETTER TODAY.
--- NOTE | 2017-12-15 22:00 | NUR ---
V/S ARE WDL, EDEMA ON LEFT LEG IS STILL +2, BOOT FOR FOOT DROP HAS TO BE TAPED WHILE ON BECAUSE THE STRAPS HAVE COME OFF. PT NEEDS A NEW BOOT TOMORROW. PEDIS PULSES ARE +2 AND TOES ARE WARM TO TOUCH. LEFT HIP DRESSING IS C/D/I. ALL LOBES ARE CLEAR, ABD SOUNDS ARE PRESENT. PT OVERALL SEEMS A BIT STRONGER THAN LAST NIGHT. PT STATED THAT SHE HAS SOME PAIN BUT DID NOT WANT ANY PAIN MEDICATION AT THIS TIME. NO NEW COCNERNS SO FAR. PT IS IN BED TRYING TO SLEEP.
--- NOTE | 2017-12-16 | NUR ---
PT RECEIVED ANOTHER TAB OF NORCO DUE TO PAIN IN HER RIGHT LEG. RIGHT LEG WAS ASSESSED AND ALL WAS WDL. WILL CONTINUE TO MONITOR.
--- NOTE | 2017-12-16 02:53 | NUR ---
SPENT THE LAST 45MIN IN PT ROOM. ASSISTED PT TO TOILET AND BACK TO CHAIR. PT ALSO BRUSHED HER DENTURES AND WASHED HER FACE. PT HAS PAIN 10/10 BUT IT IS TOO EARLY TO TRANSITIONS MANAGER HER ANY PRN NORCO. I HOPE THE CHANGE IN POSITION FROM BED TO CHAIR WILL HELP WITH HER PAIN SOME. CLAUDE-HOSES ARE INSPECTED AND ADJUSTED Q 2HRS. SCD'S ARE ON AND SO ARE HEEL PROTECTORS. URINE OUTPUT IS ADEQUATE AND SO IS HER PO INTAKE IN REGARDS TO FLUIDS. PEDIS PULSES ARE +2, EDEMA IN LEFT LEG IS +2 OVERALL, DRESSING IS STILL C/D/I. WILL CONTINUE TO MONITOR PAIN.
--- NOTE | 2017-12-16 04:00 | NUR ---
PT AT THIS TIME IS SLEEPING IN CHAIR.
--- NOTE | 2017-12-16 05:34 | NUR ---
AT START OF SHIFT PT HAD SOME PAIN ISSUES. SO FAR THIS SHIFT PT HAS HAD 2 TABS NORCO AND 4MG ZOFRAN 4MG SL. PT AT AROUND 0300 FELL ASLEEP. V/S ARE WDL, URINE OUTPUT IS ADEQUATE. EDEMA IN LEFT LEG HAS NOT CHANGED, IT IS A +2, CLAUDE HOSES ARE ON, SCD'S ARE ON, KRYO TO LEFT HIP. ALL LOBES ARE CLEAR. PEDIS PULSES ARE +2, DRESSING ON LEFT HIP IS C/D/I. CLAUDE HOSES HAVE TO BE ADJUSTED Q 2HRS IN ORDER TO ENSURE THAT THEY DO NOT DAMAGE PT SKIN. ALSO, PT NEEDS A NEW BOOT BECAUSE THE STRAPS HAVE FALLEN OFF. I HAD TO TAPE IT IN ORDER FOR IT TO STAY ON. NO OTHER CONCERNS NOTED SO FAR.
--- NOTE | 2017-12-16 06:12 | NUR ---
I&OS DONE AND CHARTED. BEDSIDE TABLE AND CALL LIGHT WITHIN REACH.
--- NOTE | 2017-12-16 07:57 | NUR ---
PT DROWSY THIS AM BUT ORIENTED AND RESPONDS APPROPRIATELY TO VERBAL STIMULI. PT DENIES PAIN OR NAUSEA. WORKING ON EATING BREAKFAST. LEFT HIP DRESSING CDI. TEDS/SKIN ASSESSED. PT SITTING UP IN RECLINER. CALL LIGHT WITHIN REACH.
--- NOTE | 2017-12-16 09:39 | NUR ---
PT IS SITTING UP IN CHAIR WITH CALL LIGHT IN REACH. PT DID NOT NEED ANYTHING AT THE MOMENT
--- NOTE | 2017-12-16 11:05 | NUR ---
JARRETT MCDANIELA TAKING PT FOR WALK IN WHEELCHAIR TO GET OUT OF ROOM FOR A WHILE.
--- NOTE | 2017-12-16 11:28 | NUR ---
PT WAS FEELING DISCOURAGED AND SHUT IN, NURSE NYASIA ASKED THAT I TAKE HER OUTSIDE TO CHEER HER UP. PT TRANSFERED TO WHEELCHAIR WITH HER WALKER. THEN PT WAS WHEELED TO THE FRONT AND DOWN THE PATH TO THE POND ADN THEN BACK UP. PT IS NOW BACK IN HER ROOM WORKING WITH PHYSICAL THERAPY. PT ASKED FOR A PAIN PILL, NURSE SERA.
--- NOTE | 2017-12-16 11:30 | NUR ---
PT RETURNED TO ROOM. SITTING IN RECLINER. REPORTS FEELING BETTER AFTER HER WALK. CALL LIGHT WITHIN REACH.
--- NOTE | 2017-12-16 13:00 | NUR ---
PT ATE MOST OF LUNCH, OANH WELL. SLEEPING OFF AND ON IN RECLINER. CAREGIVER VISITNG. PT DENIES NEEDS OR CONCERNS. CALL LIGHT WITHIN REACH.
--- NOTE | 2017-12-16 15:21 | NUR ---
PT RESTING IN RECLINER. EYES CLOSED, RESP EVEN AND UNLABORED.
--- NOTE | 2017-12-16 17:27 | NUR ---
PT SITTING UP EATING DINNER INDEPENDENTLY, OANH WELL. DENIES PAIN OR OTHER CONCERNS. CALL LIGHT WITHIN REACH.
--- NOTE | 2017-12-16 17:43 | NUR ---
PT IS SITTING UP IN CHAIR WITH CALL LIGHT IN REACH. PT DID NOT NEED ANYTHING AT THE MOMENT
--- NOTE | 2017-12-16 19:00 | NUR ---
BEDSIDE REPORT RECEIVED FROM OFFGOING RN. PT SITTING UP IN CHAIR RESTING WITH EYES CLOSED. PT APPERAS TO BE SLEEPING. DOES NOT WAKE WHILE WRTIER IN ROOM.
--- NOTE | 2017-12-16 19:56 | NUR ---
ASSISTED PATIENT TO THE BATHROOM USING WALKER AND BACK TO CHAIR. PATIENT DID PM CARE. DENTURES SOAK IN THE CONTAINER. PATIENT C/O PAIN ON LEFT FOOT. DYLAN YOUNG NOTIFIED AND WENT TO CHECK THE PATIENT.
--- NOTE | 2017-12-16 20:44 | NUR ---
PT REPORTS PAIN 03/16. PRN NORCO ADMINISTERED. PT ASSESSMENT COMPLETE. BRUISE PRESENT TO MID BACK. TELFA AND COBAN TO L WRIST. MEPILEX AND OPSITE TO L HIP C/D/I. CMS INTACT TO BLE'S. BRACE REMOVED FROM L FOOT. CLAUDE HOSE PRESENT TO L LEG TO THIGH HIGH, ALL WRINKLES REMOVED. PT ASSISTED TO WALK INTO BATHROOM WITH FWW, WHERE PT HAD MED SIZED BM. PT ASSISTED BACK TO BED, WARM BLANKET PROVIDED. PT DENIES OTHER NEEDS. PT'S HEARING AIDE REMOVED AND BATTERY PLACED ON PARQUETRY LAYER. HEARING AIDE UNIT PLACED NEXT TO PARQUETRY LAYER. PT CALL LIGHT IN LAP.
--- NOTE | 2017-12-16 22:10 | NUR ---
PT RESTING IN BED WITH EYES CLOSED. RESPIRATIONS EVEN AND UNLABORED. PT APPEARS TO BE SLEEPING. PT'S TV TURNED OFF, PT DOES NOT WAKE WHILE DISASTER DIRECTOR IN ROOM. CALL LIGHT WITHIN PT'S REACH, ROOM WITHIN VIEW OF THE NURSES STATION WITH CURTAIN OPEN.
--- NOTE | 2017-12-16 23:46 | NUR ---
PT RESTING IN BED WITH EYES CLOSED. RESPIRATIONS EVEN AND UNLABORED. PT APPEARS TO BE SLEEPING. CALL LIGHT WITHIN REACH.
--- NOTE | 2017-12-17 04:33 | NUR ---
PT UP TO USE THE BATHROOM, WASHED FACE, BRUSHED MOUTH, AND INSERTED DENTURES. PT ASSISTED TO SIT IN CHAIR. PT REQUESTING PAIN MEDICATION, RATES PAIN 8/10. PAIN MEDICATION PROVIDED. IMMEDIATELY AFTER ADMINISTRATION OF PAIN MEDICIATION PT REPORTS FEELING NAUSEATED. PT PROVIDED WITH EMESIS BAG, APPROXIMATELY 100 ML OF EMESIS PRESENT. PAIN PILL NOT PRESENT IN EMESIS. PRN ZOFRAN ADMINISTERED. PT REPORTS NEEDING TO HAVE BM. PT ASSISTED TO BSC BY DARNELL.
--- NOTE | 2017-12-17 05:51 | NUR ---
PT SLEPT MAJORITY OF THE SHIFT. PAIN MEDICATION X2. EMESIS X 1, PRN ZOFRAN ADMINISTERED. CLAUDE HOSE AND BRACE TO LLE. DRESSING:MEPILEX AND OPSITE TO L HIP. DRESSING C/D/I. 1 PA WITH FWW. BM THIS AM. NO IV ACCESS.
--- NOTE | 2017-12-17 07:26 | NUR ---
REPORTED RECEIVED FROM DYLAN BENTLEY. PT SITTING UP IN CHAIR. APPEARS TO BE SLEEPING. RESPIRATIONS UNLABORED. CALL LIGHT ON LAP.
--- NOTE | 2017-12-17 07:40 | NUR ---
PATIENT UP IN CHAIR, STANDBY ASSIST TO BR WITH FWW AND BACK TO CHAIR. AM CARE AT SINK. STUDENT LANI IN WITH MEDS. STAFF SOFTWARE ENGINEER REVA APPLIED ICE PACK TO LEFT OSMAN. REPLACED THIGH HIGH CLAUDE HOSE WITH KNEE HIGH. AND FOOT BRACE BACK ON, LEGS ELEVATED. CRYO FILLED AND ON HIP. PATIENT BECAME TEARY SHE WAS TALKING, "IM TRYING TO STAY STRONG, BUT IT HURTS" SET UP FOR BREAKFAST, THIS STAFF SOFTWARE ENGINEER DIVIDED IT INTO 1/2 PER PATIENT REQUEST.
--- NOTE | 2017-12-17 08:06 | NUR ---
PT UP TO BATHROOM WITH DARNELL VEGAS. WALKS WELL WITH FWW. BACK TO CHAIR. CLAUDE/FOOT DROP BOOT IN PLACE. ICE PACK ON LEFT OSMAN. CRYO TO LEFT HIP. PT RATED PAIN 4/10, MORE PAIN WITH TOUCH/MOVEMENT OF LEFT LEG. PT SITTING UP IN CHAIR EATING BREAKFAST. DARNELL VEGAS BROKE INTO 2 SERVINGS PER PT REQUEST. PT HAS MINIMAL APPETITE. WILL CONTINUE TO ENCOURAGE INTAKE. DENIES OTHER NEEDS AT THIS TIME.
--- NOTE | 2017-12-17 09:03 | NUR ---
took patient on a .5 walk she did okay, she is currently in her chair with her cryo cuff!
--- NOTE | 2017-12-17 09:30 | NUR ---
PATIENT UP IN CHAIR, EYES CLOSED. VITALS AND I/OS DONE. PATIENT AGREED TO TAKING A SHORT WALK OUTSIDE TODAY FOR SOME FRESH AIR. CALL LIHT IN REACH
--- NOTE | 2017-12-17 10:00 | NUR ---
THIS CLASSIFIED COPY CONTROL CLERK TOOK PATIENT FOR A SHORT VISIT OUTSIDE FOR FRESH AIR, PATIENT WAS IN WHEELCHAIR AND TOLERATED WELL. STANDBY ASSIST IN BR ONCE BACK AT ROOM. PATIENT WILL CALL WHEN FINISHED.
--- NOTE | 2017-12-17 11:28 | NUR ---
PT UP IN CHAIR WITH LEGS ELEVATED. WAS RESTING WITH EYES CLOSED. EASILY AROUSED. AFTERNOON CARAFATE GIVEN. PT STATED SHE WAS TIRED FROM PHYSICAL THERAPY AND WOULD LIKE TO REST.
--- NOTE | 2017-12-17 13:29 | NUR ---
PT UP IN CHAIR VISITING WITH CAREGIVER. APPEARS COMFORTABLE.
--- NOTE | 2017-12-17 14:08 | NUR ---
PATIENT UP IN CHAIR, LEGS ELEVATED. CRYO ON. CAREGIVER WAS UP FOR VISIT, NOW GONE. PATIENT REPORTS SHE CAN'T WAIT FOR HER LEG TO GET BETTER BECAUSE SHE AND HER CARGIVER HAVE PLANS AT THE COAST. CALL LIGHT IN REACH. I/OS RECORDED NO OTHER NEEDS
--- NOTE | 2017-12-17 14:54 | NUR ---
PATIENT USED CALL LIGHT TO REPORT HER PAIN WAS 7/10. THIS MILITARY COMMUNICATIONS SPECIALIST UNWRAPPED HER LEFT LEG, ADJUSTED CLAUDE HOSE AND REWRAPPED LEG. CRYO ON RN JAMES NOTIFIED. CALL LIGHT IN REACH
--- NOTE | 2017-12-17 16:48 | NUR ---
PT RESTING WITH EYES CLOSED. RESPIRATIONS EVEN AND UNLABORED. EASILY AROUSED. LEGS ELEVATED. CRYO IN PLACE AND REFILLED. PT RATES PAIN 9/10 IN FOOT. CANNOT HAVE PAIN MEDS. DENIED ICE PACK. LEG REPOSITIONED. DENIES OTHER NEEDS AT THIS TIME.
--- NOTE | 2017-12-17 17:28 | NUR ---
PT HAD UNEVENTFUL DAY. NO NAUSEA OR EMISIS, BUT APPETITE REMAINS MINIMAL. PAIN HIGH 9/10, RELIEVED BY NORCO X2, CRYO/ICE PACK, AND FREQUENT REPOSITIONING. PT ANXIOUS AT TIMES. EASILY REASSURED. RODE IN WHEELCHAIR OUTSIDE FOR WALK. WALKED 1 LAP WITH PHYSICAL THERAPY. NPO @ MIDNIGHT FOR IMAGING TOMORROW.
--- NOTE | 2017-12-17 17:39 | NUR ---
PATIENT WATCHING TV IN CHAIR. I/OS RECORDED. PATIENT STILL WORKING ON DINNER. FRESH ICE WATER GIVEN, GARBAGE EMPTIED. CALL LIGHT IN REACH
--- NOTE | 2017-12-17 19:00 | NUR ---
BEDSIDE REPORT RECEIVED FROM OFFGOING RN. PT SITTING UP IN CHAIR WITH CALL LIGHT IN REACH.
--- NOTE | 2017-12-17 21:25 | NUR ---
PT ASSESSMENT COMPLETE. PT RATES PAIN 8/10, DENIES NAUSEA OR SOB. SCHEDULED MEDICATIONS ADMINISTERED. PT ABLE TO TAKE PILLS WITH SMALL SIPS OF WATER. APPROXIMATELY 2 MINIUTES AFTER MEDICATION ADMINISTRATION PT HAD APPROXIMATELY 200 ML OF EMESIS. PRN ZOFRAN ADMINISTERED. DRESSING TO L HIP C/D/I. CLAUDE HOSE TO L LEG, NO WRINKLES PRESENT. PEDAL PULSES PALPABLE AND CMS INTACT TO BLES. PT DENIES OTHER NEEDS AT THIS TIME. PT SITTING UP IN BED WATCHING TV. CALL LIGHT WITHIN PT'S REACH. ROOM IN VIEW OF NURSES STATION WITH CURTAIN OPEN.
--- NOTE | 2017-12-17 23:10 | NUR ---
ASSISTED PATIENT TO USE THE BATHROOM USING WALKER. LEFT FOOT BRACE ON. PATIENT DID WASH FACE HANDS AND BRUSH HER GUMS AND SOAKED DENTURES. PATIENT IS IN BED, CALL LIGHT WITHIN REACH. PATIENT C/O LEFT FOOT PAIN. RN NOTIFIED. NURSE WENT AND CHECKED THE PATIENT.
--- NOTE | 2017-12-17 23:45 | NUR ---
PT RESTING IN BED WITH EYES CLOSED. RESPIRATIONS EVEN AND UNLABORED. PT APPEARS TO BE SLEEPING. PT DOES NOT WAKE WHILE TELEMETRY TECHNICIAN IN DOORWAY. CALL LIGHT WITHIN REACH. ROOM IN VIEW OF NURSES STATION WITH CURTAIN OPEN.
--- NOTE | 2017-12-18 01:37 | NUR ---
PT RESTING IN BED WITH EYES CLOSED. RESPIRATIONS EVEN AND UNLABORED. PT APPEARS TO BE SLEEPING. CALL LIGHT WITHIN REACH. ROOM WITHIN VIEW OF NURSES STATION WITH CURTAIN OPEN.
--- NOTE | 2017-12-18 03:28 | NUR ---
ASSISTED PATIENT FROM THE BATHROOM USING WALKER. PATIENT HAD A MEDIUM SOFT BOWEL MOVEMENT. PATIENT DID BRUSH HER GUMS, WASH FACE AND PUT ON HER DENTURES. PATIENT IS BACK ON THE CHAIR. CALL LIGHT WITHIN REACH.
--- NOTE | 2017-12-18 07:17 | NUR ---
REPORT RECEIVED FROM DYLAN NICHOLSON. PT HAS BEEN UP IN CHAIR SINCE 2-3AM. PT DENIES PAIN AND APPEARS COMFORTABLE. NPO SINCE MIDNIGHT. WILL GO TO CT THIS AM.
--- NOTE | 2017-12-18 07:32 | NUR ---
PATIENT SITTING UP IN BEDSIDE RECLINER. CRYO REFILLED WITH ICE, PATIENT WASHED HANDS AND FACE WITH WARM WASH CLOTH. PATIENT'S DENTURES SOAKING IN BATHROOM. CALL LIGHT IN REACH. NO OTHER NEEDS AT THIS TIME.
--- NOTE | 2017-12-18 08:16 | NUR ---
PT UP IN CHAIR WITH LEGS ELEVATED. BILAT THIGH HIGH CLAUDE HOSE IN PLACE. BRACE CURRENTLY OFF. CRYO IN PLACE. PT RATED PAIN 9/10, REPOSITIONED, REPORTED RELIEF FROM CLAUDE HOSE. WAITING FOR CT THIS AM.
--- NOTE | 2017-12-18 09:41 | NUR ---
PATIENT SITTING UP IN BEDSIDE RECLINER. PATIENT'S CLAUDE HOSE CHECKED FOR WRINKLES, CRYO REAPPLIED TO HIP. PATIENT CALL LIGHT IN REACH. NO OTHER NEEDS AT THIS TIME.
--- NOTE | 2017-12-18 10:04 | NUR ---
PT UP WALKING WITH PHYSICAL THERAPY.
--- NOTE | 2017-12-18 10:30 | NUR ---
TALKED TO PT ABOUT DISCHARGE OPTIONS AND OFFERED TO PUT IN CONSULT FOR DISCHARGE PLANNING. PT ASKED SEVERAL QUESTIONS REGARDING HER CONDITION AND WHAT SHE WAS GOING TO DO UPON GOING HOME. CALLED LUANA WITH DC PLANNING AND SHE STATED SHE WOULD COME TALK TO PT.
--- NOTE | 2017-12-18 11:42 | NUR ---
PT UP IN CHAIR WITH LEGS ELEVATED. CLAUDE ROSENTHAL ON. CRYO TO LEFT HIP. PT HAS WORKED WITH PT/OT THIS AM. DC CUSTOMER SERVICE DRIVER CLARICE HAS BEEN IN TO SPEAK WITH PT. PT FEELS MUCH BETTER AFTER DISCUSSING OPTIONS WITH CLARICE. RATES PAIN 8/10, REPOSITIONED. APPEARS COMFORTABLE. NPO FOR IMAGING TO BE DONE AT 2:30.
--- NOTE | 2017-12-18 11:51 | NUR ---
STAFF STATES THAT DR OLIVARES INDICATED HE WOULD DISCHARGE PATIENT TOMORROW. PATIENT DOES NOT FEEL SHE CAN RETURN TO OWN APARTMENT WITH CAREGIVER CHECKING ON HER DAILY. SHE WOULD LIKE TO LOOK AT ASSISTED LIVING OPTIONS. WE DISCUSSED FACILITIES, INSURANCE AND COST. PATIENT STILL WOULD LIKE TO PURSUE THIS. SHE STATES SHE THINKS SHE WON'T BE ABLE TO DO MUCH FOR HERSELF ANYMORE SHE WAS HAVING ISSUES BEFORE THE SURGERY. PATIENT WOULD LIKE ME TO TALK WITH HER CAREGIVER WHEN SHE COMES TODAY, ALSO. I CALLED HER CHW AT [facility] AND LEFT A MESSAGE. I WILL HAVE CHW HELP WITH OPTIONS AND GETTING PATIENT INTO ASSISTED LIVING.
--- NOTE | 2017-12-18 12:17 | NUR ---
PT SITTING IN CHAIR, DOZING AND READING THE PAPER. SHE STILL REFERS TO ME "DR" EVEN THOUGH I CONTINUALLY TELL HER I AM THE STRATEGIC PARTNERSHIP SPECIALIST. SHE EXPRESSED CONCERN RE HER CAREGIVER BEING UP TO DATE ON HER CONDITION. I INFORMED HER I WILL HAVE THE RN MAKE SURE SHE IS NOTIFIED. SHE THANKED ME, WILL FOLLOW NEEDED
--- NOTE | 2017-12-18 12:53 | NUR ---
PATIENT IN BEDSIDE RECLINER, FLOOR WORKER TRANSFER BAY AND FAMILY IN ROOM. CALL LIGHT IN REACH. NO OTHER NEEDS AT THIS TIME.
--- NOTE | 2017-12-18 13:15 | NUR ---
SPOKE WITH PCP OFFICE LUNA HERNANDEZ WHO IS COMING TO SEE PATIENT. WE DISCUSSED THAT PATIENT IS WORRIED ABOUT GOING HOME AND IS ASKING ABOUT ASSITED LIVING PLACEMENT. WE DISCUSSED THAT THIS MAY BE A TEMPORARY SITUATION UNTIL SHE IS MORE STABLE WITH ACTIVITIES. SPOKE WITH YUMIKO PHYSICAL THERAPIST. SHE STATES IF PATIENT CAN'T DO SNF, PERHAPS HOME HEALTH PT AND OT CAN BE DONE. SHE STATES PATIENT STILL NEEDS MUCH THERAPY.
--- NOTE | 2017-12-18 13:21 | NUR ---
COMMUNITY HEALTH WORKER MARY THORNE TO TALK WITH PT. CAREGIVER AND FAMILY IN ROOM. PT SITTING UP IN CHAIR WITH LEGS ELEVATED. CALL LIGHT ON LAP.
--- NOTE | 2017-12-18 13:30 | NUR ---
SPOKE WITH PATIENT, CAREGIVER ALEJANDRA AND CARMEN. WITH ME IS DR BAIRON HERNANDEZ'S CHW. I DISCUSSED WITH THEM THE CONCERNS THAT PATIENT HAD THIS MORNING ABOUT GOING HOME SOON. BOTH CARMEN AND ROSELINE BECAME PASSIONATE ABOUT THE FACT THAT PATIENT HAS TOLD THEM IN THE PAST SHE DOESN'T WANT TO BE IN ANY FACILITY. DISCUSSED THAT SAFETY IS A CONCERN FOR HER AT THIS TIME. THAT THERAPISTS ARE STATING SHE NEEDS MORE WORK. EXPLAINED THAT FALLING IS A REAL RISK, ESPECIALLY IF SHE IS ALONE FOR ANY LENGTH OF TIME. CARMEN STATES "WELL SHE CAN MAKE HER OWN DECISIONS". HER CAREGIVER BECAME QUITE ANGRY, YELLING A COUPLE TIMES THAT "NO, SHE IS GOING HOME, PERIOD". I EXPLAINED THAT SHE MIGHT NEED MORE HELP THAN SHE HAS AT THIS TIME AND PERHAPS A STAY AT ASSISTED LIVING TO CONTINUE THERAPY FOR A SHORT STINT MIGHT BE SAFER PLAN. SHE THEN BECAME VERY UPSET SAYING "I'LL BE THERE ALL THE TIME". EXPLAINED THAT SHE ISN'T THERE 24/HOURS A DAY AND ITS THE TIME ALONE WE WOULD BE CONCERNED WITH. SHE THEN STATES "I'LL STAY AROUND THE CLOCK THEN". I TRIED TO EXPLAIN THAT IS HARD TO DO FOR ANYONE, LET ALONE A CAREGIVER WITH OTHER RESPONSIBILITIES. SHE STATES "[facility] SAID THEY WILL PAY FOR ANOTHER PERSON". WE DISCUSSED THAT MARY WILL BE WORKING WITH [facility] AND HOPEFULLY SOMETHING LIKE THAT CAN BE DONE, BUT SOMETIMES THAT TAKES TIME. PATIENT IS IN AGREEMENT THAT MARY CAN HELP THEM. CAREGIVER AGAIN VERY ANGRY WITH THE SITUATION. MARY AND I BOTH EXPLAINED THAT SHE CAN STILL HELP WITH PATIENT IF THAT IS WHAT [facility] WILL PAY FOR. SHE BECAME VERY UPSET AGAIN WITH THE PLAN. PATIENT COVERED HER EARS AND SHOOK HER HEAD SEVERAL TIMES. I EXPLAINED THAT ALL WE CAN DO IS GIVE HER THE OPTIONS OF WHAT IS AVAILABLE AND SHE HAS THE RIGHT TO MAKE THE DECISIONS HERSELF. SHE LOOKED AT CAREGIVER AND SAID "I WANT ALEJANDRA TO KEEP SEEING ME" BUT DID NOT SAY SHE WANTED TO RETURN TO APARTMENT. I AGAIN STRESSED THAT MARY WILL BE WORKING WITH THEM ALONG WITH CASE MANAGEMENT AND WILL WILL MAKE SURE ITS SOMETHING PATIENT WANTS TO DO.
--- NOTE | 2017-12-18 14:33 | NUR ---
patient leaving for xray. Cryo filled. no other needs at this time.
--- NOTE | 2017-12-18 14:37 | NUR ---
PT TO IMAGING VIA WHEELCHAIR. IMAGING TOOK WALKER FOR TRANSFERS
--- NOTE | 2017-12-18 15:59 | NUR ---
PATIENT STILL OUT WITH XRAY, NO OTHER NEEDS AT THIS TIME.
--- NOTE | 2017-12-18 16:20 | NUR ---
PT BACK FROM CT. COULD NOT GET CONTRAST TO SPINAL COLUMN. DR OLIVARES NOTIFIED BY RN ROSS. PT BACK TO CHAIR. GIVEN 1 TAB NORCO FOR PAIN 05/16 WITH PHYSICAL THERAPY. ROBSON IN ROOM WITH PT. DINNER TRAY SET UP.
--- NOTE | 2017-12-18 16:45 | NUR ---
PATIENT SITTING UP IN BEDSIDE RECLINER, CRYO ON AND REFILLED, CLAUDE ROSENTHAL CHECKED FOR WRINKLES. PATIENT EATING DINNER. CALL LIGHT IN REACH. NO OTHER NEEDS AT THIS TIME.
--- NOTE | 2017-12-18 16:57 | NUR ---
MINIMAL CHANGES TODAY. PT HAS CONINUED TO HAVE MINIMAL APPETITE. UOP QS. NO NAUSEA OR EMESIS. NORCO X2 FOR LEG PAIN. WORKED WITH PHYSICAL THERAPY X2. WENT TO CT THIS AFTERNOON AND IT WAS UNSUCCESSFUL. DR OLIVARES IS AWARE. PT HAS BEEN UP IN CHAIR MOST OF DAY WITH THIGH HIGH CLAUDE HOSE AND BRACE ON LEFT LEG.
--- NOTE | 2017-12-18 17:45 | NUR ---
SPOKE WITH PATIENT IN ROOM. PATIENT FINISHING DINNER. DISCUSSED AGAIN THAT MARY LUNA FROM HER PCP OFFICE WILL BE CONTACTING THE [facility] IN REGARDS TO WHAT THEY WILL PAY FOR EXTRA CARE UNTIL SHE FEELS MORE STABLE TO BE ALONE. PATIENT STATES SHE THINKS SHE MIGHT WANT TO "MOVE SOMEWHERE" WHERE THERE IS "MORE HELP" BUT SHE WANTS "[place] TO KEEP SEEING ME". I DISCUSSED THAT SHE CAN REQUEST CONTINUED CARE FROM HER CAREGIVER, OR WHEN SHE RETURNS HOME HER CAREGIVER CAN STILL COME IN. I ALSO REMINDED HER THAT HER CAREGIVER CAN COME SEE HER AND VISIT JUST LIKE SHE DID HERE IN THE HOSPITAL, TOO. PATIENT STATES "GOOD THATS WHAT I WANT". SHE THEN BEGAN TALKING ABOUT THE [place] OF [facility] AND STATED "SHE IS TRYING TO GET ME OUT OF THERE FOR A LONG TIME". I TRIED TO REASSURE PATIENT THAT WE ARE ALL TRYING TO HELP HER DECIDE WHAT SHE WANTS AND THAT SHE, ALONE, CAN MAKE HER DECISION. NO FURTHER QUESTIONS.
--- NOTE | 2017-12-18 18:12 | NUR ---
PATIENT RESTING IN BED WATCHING TV. CALL BUTTON IN REACH. FRESH ICE WATER GIVEN. NO OTHER NEEDS AT THIS TIME.
--- NOTE | 2017-12-18 18:14 | NUR ---
PT IN RECLINER SLEEPING.
--- NOTE | 2017-12-18 19:00 | NUR ---
BEDSIDE REPORT RECEIVED FROM OFFGOING RN. PT SITTING UP IN CHAIR WITH CALL LIGHT WITHIN REACH.
--- NOTE | 2017-12-18 21:00 | NUR ---
PT ASSESSMENT COMPLETE. PT LYING IN BED. STATES THAT PAIN IS WELL CONTROLLED AT THIS TIME. PT DENIES NAUSEA OR SOB. L HIP SHOTWELD OPERATOR, NO DRAINAGE NOTED. THIGH HIGH CLAUDE HOLE IN PLACE BILATERALLY. BRACE PRESENT TO L FOOT. CMS INTACT TO BLE'S. PT DENIES NEEDS AT THIS TIME. HEARING AIDE REMOVED AND PLACED AT BEDSIDE WITH FIELD CROP GROWER. CALL LIGHT WITHIN PT'S REACH. ROOM IN VIEW OF RN STATION WITH CURTAIN OPEN.
--- NOTE | 2017-12-18 21:14 | NUR ---
ASSISTED PATIENT TO THE BATHROOM USING WALKER. PATIENT DID BRUSH HER GUM, SOAK DENTURES, WASH FACE AND HANDS. PATIENT IS BACK IN BED. WARM BLANKET PROVIDED. CALL LIGHT WITHIN REACH.
--- NOTE | 2017-12-18 23:00 | NUR ---
PT UP TO BATHROOM WITH OTHER RN. THIS SOLAR ENERGY SPECIALIST ASSISTED PT BACK TO BED. PT TOLERATED WELL. PT CONTINUES TO STATE THAT PAIN IS WELL CONTROLLED. DENIES OTHER NEEDS AT THIS TIME. CALL LIGHT WITHIN REACH. ROOM WITHIN VIEW OF NURSES STATION WITH CURTAIN OPEN.
--- NOTE | 2017-12-19 00:29 | NUR ---
PATIENT CALLED WANTING HEEL PROTECTOR ON MIGHT RELIEVES THE PAIN. PATIENT STATED FEELS BETTER.
--- NOTE | 2017-12-19 02:08 | NUR ---
PT UTILIZES CALL LIGHT, REPORTS ABDOMINAL UPSET. PRN ZOFRAN ADMINISTERED. PT ASSISTED TO THE BATHROOM WITH 1 PA AND FWW. PT TOLERATED WELL AND ASSISTED BACK TO BED. PT DENIES FURTHER NEEDS. CALL LIGHT WITHIN REACH.
--- NOTE | 2017-12-19 04:08 | NUR ---
PT UP TO USE BATHROOM WITH ARCHAEOLOGIST ASSISTANCE. PT ASSISTED TO SIT IN CHAIR BY THIS MOTOR COACH SUPERVISOR. PT DENIES PAIN, NAUSEA, OR SOB AT THIS TIME. WARM BLANKET PROVIDED. PT DENIES OTHER NEEDS. CALL LIGHT SITTING IN PT'S LAP.
--- NOTE | 2017-12-19 04:25 | NUR ---
PATIENT CALLED TO USE THE BATHROOM. ASSISTED USING WALKER. PATIENT DID A.M. CARE. DENTURES ARE ON. PATIENT IS UP ON THE CHAIR. CALL LIGHT WITHIN REACH.
--- NOTE | 2017-12-19 05:19 | NUR ---
UNEVENTFUL SHIFT. NO REPORTS OF PAIN. ZOFRAN X 1. CRYOCUFF, THIGH HIGH CLAUDE HOSE, BRACE FOR L FOOT IN PLACE. NO IV ACCESS. 1 PA WITH FWW.
--- NOTE | 2017-12-19 07:20 | NUR ---
BEDSIDE HANDOFF REPORT RECEIVED FROM HEALTH CARE COACH RN. PT SITTING IN CHAIR. CRYOCUFF IN PLACE, FOOT DROP BOOT IN PLACE. PT DENIES NEEDS AT THIS TIME.
--- NOTE | 2017-12-19 07:49 | NUR ---
PATIENT SITTING UP IN CHAIR EATING HER BREAKFAST. NO NEEDS AT THIS TIME.
--- NOTE | 2017-12-19 09:20 | NUR ---
PT SITTING IN CHAIR, EATING BREAKFAST. PT DENIES NAUSEA. PT REQUESTIGN ASSISTANCE TO BATHROOM, SBA WITH FWW, VOIDED AND HAD SOFT STOOL. PTON ROOM AIR, LUNG SOUNDS CLEAR. BOWEL TONES ACTIVE, TOLERATING REGULAR DIET. PT RATING PAIN 8/10, GIVEN 1 TAB NORCO. LEFT HIP INCISION OPEN TO AIR, LEIGHTON PRESENT, WITHOUT REDNESS OR DRAINAGE. PT WIHT LEFT FOOT DROP, BOOT IN PLACE, CONTINUES TO BE UNABLE TO DORSIFLEX, PULSE PALPABLE. CLAUDE HOSE AND CRYOCUFF IN PLACE. PT ASKING ABOUT DISCHARGE, DICSUSSED PLAN OF CARE FOR THE DAY. PT DENIES OTHER NEEDS. PROVIDED WITH WARM BLANKET.
--- NOTE | 2017-12-19 10:41 | NUR ---
PATIENT REQUESTING ASSISTANCE TO BATHROOM, PATIENT'S FOOT DROP BRACE APPLIED, PATIENT WITH ONE PERSON ASSIST USING FRONT WHEEL WALKER TO RESTROOM. URINE OUTPUT DOCUMENTED, PATIENT ASSISTED BACK TO CHAIR, FOOT DROP BRACE REMOVED. WARM BLANKETS PROVIDED. PATIENT WITH NO FURTHER QUESTIONS OR CONCERNS.
--- NOTE | 2017-12-19 11:03 | NUR ---
PT SITTING IN CHAIR, SMILING AND CORDIAL. PT MENTIONED THAT SHE DOES NOT HAVE MUCH OF AN APPETITE, BUT WAS ENJOYING HER ROOT BEER! PT MENTIONED THAT WHEN SHE STANDS, HER LEG IS PAINFUL. I WILL PASS THIS ON TO HER RN. PT HAD ME PRAY FOR HER. WILL FOLLOW NEEDED
--- NOTE | 2017-12-19 11:16 | NUR ---
PATIENT RESTING IN BEDROOM CHAIR, PATIENT WITH NO COMPLAINTS OR CONCERNS AT THIS TIME.
--- NOTE | 2017-12-19 12:00 | NUR ---
THIS GAS INSPECTOR ASSISTED PATIENT WITH SHOWER. PATIENT IS INDEPENDENT WITH MOST OF THE SHOWER. NEEDS ASSISTANCE WITH HAIR, BACK AND FEET. LOTION APPLIED TO SKIN WELL. PATIENT DRESSED IN A FRESH GOWN. THIS GAS INSPECTOR ASSISTED PATIENT INTO A WHEELCHAIR AND PUSHED HER OUTSIDE TO GET SOME FRESH AIR. PATIENT STATES IT HELPED A LOT. PATIENT SITTING UP IN CHAIR NOW. CALL LIGHT WITHIN REACH. FRESH ICE WATER. ICE IN CRYO. NO OTHER NEEDS AT THIS TIME.
--- NOTE | 2017-12-19 15:00 | NUR ---
PATIENT SITTING UP IN CHAIR. CALL LIGHT WITHIN REACH. NO OTHER NEEDS AT THIS TIME.
--- NOTE | 2017-12-19 16:07 | NUR ---
PT REQUESTING PAIN MEDICATION. RATING PAIN 7/10 TO LEFT LEG. GIVEN 1 TAB NORCO. PT DENIES OTHER NEEDS ATTHIS TIME. PHYSICAL THERAPY AT BEDSIDE.
--- NOTE | 2017-12-19 16:47 | NUR ---
PT ASSISTED FROM BATHROOM BACK TO CHAIR. CRYOCUFF IN PLACE. CLAUDE ROSENTHAL ADJUSTED, PULLED UP THIGH. PT DENIE SOTHER NEEDS AT THIS TIME.
--- NOTE | 2017-12-19 17:30 | NUR ---
PT ON ROOM AIR, LUNG SOUNDS CLEAR. PT TOLERATING REGULAR DIET, DENIED NAUSEA TODAY. PT UP WITH SBA WITH FWW, FOOT DROP BOOT WHILE AMBULATING. PT PAIN CONTROLLED WITH PRN NORCO X3. WITHOUT IV ACCESS. INCISION OPEN TO AIR, WNL. CLAUDE HOSE AND CRYOCUFF. VOIDING QS, HAD BM TODAY.
--- NOTE | 2017-12-19 17:48 | NUR ---
CLARICE PROFESSOR OF GERMAN, MYSELF PROFESSOR OF GERMAN, AND MARY ADKINS CHW FROM [facility], VISITED WITH THE PT REGARDING THE FACT THAT SHE TOLD STAFF YESTERDAY THAT SHE IS AFRAID TO GO HOME WITH JUST HER CAREGIVER. ALSO SEVERAL STAFF MEMBERS HAVE ALSO VOICED SAFETY CONCERNS OVER HER GOING HOME ON HER OWN. PT STATES THAT HER CAREGIVER ALEJANDRA WILL BE THERE FOR HER. WE SAID ALEJANDRA HAS TO SLEEP AT SOME POINT OTHERWISE IT WILL BE BAD ENOUGH FOR HER TO TAKE CARE OF HERSELF LET ALONE YOU. SHE ALSO MAY NOT BE ABLE TO DO ALL THE PERSONAL THINGS YOU NEED DONE. WE TRIED TO EXPLAIN HOW FRAGILE SHE IS AND THAT GOING TO AN ASSISTED LIVING FACILITY WOULD BE SAFER THERE IS 24 HOUR A DAY CAREGIVERS. PT KEPT SAYING SHE WISHED ALEJANDRA WAS THEN SHE COULD MAKE A DECISION. WE DID REASSURE KELLI THAT ALEJANDRA COULD VISIT HER ANYTIME WHILE PT WAS AT AN ASSISTED LIVING FACILITY. ALSO INFORMED HER THAT HER [facility] JOB BOSS WAS GOING TO COME SEE HER TODAY. SHE SAID THAT WOULD BE GOOD. CALLED AND SPOKE WITH VIRGEN AT [facility]-SHE STATED THEY WOULD COME UP AND DO AN EVAL ON KELLI AND SEE IF SHE IS APPROPRIATE FOR THEIR FACILITY. STATES THEY WILL BE HERE AROUND 10 AM TOMORROW TO TALK WITH PT. ALEJANDRA AND [facility] WORKER HERE AT THE SAME TIME AND KELLI TOLD HER SHE IS NOT GOING TO A FACILITY SHE IS GOING HOME. SHE ATTEMPTED TO TALK HER INTO GOING TO A FACILTIY AND SHE STILL SAID SHE IS GOING HOME. TALKED WITH MARY CARRASCO FROM DR BENÍTEZ OFFICE AND SHE STATED SHE HAD TALKED WITH THE [facility] WORKER WHO STATES SHE THINKS THE PT IS APPROPRIATE FOR [facility] HOWEVER IS REFUSING. SHE STATES THAT BECAUSE OF THE PT INSISTANCE ON GOING HOME THAT WE HAVE NO OTHER CHOICE BUT TO LET HER GO HOME, THAT WAY [facility] STATE THEY CAN COME REEVALUATE HER AND GET HER THE HELP SHE NEEDS. CALLED AND SPOKE WITH DR OLIVARES REGARDING THIS. HE STATED OK.
--- NOTE | 2017-12-19 19:05 | NUR ---
RECEIVED REPORT FROM DAY SHIFT RN. PATIENT IS CURRENTLY IN THE RESTROOM WITH MEDICAL CENTER REPRESENTATIVE. NO NEEDS AT THIS TIME. CALL LIGHT IN REACH.
--- NOTE | 2017-12-19 19:50 | NUR ---
PATIENT SITTING UP IN CHAIR. ORAL CARE DONE. DENTURE CARE DONE. GARBAGE EMPTIED. ICE IN CRYO. FRESH ICE WATER. BLANKETS FROM WARMER. VITALS AND I&Os DONE. CALL LIGHT WITHIN REACH. NO OTHER NEEDS AT THIS TIME.
--- NOTE | 2017-12-19 20:55 | NUR ---
PATIENT ASSISTED TO THE RESTROOM A SBA W/FWW. PATIENT WORE SPECIAL SHOES AND BRACE ON LEFT FOOR WHEN AMBULATING. PATIENT WAS ABLE TO VOID. PATIENT IS NOW IN BED RESTING. SCDS, TEDHOSE, AND WEDGE IN PLACE. PATIENTS CRYO FILLED WITH ICE AND APPLIED TO LEFT HIP. INCISION ON LEFT HIP IS OPEN TO AIR, WELL APPROXIMATED, AND NO REDNESS OR SWELLING NOTED. PATIENTS EVENING MEDICATIONS GIVEN PER ORDER. PRN PAIN MEDICATION GIVEN PER ORDER. PATIENT RATES PAIN AT A 7/10. PATIENT GIVEN CRACKERS WITH MEDICATIONS. PATIENT DENIES ANY FURTHER NEEDS AT THIS TIME. PATIENT IS AAOX3. CALL LIGHT IN REACH.
--- NOTE | 2017-12-19 22:42 | NUR ---
PATIENT ASSISTED TO THE RESTROOM. PATIENT IS A SBA W/FWW. PATIENT TOLERATED AMBULATION WELL. PATIENT WORE BRACE WHEN UP. PATIENT WAS ABLE TO VOID. PATIENT IS BACK IN BED RESTING. PATIENT HAS TEDHOSE, SCDS, CRYO, HEEL PROTECTORS IN PLACE. PATIENT RATES PAIN AT A 2/10. NO FURTHER NEEDS NOTED. CALL LIGHT IN REACH.
--- NOTE | 2017-12-20 00:44 | NUR ---
PATIENT IS RESTING IN BED WITH EYES CLSOED. BREATHING IS EVEN AND UNLABORED, RR 17. SCDS, TEDHOSE, HEEL PROTECTORS, WEDGE, AND CRYO IN PLACE. CALL LIGHT IN REACH.
--- NOTE | 2017-12-20 01:35 | NUR ---
PATIENT ASSISTED TO THE RESTROOM A SBA W/FWW. PATIENT WAS ABLE TO VOID. PATIENT IS BACK IN BE RESTING WITH WEDGE, SCDS, TEDHOSE, AND HEEL PROTECORS IN PLACE. CRYO REFILLED WITH ICE AND APPLIED TO HIP. PATIENT RATES PAIN AT A 7/10. PATIENT GIVEN PRN PAIN MEDICATION PER ORDER WITH CRACKERS TO SNACK ON. PATIENT DENIES ANY FURTHER NEEDS. WARM BLANKET PROVIDED. CALL LIGHT IN REACH.
--- NOTE | 2017-12-20 04:08 | NUR ---
PATIENT IS RESTING IN BED WITH EYES CLOSED, RR 17. CALL LIGHT IN REACH.
--- NOTE | 2017-12-20 05:09 | NUR ---
PATIENT RESTED WELL THROUGHOUT THE SHIFT. PATEINT IS ON A REG DIET, TOLERATING WELL, NO NAUSEA NOTED. PATIENT HAS SCDS, TEDHOSE, HEEL PROTECTORS, WEDGE, AND CRYO IN USE. PATIENTS INCISION SITED IS OPEN TO AIR, WELL APPORX, NO DRAINGE, AND NO REDNESS OR SWELLING PRESENT, LEIGHTON NOTED. PATIENT HAS NO IV. PATIENT IS INCONTINENT AT TIMES, ATTEND IN PLACE. PATIENT IS A SBA W/FWW. SHOES AND LEFT BRACE WORN WHEN AMBULATING. PATEINT RECEIVED X2 PRN PAIN MEDICAITON. PATIENT IS AAOX3, AND USES CALL LIGHT APROPRIATELY.
--- NOTE | 2017-12-20 06:49 | NUR ---
PATIENT ASSISTED TO THE RESTROOM A SBA W/FWW. PATIENT UPON AMBULATING BECAME SICK TO HER STOMACH. PATIENT GIVEN PRN ZOFRAN PER ORDER. PATIENT IS NOW IN RECLINER RESTING. SCDS, TEDHOSE, HEEL PROTECTORS, AND CRYO IN PLACE. CRYO REFILLED WITH ICE PER ORDER. PATIENTS MORNING MEDICATIONS GIVEN PER ORDER AFTER WAITING FOR NAUSEA TO SUBSIDE. CRACKERS PROVIDED. CALL LIGHT IN REACH. NO PAIN NOTED.
--- NOTE | 2017-12-20 07:00 | NUR ---
BEDSIDE HANDOFF REPORT RECEIVED FROM PROJECT MANAGEMENT CONSULTANT RN. PT RESTING IN CHAIR. PT DENIES NEEDS AT THIS TIME.
--- NOTE | 2017-12-20 09:00 | NUR ---
PT RESTING IN CHAIR. PT COMPLAINT OF PAIN TO LEFT LEG FROM TOES TO THIGH, RATING PAIN 8/10, GIVEN 2 TABS NORCO, DISCUSSED WITH DR. OLIVARES ORDER TO INCREASE GABAPENTIN WITH DR. TOMLINSON. PT ON ROOM AIR, LUNG SOUNDS CLEAR, DENIES SOB. BOWEL TONES ACTIVE, DENIES NAUSEA AT THIS TIME, TOLERATIGNG REGUALR DIET. PT CONTINUES TO HAVE FOOT DROP TO LEFT FOOT, PULSES PALPBLE. CLAUDE, SCDS, HEEL PROTECTORS AND CRYOCUFF IN PLACE. DISCUSSED PLAN OF CARE FOR THE DAY. PT DENIES OTHER NEEDS AT THIS TIME.
--- NOTE | 2017-12-20 10:54 | NUR ---
THIS AM VIRGEN FROM [facility] WAS HERE TO SEE PT. PT TOLD HER SHE IS NOT INTERESTED IN GOING ANYWHERE BUT HOME AT THIS POINT. THEN MARIANA FROM [facility] COMES STATING THAT [facility] CALLED HER AND ASKED HER TO COME EVALUATE PT. PT INFORMED HER THAT SHE IS GOING HOME TO HER HOME AND THAT SHE WISHES EVERYONE WOULD STOP TRYING TO GET HER TO GO SOMEWHERE [place] ALSO STATING THAT "DO YOU PEOPLE THINK [place] IS NOT GOOD ENOUGH HELP FOR ME." MARIANA STATES SHE EXPLAINED THAT WE ARE JUST LOOKING OUT FOR HER SAFETY.
--- NOTE | 2017-12-20 11:29 | NUR ---
PT SITTING IN CHAIR. PT RATING PAIN 4/10, DECLINED NEEDS AT THIS TIME. PO CARAFATE GIVEN.
--- NOTE | 2017-12-20 16:28 | NUR ---
PT SITTING IN CHAIR, VISITOR AT BEDSIDE. PT STATES PAIN IS "NOT TO BAD" AT THIS TIME, DECLINING NEED FOR PAIN MEDICATION. DISCUSSED PAIN MANAGEMENT AND DIFFERENT TYPES OF PAIN. PT DENIES OTHER NEEDS AT THIS TIME.
--- NOTE | 2017-12-20 18:13 | NUR ---
PT HAD UNEVENTFUL DAY. GABAPENTIN DOSE INCREASED, HAS NOT COMPLAINED OF MUCH NERVE PAIN TODAY. PT ON ROOM AIR, LUNG SOUNDS CLEAR. PT WORKED WITH PT/OT, WALKED IN RIVER. FOOT DROP REMAINS UNCHANGED, BOOT WHEN AMBULATING. SCDS, CLAUDE HOSE, HEEL PROTECTORS, CRYOCUFF. PT VOIDING QS.
--- NOTE | 2017-12-20 18:32 | NUR ---
PT MOVED FROM 110 TO 115. I&O WERE NOT DOCUMENTED BEFORE MOVING. DISCUSSED WITH PT. PT ESTIMATES THAT SHE VOIDED 3 TIMES, AT 75% OF BREAKFAST, 75% OF DINNER, DID NOT HAVE BM TODAY.
--- NOTE | 2017-12-20 18:55 | NUR ---
BEDSIDE REPORT RECEIVED FROM DAY SHIFT NURSE. PATIENT RESTING IN RECLINER WITH EYES CLOSED. TEDHOSE, SCDS, AND HEEL PROTECTORS IN PLACE. CRYO APPLIED TO LEFT HIP. CALL LIGHT WITHIN REACH.
--- NOTE | 2017-12-20 20:19 | NUR ---
ROUNDED CHARGE. PATIENT IS RESTING IN RECLINER RESTING. PATIENTS EYES ARE CLOSED. PATIENTS BREATHING IS EVEN AND UNLABORED, RR 17. CALL LIGHT IN REACH.
--- NOTE | 2017-12-20 20:30 | NUR ---
PATIENT ASSESMENT COMPLETED. VITAL SIGNS AND I&Os DOCUMENTED. PATIENT ASSISTED FROM RECLINER TO RESTROOM, SBA WITH FWW. PATIENT PERFORMED NIGHT HYGIENE INDEPENDENTLY. PATIENT ASSISTED TO THE BED. PATIENT RATED PAIN 8/10 IN HER RIGHT SHOULDER AND LEFT LEG. PRN PAIN MEDICATION GIVEN. PM MEDICATIONS GIVEN PER ORDER. NAUSEA NOTED, PATIENT DENIED THE NEED FOR PRN NAUSEA MEDICATION. COLD WASH CLOTH AND DEEP BREATHING FOR COMFORT. NO EMESIS NOTED. PATIENT STATED RELIEF FROM NAUSEA AFTER INTERVENTIONS. CRYO APPLIED TO LEFT HIP, ICE SUFFICIENT. CLAUDE HOSE, SCDS, AND HEEL PROTECTORS IN PLACE. PATIENTS INCISION ON LEFT HIP IS WELL APPROX, OPEN TO AIR, LEIGHTON PRESENT, AND NO REDNESS OR SWELLING NOTED. PATIENT DENIES ANY NEEDS AT THIS TIME. CALL LIGHT WITHIN REACH. BED ALARM ON. AAOX3.
--- NOTE | 2017-12-20 22:10 | NUR ---
PATIENT RESTING IN BED WITH EYES CLOSED. BREATHING EVEN AND UNLABORED, RR 15, AND SNORING NOTED. SCDS, TEDHOSE, AND HEEL PROTECTORS IN PLACE. CRYO APPLIED TO LEFT HIP, ICE SUFFICIENT. CALL LIGHT WITHIN REACH. BED ALARM ON.
--- NOTE | 2017-12-21 00:31 | NUR ---
PATIENT RESTING IN BED WITH EYES CLOSED. PATIENTS BREATHING EVEN AND UNLABORED, SNORING NOTED, AND RR 14. SCDS, TEDHOSE, AND HEEL PROTECTORS IN PLACE. CRYO APPLIED TO LEFT HIP, ICE SUFFICIENT. CALL LIGHT WITHIN REACH. BED ALARM ON.
--- NOTE | 2017-12-21 02:45 | NUR ---
PATIENT USED CALL LIGHT AND REQUESTED HELP TO THE RESTROOM. PATIENT A SBA WITH FWW. PATIENT ABLE TO VOID, YELLOW URINE. PATIENT RATED PAIN 7/10. PRN PAIN MEDICATION GIVEN PER PATIENT REQUEST. PATIENT ASSISTED TO RECLINER, PER PATIENT REQUEST. SCDS, TEDHOSE, AND HEEL PROTECTORS IN PLACE. CRYO APPLIED TO LEFT HIP, ICE SUFFICIENT. LEFT FOOT DROP NOTED. SNACK PROVIDED WITH PO MEDICATIONS. PATIENT DENIES NAUSEA. CALL LIGHT WITHIN REACH. AAOX3. PATIENT DENIES ANY OTHER NEEDS.
--- NOTE | 2017-12-21 04:51 | NUR ---
PATIENT RESTED THROUGHOUT THE NIGHT. PATIENT IS ON RA. REGULAR DIET. PAIN MEDICATION GIVEN X2. PATIENT SBA WITH FWW WHEN AMBULATING. PATIENT NAUSEOUS X1. SCDS, TEDHOSE, AND HEEL PROTECTORS IN PLACE. CRYO APPLIED TO LEFT HIP. LEFT FOOT DROP NOTED AND UNCHANGED. PATIENT VOIDING QS. LEFT HIP INCISION IS WELL APPROX, OPEN TO AIR, NO REDNESS OR SWELLING NOTED LEIGHTON PRESENT. SNACKS PROVIDED WITH PO MEDICAITONS.
--- NOTE | 2017-12-21 06:05 | NUR ---
PATIENT RESTING IN RECLINER WATCHING TV. PATIENT RATES PAIN 9/10. PRN PAIN MEDICATION GIVEN PER ORDER. SCDS, TEDHOSE, AND HEEL PROTECTORS IN PLACE. CRYO APPLIED TO LEFT HIP, ICE SUFFICIENT. PATIENT DENIES ANY OTHER NEEDS AT THIS TIME. CALL LIGHT WITHIN REACH. AAOX3. FRESH WATER GIVEN.
[2017-12-21] MEDS ORDERED: HYDROCODON-ACE1 EA10 PO (07:11)
[2017-12-21] MEDS ORDERED: NEURONTIN300 MG PO (07:11)
[2017-12-21] MEDS ORDERED: MILK OF MA400 MG/5 M PO (07:11)
[2017-12-21] MEDS ORDERED: MIRALAX17 GM PO (07:11)
--- NOTE | 2017-12-21 07:20 | NUR ---
BEDSIDE HANDOFF REPORT RECEIVED FROM IRON SETTER RN. PT RESTING IN CHAIR. PT COMPLAINT OF RIGHT LEG PAIN. DR. OLIVARES NOTIFIED, NO NEW ORDERS.
--- NOTE | 2017-12-21 08:17 | NUR ---
ORDERED PATIENT'S BREAKFAST. SHE IS SITTING UP IN HER CHAIR. WATCHING TV.
--- NOTE | 2017-12-21 09:05 | NUR ---
PT SITTING IN CHAIR. PT COMPLAINT OF PAIN 8/10 TO FEET FROM NERVE PAIN, DENIES PAIN IN LEFT HIP. PT WITH NAUSEA THIS AM, DENIES NAUSEA AT THIS TIME, GIVEN SL ZOFRAN. PT ON ROOM AIR, LUNG SOUNDS CLEAR, DENIES SOB. PT WITH POOR APPETITE THIS AM, ATE SMALL AMOUNT OF BREAKFAST. BOWEL TONES ACTIVE. PT WIHTOUT IV ACCESS. PT CONTINUES TO BE UNABLE TO DORSIFLEX LEFT FOOT, PULSES PALPABLE. CLAUDE ROSENTHAL, ANTONIOCUPRADIP, SCDS IN PLACE. PT GIVEN MORNING MEDICATIONS, VOMITED AFTER MEDICATIONS, GABAPENTIN SEEN IN EMESIS BAG. PT PROVIDED WITH REPLACEMENT DOSE OF GABAPENTIN. PT PROVIDED WITH COOL CLOTH TO NECK. PT DENIES OTHER NEEDS AT THIS TIME.
--- NOTE | 2017-12-21 09:09 | NUR ---
SPOKE WITH PAT AT HOME [facility]ALTH REGARDING THERAPY FOR THIS PATIENT AT HOME. THEY FOUND THE ORDER FOR HOME HEALTH PHYSICAL THERAPY AND NEEDED NO ADDITIONAL PAPERS OR INFORMATION FROM ME AT THIS TIME
--- NOTE | 2017-12-21 09:24 | NUR ---
PATIENT IN CHAIR, BREAKFAST IN FRONT ON TABLE. DYLAN MURRELL IN ROOM TO GIVE MEDS, PATIENT VERY NAUSEOUS AND USING EMESIS BAG. PATIENT WAS GIVEN WATER BY THIS PORTER MARINA TO RINSE HER MOUTH, AND FRESH [place]. PATIENT REPORTS SHE "SOMETIMES VOMITS AT HOME, BUT NOT VERY OFTEN" CALL LIGHT IN REACH. NO OTHER NEEDS
--- NOTE | 2017-12-21 10:51 | NUR ---
PATIENT BACK FROM PT WITH SHANTA. PATIENT IN CHAIR LEGS ELEVATED SCDS ON. PT SHANTA REMOVED BRACE FROM LEFT LEG. WARM BLANKET GIVEN VITALS AND I/OS RECORDED. HEALTH WORKER MARY IN ROOM TO TALK WITH PATIENT. CALL LIGHT IN REACH. PATIENT BECAME VERY WEEPY UPON RETURNING FROM THERAPY. REPORTS SHE'S JUST VERY FRUSTRATED AND WANTS TO WALK AND FEEL BETTER.
--- NOTE | 2017-12-21 11:47 | NUR ---
THIS POND SCALER GATHERED PATIENT BELONGINGS AND GOT THEM READY FOR DICHARGE TODAY PER DYLAN MURRELL. PATIENT IN CHAIR, CALL LIGHT IN REACH
--- NOTE | 2017-12-21 12:00 | NUR ---
PT GIVEN CARAFATE ORDERED. PT ASSISTED WITH ORDERING LUNCH. CAREGIVER CALLED FOR DISCHARGE, MESSAGE LEFT TO RETURN CALL. PT DENIES OTHER NEEDS AT THIS TIME.
--- NOTE | 2017-12-21 13:45 | NUR ---
PATIENT UP IN CHAIR, CRYO FILLED D/C VITALS AND I/OS RECORDED. PATIENTS CAREGIVER AND DYLAN MURRELL ON COUCH DISCUSSING D/C ORDERS. NO OTHER NEEDS AT THIS TIME
--- NOTE | 2017-12-22 07:31 | DS ---
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 DISCHARGE DIAGNOSES: 1. 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 2. Left foot drop. 3. Left sciatica. PROCEDURE PERFORMED DURING THIS HOSPITALIZATION: CT scan lumbar spine, attempted CT myelogram without success. BRIEF HISTORY: Kelli is an 87-year-old female, who had underwent a successful left total hip replacement. Because she lives alone, has no family. She was felt to be a good candidate for continued inpatient rehab. She was admitted to swing bed status and continued her inpatient rehab, doing well. Approximately, 3 weeks after the index operation, she was noted to have acute sudden onset of left foot drop. This was a dense foot drop. She had virtually no movement of her foot dorsally. She had accompanying pain in the L5-S1 distribution. Due to her fragile status, she was not placed on steroids, however, she was placed on gabapentin, which helped to manage her pain control along with the [place]. She was also placed on anti-inflammatories. Neurosurgery was contacted in [place]. They recommended an MRI, she cannot have an MRI because of a cochlear implant. They also recommended then a CT myelogram. This was attempted x2 without success. At this point, I have contacted the neurosurgeons and they are going to see her in their clinic and/or with Physiatry for epidural steroid injections. Otherwise, she has done well, ambulating. I did have her fitted for an AFO, which did improve her ambulation status. She feels safe from nursing, therapy staff feel that she is safe to go home with her caregiver. She will follow up with me in 1 week. Elvia Steward MD BA/MODL /[id number] Electronically Signed By: ELVIA STEWARD MD 12/22/17 0731 PATIENT NAME: KELLI GALLAGHER DISCHARGE SUMMARY DATE OF : 32 REPORT #: [id number] PHYSICIAN: ELVIA STEWARD MD PCP: GISSEL WADDELL MD REPORT IS CONFIDENTIAL AND NOT TO BE RELEASED WITHOUT AUTHORIZATION [facility] [address] [place] [id number] Signed Copies: ~ Electronically Signed By: ELVIA STEWARD MD 12/22/17 0731 PATIENT NAME: KELLI GALLAGHER ERIKA DISCHARGE SUMMARY DATE OF : 32 REPORT #: [id number] PHYSICIAN: ELVIA STEWARD MD PCP: GISSEL WADDELL MD REPORT IS CONFIDENTIAL AND NOT TO BE RELEASED WITHOUT AUTHORIZATION
--- NOTE | 2017-12-22 17:13 | NUR ---
faxed chart notes TO [facility], THESE INCLUDED THE ORDER, H AND P, PROG NOTE, DC SUMMARY, AND PT NOTES
--- NOTE | 2017-12-27 17:31 | NUR ---
CONTACTED BY LUNA HERNANDEZ FROM [facility]. SHE STATES SHE MADE MULTIPLE ATTEMPTS TO SEE PATIENT AT HER HOME AFTER DISCHARGE. SHE STATES TODAY SHE WAS ABLE TO FINALLY GET IN TO SEE PATIENT. SHE STATES SHE ENDED UP GOING TO APARTMENT AND WAS ABLE TO GET IN. SHE STATES PATIENT WAS THERE, SHE IS NOT WEARING THE SPECIAL BRACE AND SHOES FOR HER FOOT DROP. SHE STATES PATIENT WAS UP AND TRYING TO AMBULATE, BUT WAS DRAGGING HER FOOT. PATIENT IS EXTREMELY [place]. RUDIW STATED THAT SHE WAS AFRAID PATIENT WOULD FALL AND WANTED TO REPORT WHAT SHE SAW. SHE STATES HER CAREGIVER ALEJANDRA CAME IN AND SHE STARTED ANSWERING QUESTIONS. SHE STATES SHE STATED THEY CANCELLED THE EXTRA HOURS OF CAREGIVING WITH [employer] AND THAT SHE IS THERE DURING THE DAY AND THEY HAVE A CAREGIVER AT NIGHT. CHW QUESTIONED ALEJANDRA ABOUT THIS MORE, SHE STATED THE NIGHT CAREGIVER IS "MARNI". WHEN ASKED HER LAST NAME AND WHERE SHE FOUND HER, ALEJANDRA REFUSED TO ANSWER. STATING "WE HAVE IT HANDLED". CHW STATED THAT SHE IS UNSURE IF HOME HEALTH HAS BEEN IN TO SEE PATIENT. CALLED AND LEFT MESSAGE WITH PATRIC DAMIAN REGARDING CONCERNS THAT PATIENT IS NOT FOLLOWING DISCHARGE ORDERS AND CAREGIVER ISSUES. VERY CONCERNED PATIENT MAY FALL. I SPOKE WITH HOME HEALTH SHEEP AND WHEAT FARMER [facility] WHO STATED THAT THE RN WAS ABLE TO GET IN TODAY AND ADMIT PATIENT. THE ADMITTING RN WAS CHERIE. SHE ASKED THAT I CALL CHERIE AND UPDATE HER. CALLED CHERIE AT [phone]. SHE STATED SHE DID ADMIT PATIENT THIS AFTERNOON. SHE STATES CAREGIVER ALEJANDRA WAS PRESENT. PATIENT WAS IN A CHAIR, SHE DID NOT SEE HER WALK. SHE STATES PATIENT DID NOT HAVE ANY SPECIAL SHOES, BRACE ON. SHE DID NOT SEE ANY OF THIS ON PATIENT AND WAS NOT AWARE OF IT. SHE STATES CAREGIVER DID NOT BRING THIS UP. SHE SAID THAT CAREGIVER ALEJANDRA STATED TO HER THAT SHE IS "STAYING HERE NOT FLORAL MANAGER" AND INDICATED SHE IS THERE 24 HOURS A DAY NOW. CHERIE STATED SHE WILL LOOK INTO THESE ISSUES. I TOLD HER I CALLED PATRIC AND LEFT A MESSAGE FOR CLARICE DAMIAN TO LOOK INTO THESE ISSUES. SPOKE WITH [facility] HOME HEALTH SHEEP AND WHEAT FARMER AGAIN AND SHE STATES PHYSICAL THERAPY SHOULD BE GOING IN TO SEE PATIENT TOMORROW. SHE WILL HAVE THERAPIST CALL ME TO DISCUSS PATIENT NOT WEARING SPECIAL SHOES AND BRACE.
--- NOTE | 2017-12-28 10:22 | NUR ---
SPOKE WITH CLARICE DAMIAN [facility]. SHE STATES THEIR COLD HEADER OPERATOR KRISTI WAS GOING TO SEE PATIENT TODAY AND ASSESS THE SITUATION. SHE STATES THEY HAVE SUGGESTED TO PATIENT SHE SHOULD LIVE AT ASSISTED LIVING. SHE STATES THAT THE CAREGIVER ALEJANDRA WILL NOT BE ABLE TO LIVE (OR STAY WITH) PATIENT MORE THAN A WEEK OR SO ACCORDING TO THE RULES AT THE [facility]. THEY WILL CONTINUE TO MONITOR THE SITUATION. RECEIVED A MESSAGE FROM [facility]ALTH PT. SHE STATES SHE DID SEE PATIENT YESTERDAY AFTERNOON AND PATIENT WAS NOT WEARING BRACE SET-UP. SHE STATED PATIENT WAS ABLE TO AMBULATE WITH WALKER. SHE WILL CONTINUE TO WORK WITH HER REGARDING FALL RISK.
== END 2017-12-21 14:20 | disposition home or self-care (01) | DRG 561 ==
LOC: MS 08:50
PROVIDERS: ADMIT Specialist
DX: Z47.1 Aftercare following joint replacement surgery (principal); Z96.642 Presence of left artificial hip joint; R53.1 Weakness; R26.81 Unsteadiness on feet; M21.372 Foot drop, left foot; R11.2 Nausea with vomiting, unspecified; M54.16 Radiculopathy, lumbar region; M54.32 Sciatica, left side; H91.90 Unspecified hearing loss, unspecified ear; Z79.83 Long term (current) use of bisphosphonates; Z79.899 Other long term (current) drug therapy; Z88.1 Allergy status to other antibiotic agents; Z96.21 Cochlear implant status; Z87.891 Personal history of nicotine dependence; Z88.5 Allergy status to narcotic agent; Z88.2 Allergy status to sulfonamides
CPT/HCPCS: 36415; 72131; 73502; 73560; 76000; 80048; 85025; 93971; 97110; 97116; 97166; 97530; 97535; J1885; J2405

== ENCOUNTER 2018-03-19 08:44 | Emergency (ER) | payer MEDICARE, OTHER ==
[~2018-03-19] VITALS: Ht 149.9 cm; Wt 54.4 kg
--- OUTSIDE RECORDS SUMMARY | ~2018-03-19 | XMS | Encounter Summary ---
Demographics + + + | Address | [address] | | | [place] [address] | + + + | Home Phone | | + + + | Preferred Language | Unknown | + + + | Marital Status | Single | + + + | Mandaeism Affiliation | Unknown | + + + | Race | Unknown | + + + | Ethnic Group | Unknown | + + + Author + + + | Author | [facility] | | | and [place] | + + + | Organization | [facility] | | | and [...] Team Providers + +------+ + | Care Information Security Manager Name | Role | Phone | + +------+ + | Erich Marcos MD | PCP | | + +------+ + Encounter Details +--------+ + + + + | Date | Type | Department | Care Team | Description | +--------+ + + + + | 12/20/ | Orders Only | [facility] | [place], | Left foot drop | | 2017 | | PHYSIATRY [address] | THEODORE Ramos [address] | (Primary Dx) | | | | [place], | [address] [place] | | | | | [place] [address] | [place] [address] | | | | | [phone] | [phone] | | | | | | | | +--------+ + + + [...] + + + as of this encounter Plan of Treatment Not on fileas of this encounter Visit Diagnoses + + | Diagnosis | + + | Left foot drop - Primary | + + | Other acquired deformity of ankle and foot | + +"
--- OUTSIDE RECORDS SUMMARY | ~2018-03-19 | XMS | Clinical Summary ---
Demographics + + + | Address | [address] | | | [place] [address] | + + + | Home Phone | | + + + | Preferred Language | Unknown | + + + | Marital Status | Single | + + + | Baptist Affiliation | Unknown | + + + | Race | Unknown | + + + | Ethnic Group | Unknown | + + + Author + + + | Author | [facility] | | | and [place] | + + + | Organization | [facility] | | | and [...] Team Providers + +------+ + | Care Silver Solderer Name | Role | Phone | + +------+ + | Amilcar Jean MD | PP | | + +------+ + Allergies + + + + + + | Active Allergy | Reactions | Severity | Noted | Comments | | | | | Date | | + + + + + + | Ciprofloxacin | Other (See Comments) | High | 07/11/20 | Reaction not | | | | | 14 | specified in outside | | | | | | medical records | | | | | | Critical | + + + + + + | Codeine | Nausea And Vomiting | High | 05/25/20 | | | | | | 15 | | + + + + + + | Hydrocodone | Other (See Comments) | High | 12/02/19 | Severe, Unknown | | | | | 18 | | + + + + + + | Oxycodone | Other (See Comments) | Low | 12/02/19 | Mild; Sick | | | | | 18 | | + + + + + + | Sulfa Antibiotics | Other (See Comments) | High | 07/11/20 | Reaction not | | | | | 14 | specified in outside | | | | | | medical records | | | | | | Critical | + + + + + + | Tramadol | Nausea Only | Low | 10/17/19 | GI upset | | | | [...] | | | + + +-------+---------+------+------+-------+ | ascorbic acid | Take 500 mg by mouth | | | | | Activ | | (VITAMIN C) 500 mg | Daily. | | | | | e | | tablet | | | | | | | + + +-------+---------+------+------+-------+ | Multiple | Take 1 tablet by | | | | | Activ | | Vitamins-Minerals | mouth Daily. | | | | | e | | (MULTI FOR HER 50+) | | | | | | | | CAPS | | | | | | | + + +-------+---------+------+------+-------+ | ergocalciferol | | | | | | Activ | | (VITAMIN D-2) 50,000 | | | | | | e | | units capsule | | | | | | | + + +-------+---------+------+------+-------+ | Calcium | Take 1 tablet by | | | | | Activ | | Carbonate-Vit D-Min | mouth once daily. | | | | | e | | (CALCIUM 600+D PLUS | | | | | | | | MINERALS) 600-400 | | | | | | | | MG-UNIT TABS | | | | | | | + + +-------+---------+------+------+-------+ | alendronate | | | | | | Activ | | (FOSAMAX) 70 mg | | | | | | e | | tablet | | | | | | | + + +-------+---------+------+------+-------+ | escitalopram | | | | | | Activ | | (LEXAPRO) 5 MG | | | | | | e | | tablet | | | | | | | + + +-------+---------+------+------+-------+ | | Take 1 tablet by | | | | | Activ | | oxyCODONE-acetaminop | mouth every 6 hours | | | | | e | | hen (PERCOCET) 5-325 | as needed. | | | | | | | mg per tablet | | | | | | | + + +-------+---------+------+------+-------+ | raNITIdine | | | | | | Activ | | (ZANTAC) 150 MG | | | | | | e | | capsule | | | | | | | + + +-------+---------+------+------+-------+ | aspirin 81 mg EC | Take 81 mg by mouth | | | | | Activ | | tablet | as needed for Fever. | | | | | e | + + +-------+---------+------+------+-------+ | | Take 1-2 tablets by | | 0 | 05/1 | | Activ | | HYDROcodone-acetamin | mouth every 6 hours | | | 7/20 | | e | | ophen (NORCO) 5-325 | as needed. | | | 18 | | | | mg per tablet | | | | | | | + + +-------+---------+------+------+-------+ | gabapentin | Take 1 capsule by | | 0 | 05/1 | | Activ | | (NEURONTIN) 300 mg | mouth 3 times daily. | | | 7/20 | | e | | capsule | | | | 18 | | | + + +-------+---------+------+------+-------+ | Calcium | Take 1 tablet by | | | | | Activ | | Carb-Cholecalciferol | mouth Daily. | | | | | e | | (CALCIUM+D3) | | | | | | | | 600-800 MG-UNIT TABS | | | | | | | + + +-------+---------+------+------+-------+ | calcium-vitamin D | Take 1 tablet by | | | | | Activ | | 600-400 MG-UNIT TABS | mouth Daily. | | | | | e | + + +-------+---------+------+------+-------+ | estrogens, | Place vaginally | | | | | Activ | | conjugated, | Daily. | | | | | e | | (PREMARIN) 0.625 | | | | | | | | mg/g vaginal cream | | | | | | | + + +-------+---------+------+------+-------+ | pantoprazole | Take 40 mg by mouth | | | | | Activ | | (PROTONIX) 40 mg | every morning | | | | | e | | tablet | (before breakfast). | | | | | | + + +-------+---------+------+------+-------+ | raNITIdine | Take 150 mg by mouth | | | | | Activ | | (ZANTAC) 150 mg | 2 times daily. | | | | | e | | tablet | | | | | | | + + +-------+---------+------+------+-------+ Active Problems + + + | Problem | Noted Date | + + + | Foot drop, left foot | 01/13/2018 | + + + | Peroneal neuropathy at knee, left | 01/13/2018 | + + + | Esophageal reflux [...] (gastroesophageal reflux disease) | | + +---+ Encounters +--------+ + + + + | Date | Type | Specialty | Care Team | Description | +--------+ + + + + | 01/10/ | Procedure | | Nick Rangel | Foot drop, left | | 2017 | visit | | MD [facility] | foot; Peroneal | | | | | | neuropathy at knee, | | | | | | left | +--------+ + + + + | 01/08/ | Abstract | | Nick Rangel | | | 2017 | | | MD Kalpana | | +--------+ + + + + | 12/20/ | Orders Only | | Carolyne, | Left foot drop | | 2017 | | | THEODORE Ramos | (Primary Dx) | +--------+ + + + + from Last 3 Months Family History + + +------+ + | Medical History | Relation | Name | Comments | + + +------+ + | Heart disease | Father | | ASCVD | + + +------+ + | Stroke | Father | | | + + +------+ + | Heart disease | Mother | | | + + +------+ + | Stroke | Mother | | | + + +------+ + | Colon cancer | Other | | Sibling | + + +------+ + | Ovarian cancer | Other | | Sibling | + + +------+ + | Diabetes | Neg Hx | | | + + +------+ + + +------+ + + | Relation | Name | Status | Comments | + +------+ + + | Father | | | | + +------+ + + | Mother | | | | + +------+ + + | Other | | | | + +------+ + + Social History + + + +--------+ + | Tobacco Use | Types | Packs/Day | Years | Date | | | | | Used | | + + + +--------+ + | Former Smoker | Cigarettes | 1 | 20 | 08/07/1975 - | | | | | | 08/07/1995 | + + + +--------+ + + +---+---+---+ | Smokeless Tobacco: | | | | | Never Used | | | | + +---+---+---+ + + +---------+ + | Alcohol Use | Drinks/We | oz/Week | Comments | | | ek | | | + + +---------+ + | Yes | | | occasionally wine | + + +---------+ + + + + | Sex Assigned at | Date Recorded | | | | + + + | Not on file | | + + + Last Filed Vital Signs + + + + | Vital Sign | Reading | Time Taken | + + + + | Blood Pressure | 127/77 | 01/10/2018 1100 PDT | + + + + | Pulse | 72 | 01/10/2018 1100 PDT | + + + + | Temperature [...] Weight | 64 kg (141 lb) | 01/10/20181099 PDT | + + + + | Height | 147.3 cm (4' 10") | 01/10/20181099 PDT | + + + + | Body Mass Index | 29.47 | 01/10/20181099 PDT | + + + + Plan [...] 65+ | 8 | | | | High/Highest Risk (1 | | | | | of 2 - PCV13) | | | | + + + + + | Vaccine: Influenza | | | | | (#1) | 8 | | | + + [...] | | + +--------+ +--------+ +---------+ | MEDICARE | MEDICA | [id number] | Medica | [phone] | | | RE | | re | [phone] | | | | PART A | | | | | | | AND B | | | | | + +--------+ +--------+ +---------+ | MEDICAID [place] | MEDICA | [id number] | Medica | [phone] | | [...] Self | [birth year] Home: | [address] | | | al/Fam | | [phone] | [phone] [address] [place], | | | [place] | | | [phone] | [place] [phone] | + +--------+ +--------+ + +
--- OUTSIDE RECORDS SUMMARY | ~2018-03-19 | XMS | Encounter Summary ---
Demographics + + + | Address | [address] | | | [place] [address] | + + + | Home Phone | | + + + | Preferred Language | Unknown | + + + | Marital Status | Single | + + + | Methodist Affiliation | CAT | + + + | Race | White | + + + | Ethnic Group | Not or | + + + Author + + + | Author | [facility] | + + + | Organization | [facility] | + + + | Address | Unknown | + + + | Phone | Unavailable | + + + Support + + + + + | Name | Relationship | Address | Phone | + + + + + | Lauri Godinez | ECON | [address] | | | | | #[address] | | | | | [address] | | + + + + + | Buddy Wilson | ECON | Unknown | | + + + + + Care Team Providers + +------+ + | Care Faucet Polisher Name | Role | Phone | + +------+ + | Amilcar Jean MD | PCP | | + +------+ + Reason for Visit + + + | Reason | Comments | + + + | Hearing loss | | + + + Audiology Services (Routine) +--------+--------+ + + + + | Status | Reason | Specialty | Diagnoses / | Referred By | Referred To | | | | | Procedures | Contact | Contact | +--------+--------+ + + + + | Closed | | [facility] | | Non-[facility] | Ent | | | | | | Epic Dept | Audiology [facility] | | | | | | | [address] | | | | | | | [address] | | | | | | | [facility] | | | | | | | Mailcode: | | | | | | | [address] | | | | | | | Physician's | | | | | | | [place] | | | | | | | [place], [place] | | | | | | | [address] | | | | | | | Phone: | | | | | | | [phone] | | | | | | | Fax: | | | | | | | [phone] | +--------+--------+ + + + + Encounter Details +--------+ + + + + | Date | Type | Department | Care Team | Description | +--------+ + + + + | 03/13/ | Diagnostic | Otolaryngology | Nidia Lee | Hearing loss | | 2018 | Visit | Audiology Services | K, AuD [address] | | | | | at [facility] [address] | [facility] | | | | | [facility] | [place], [place] | | | | | Mailcode: [address] | [address] | | | | | Physician's Tee | | | | | | [place], [place] | | | | | | [address] | | | | | | [phone] | | | +--------+ + + + [...] encounter Progress Notes Nidia Lee AuD - 03/13/2018 2:30 PM PDTFormatting of this note may be different f rom the original. [facility] Cochlear Implant Program Name: Domenica Godinez : 1930 Date of Visit: 03/14/2017 Interval: Routine 9 month Participants: Ms. Go (Caregiver) CI: Left PERALTA: None Banquet Set Up Person: Poynt Internal: CI522 Magnet Strength: 1X Adult Cochlear Implant Programming Summary Background/Medical History: Domenica Godinez, 87 y.o., was seen by [facility] Audiology for follow up of her LEFT cochlear impl ant. Ms. Godinez was implanted by Sachin Ng MD, on 06/11/2015. Her left cochlear implan t was initially activated on 06/25/2015. She was last seen for follow up on 06/14/2017. Today Ms. Godinez and her caregiver reported that she is still having difficulty hearing in most situations with her cochlear implant. As a reminder she is not utilizing a hearing aid in the other ear. She is using a snugfit for retention but the snugfit is broken. Listening check confirmed weak microphones on the N6 processor. Replaced microphone filters which improved amplification. The magnet site was assessed and was healthy in appearance, a nd the magnet strength 1m continues to be appropriate. Replaced her snugfit with a clinic lo aner and re-instructed her on use. Cautioned to not put too much pressure on the earhook whi ch is what broke on her other device. Programming: Ms. Godinez's N6 processor was connected to the computer for programming. Impedances were WN L across the electrode array. Datalogging revealed radio time buyer use of her processor. She is us ing P2/Old preferred MAP with 720 Hz rate. She arrive to today's appointment using P1/New 50 0 Hz rate MAP. Her current 500 Hz rate MAP 25 was activated and T and C levels were adjusted for comfort. She reported hearing the clinician better with the cleaning of microphones and this adjustment. Her second program MAP 20 (720 Hz rate) was then activated for comparison. She reported a buzzing sound with both the new MAP 20 and older preferred MAP 19 (both 720 Hz rate--MAP19 was the MAP she was wearing when she achieved her best [place] Bio scores in 2017) . The buzz could not be programmed out entirely. Adjusting higher frequency channels particu larly on Threshold did appear to reduce the perception of the buzzing, as did reducing thres holds globally and disabling channels 1 and 2, however it could not be eradicated with any a djustments made. She became frustrated with the adjustments, stating she was getting confuse d. When the current P1/MAP 25 (500 Hz) was re-activated she stated the buzzing was gone and she was hearing better. Based on limited time after all of these adjustments were made, this adjusted 500 Hz MAP was saved to her primary processor and aided testing was completed. No other programs were saved in favor of simplifying her choice in program, and encouraged con sistent use of a slower rate MAP to determine if this is of benefit for her speech discrimin ation ability. She did not have her back up processor with her today. Map(s) Programmed: Program Location Map # Description P1 27 Home P2 Home P3 - - P4 - - Audiologic Results: Following programming aided testing was completed in the soundfield in order to verify bene fit from Domenica's cochlear implant. Speech perception testing was completed via recorded stim christophe at 60 dB SPL in Program 1/MAP 27 in the soundfield unless otherwise noted. The following responses were obtained: Aided Thresholds: 182 862 7699 2000 3000 4000 6000 SRT CI - R 35 40 35 35 35 35 25 20 Aided Speech Perception Tests: List S/N % correct HINT CI- R 7 Quiet 44% CNC List S/N Word % correct Phoneme % correct CI- R 7a Quiet 40% 64% Impressions/Recommendations: Due to time constraints further speech perception testing and programming adjustments could not be completed today. Continued close monitoring of Ms. Godinez's performance with the darrius hlear implant was recommended in 3 months, sooner if major concerns arise. She will be conta cted by [facility] to schedule. It was a pleasure working with Domenica and Buddy again today. If there are any questions or comments regarding the results and recommendations of this evaluation, please do not hesitat e to contact me at . Roxanne Wynne, FAAA Clinical [facility] Board Certified in Audiology [facility] Department of Otolaryngology Audiology Services [address] [place] [address] in this encounter Plan of Treatment +--------+ + + + + | Date | Type | Specialty | Care Team | Description | +--------+ + + + + | 06/06/ | Diagnostic | [facility] | Nidia Lee | | | 2017 | Visit | | Latanya Miguel [address] | | | | | | [address] | | | | | | [place], [place] | | | | | | [address] | | +--------+ + + + + as of this encounter Procedures + +--------+ + + + | Procedure Name | Priori | Date/Time | Associated Diagnosis | Comments | | | ty | | | | + +--------+ + + + | TX EVL AUD RHB STTS | Routin | 03/13/2018 | Sensorineural | | | | e | 6:50 PM | hearing loss, | | | | | PDT | bilateral | | + +--------+ + + + in this encounter Visit Diagnoses + + | Diagnosis | + + | Sensorineural hearing loss, bilateral - Primary | + +"
--- OUTSIDE RECORDS SUMMARY | ~2018-03-19 | XMS | Encounter Summary ---
Demographics + + + | Address | [address] | | | [place] [address] | + + + | Home Phone | | + + + | Preferred Language | Unknown | + + + | Marital Status | Single | + + + | Confucianism Affiliation | Unknown | + + + | Race | Unknown | + + + | Ethnic Group | Unknown | + + + Author + + + | Author | [facility] | | | and [place] | + + + | Organization | [facility] | | | and [...] Team Providers + +------+ + | Care Juke Box Mechanic Name | Role | Phone | + +------+ + | Amilcar Jean MD | PCP | | + +------+ + Reason for Visit + + + | Reason | Comments | + + + | Focal Motor Weakness | Left foot drop | + + + Evaluate & Treat (Urgent) +--------+--------+ + + + + | Status | Reason | Specialty | Diagnoses / | Referred By | Referred To | | | | | Procedures | Contact | Contact | +--------+--------+ + + + + | Closed | | Physical | Diagnoses | Bin, | Juan Carlos, | | | | Medicine and | Left foot | Derrick Ware, | Nick Acuna MD | | | | Rehabilitatio | drop Low | MD [address] | | | | n | back pain | [address] | [address] [place] | | | | | Pain in left | [place], | [place], [place] | | | | | hip | [place] | [address] Phone: | | | | | Unilateral | [address] | [phone] | | | | | primary | Phone: | Fax: | | | | | osteoarthrit | [phone] | [phone] | | | | | is, left hip | Fax: | | | | | | | [phone] | | +--------+--------+ + + + + Encounter Details +--------+ + + + + | Date | Type | Department | Care Team | Description | +--------+ + + + + | 01/10/ | Procedure | [facility] [place] | Nick Rangel | Foot drop, left | | 2018 | visit | PHYSIATRY [address] | foot; Peroneal | | | | [place], | [address] [place] | neuropathy at knee, | | | | [place] [address] | [address] | left | | | | [phone] | | | +--------+ + + + + Social History + + + [...] + + + as of this encounter Last Filed Vital Signs + + + + | Vital Sign | Reading | Time Taken | + + + + | Blood Pressure | 127/77 | 01/10/2018 1100 PDT | + + + + | Pulse | 72 | 01/10/2018 1100 PDT | + + + + | Temperature | - | - | + + + + | Respiratory Rate | - | - | + + + + | Oxygen Saturation | - | - | + + + + | Inhaled Oxygen | - | - | | Concentration | | | + + + + | Weight | 64 kg (141 lb) | 01/10/2018 1100 PDT | + + + + | Height | 147.3 cm (4' 10") | 01/10/2018 1100 PDT | + + + + | Body Mass Index | 29.47 | 01/10/2018 1100 PDT | + + + + in this encounter Progress Notes Nick Rangel MD - 01/10/2018 1030 PDTFormatting of this note may be different from t mario original. CHIEF COMPLAINT: Chief Complaint Patient presents with Focal Motor Weakness Left foot drop HISTORY OF PRESENT ILLNESS: The patient is an 87 y.o. female being seen today at [facility] of Dr. Derrick Steward for complaints of left foot drop that began approximately a month ag o. The exact onset of weakness is not clear as the patient is not the best historian. Per the caregiver the weakness started within a few days after a left ALANA. The caregiver also r eports that Ms. Godinez was asleep or basically unarousable for 24 hours straight after her s urgery. It sounds like shortly thereafter it was noted that she had the left foot drop. The weakness has been constant since it started. The patient does also report pain in the hip which is understandable given the recent surgery. She does also have some pain further down in the left leg as well. The left ankle has also been swollen. She did reportedly jus t have a fall and twisted that ankle. The caregiver does say that the ankle was swollen rupa n before the fall. Her symptoms improve with nothing. She does have numbness in an L5 or peroneal nerve distribution on the left. Patient's medications, allergies, past medical, surgical, social and family histories were reviewed and updated as appropriate. Dr. Steward did also request that I perform EMG/NCS as well. 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 Db Morris,OR HYSTERECTOMY with Oopherectomy SMALL INTESTINE SURGERY 02/26/2016 twisted bowel STOMACH SURGERY 1979 [place] STOMACH SURGERY 1979 unstapled [place] TOTAL HIP ARTHROPLASTY Right 12/2009 Dr. Bin Morris TOTAL HIP ARTHROPLASTY Left 11/27/2017 Dr. Derrick Steward [facility] OR UPPER GASTROINTESTINAL ENDOSCOPY 07/22/2014 EGD W/ JULIO CAPSULE; Laterality: N/A; Surgeon: Lawrence José MD; Location: [facility] PROCEDURE UNIT CURRENT MEDICATIONS: Current Outpatient Prescriptions Medication Sig Dispense Refill acetaminophen-codeine (TYLENOL #3) 300-30 mg per tablet Take 1 tablet by mouth every 4 hours as needed. alendronate (FOSAMAX) 70 mg tablet amLODIPine (NORVASC) 5 mg tablet Take 5 mg by mouth Daily. ascorbic acid (VITAMIN C) 500 mg tablet Take 500 mg by mouth Daily. aspirin 325 mg tablet Take 325 mg by mouth Daily. aspirin 81 mg EC tablet Take 81 mg by mouth as needed for Fever. Calcium Carb-Cholecalciferol (CALCIUM+D3) 600-800 MG-UNIT TABS Take 1 tablet by mouth D aily. Calcium Carbonate-Vit D-Min (CALCIUM 600+D PLUS MINERALS) 600-400 MG-UNIT TABS Take 1 t ablet by mouth once daily. Calcium-Vitamin D (CALTRATE 600 PLUS-VIT D PO) Take by mouth. calcium-vitamin D 600-400 MG-UNIT TABS Take 1 tablet by mouth Daily. cephalexin (KEFLEX) 250 mg capsule Take 250 mg by mouth 4 times daily. cholecalciferol (VITAMIN D-3) 1,000 units tablet Take 1,000 Units by mouth Daily. ergocalciferol (VITAMIN D-2) 50,000 units capsule escitalopram (LEXAPRO) 5 MG tablet estrogens, conjugated, (PREMARIN) 0.625 mg/g vaginal cream Place vaginally Daily. gabapentin (NEURONTIN) 300 mg capsule Take 1 capsule by mouth 3 times daily. 0 hydrochlorothiazide 50 mg tablet Take 50 mg by mouth Daily. HYDROcodone-acetaminophen (NORCO) 5-325 mg per tablet Take 1-2 tablets by mouth every 6 hours as needed. 0 levothyroxine (SYNTHROID, LEVOTHROID) 100 mcg tablet Take 100 mcg by mouth every mornin g (before breakfast). Multiple Vitamins-Minerals (CENTRUM SILVER PO) Take by mouth. Multiple Vitamins-Minerals (MULTI FOR HER 50+) CAPS Take 1 tablet by mouth Daily. oxybutynin (DITROPAN-XL) 10 MG 24 hr tablet Take 10 mg by mouth Daily. oxyCODONE-acetaminophen (PERCOCET) 5-325 mg per tablet Take 1 tablet by mouth every 6 h ours as needed. pantoprazole (PROTONIX) 40 mg tablet Take 40 mg by mouth every morning (before breakfas t). pilocarpine (ISOPTO CARPINE) 2% ophthalmic solution 1 drop 4 times daily. potassium chloride SA (K-DUR,KLOR-CON) 10 MEQ tablet Take 10 mEq by mouth 2 times daily . raNITIdine (ZANTAC) 150 MG capsule raNITIdine (ZANTAC) 150 mg tablet Take 150 mg by mouth 2 times daily. No current facility-administered medications for this visit. ALLERGIES: Allergies Allergen Reactions Ciprofloxacin Other (See Comments) Reaction not specified in outside medical records Critical Codeine Nausea And Vomiting Hydrocodone Other (See Comments) Severe, Unknown Sulfa Antibiotics Other (See Comments) Reaction not specified in outside medical records Critical Oxycodone Other (See Comments) Mild; Sick Tramadol Nausea Only GI upset SOCIAL HISTORY: The patient reports that she quit smoking about 22 years ago. Her smoking use included Cig arettes. She started smoking about 42 years ago. She has a 20.00 pack-year smoking history. She has never used smokeless tobacco. She reports that she drinks alcohol. She reports that she does not use drugs. FAMILY HISTORY: Family History Problem Relation Age of Onset Ovarian cancer Other Sibling Colon cancer Other Sibling Heart disease Mother Stroke Mother Heart disease Father ASCVD Stroke Father Diabetes Neg Hx REVIEW OF SYSTEMS: The patient reported only the pain in the hip/leg and the weakness. Communication was some what difficult as the patient is very hard of hearing. PHYSICAL EXAMINATION: Blood pressure 127/77, pulse 72, height 1.473 m (4' 10"), weight 64 kg (141 lb). Body mass index is 29.47 kg/m. GENERAL: The patient is well developed and well nourished. She does not appear uncomfortab le when seated. HEENT: HEAD/FACE: EYES: Normocephalic and atraumatic. There are no areas of recent trauma. Normal sclerae without icterus. SKIN Limited skin exam shows no significant rashes or lesions. The surgical scar on the le ft lateral hip region still looks quite fresh and is covered with steri strips. There is sl ight serosanguinous drainage. CHEST: The patient is in no acute respiratory distress with unlabored respirations. HEART: There is not lower extremity edema. ABDOMEN: The patient is only mildly overweight. NEUROLOGIC: The patient is awake, alert, and oriented to time, place, person. She follows simple and complex commands. Her speech is fluent. She comprehends speech well. She has no apparent deficits with short or salvage determiner memory. She has appropriate fund of knowledge Cranial nerves 2-12 appear grossly intact. Sensory exam does show diminished sensation to light touch in the left lower extremity, fol lowing an L5 or peroneal nerve distribution. REFLEX: RIGHT LEFT PATELLAR 1+ 1+ ACHILLES 1+ 1+ PLANTAR Downgoing Downgoing MUSCULOSKELETAL There is no major palpable deformity of the spine. Straight leg raise and slump-sit are negative. Artur's maneuver and impingement testing were negative for any groin pain. There was no tenderness to palpation over the greater tr ochanters or sacral sulci. The patient localized the majority of the pain to the left hip r egion. The left ankle is also swollen and painful. Lumbar facet loading was negative. Str ength testing showed 5/5 strength throughout the lower extremities with the exception of a d rop foot on the left. She had virtually no volitional movement when attempting to dorsiflex the ankle or toes. The patient was not able to heel and toe walk. There was no redness, eff usion, warmth or joint line tenderness in the knees. There was significant swelling and ten derness in the left ankle. RADIOGRAPHIC REVIEW: The patient's imaging was reviewed in detail with the patient today during the visit. The images show no obvious or likely source of the footdrop. ASSESSMENT: Encounter Diagnoses Name Primary? Foot drop, left foot Peroneal neuropathy at knee, left PLAN: 1. EMG and nerve conduction studies were performed today. Please see the details of the s caiody below. In summary, there was evidence of a peroneal neuropathy at the knee on the left which was quite severe. There were no recruitable units seen in the peroneal innervated mu scles. The denervation did not follow an L5 pattern or a sciatic nerve pattern. 2. The nerve conduction studies were somewhat difficult due to her ankle swelling but overa ll the findings also support the peroneal neuropathy diagnosis. I cannot rule out a periphe ral neuropathy but edema can cause similar findings. 3. We did discuss the use of an AFO such as a posterior leaf spring AFO which could accomm odate the swelling. 4. The patient will continue to follow-up with Dr. Steward and may follow-up with me as need ed. ELECTRONICALLY SIGNED BY: Nick Rangel MD EMG AND NERVE CONDUCTION STUDY DATA Nerve Conduction Studies Anti Sensory Summary Table Site NR Peak (ms) Norm Peak (ms) P-T Amp (V) Norm P-T Amp Site1 Site2 Delta-P (ms) Dist (cm) Juan (m/s) Norm Juan (m/s) Left Sup Peron Anti Sensory (Ant Lat Mall) 14 cm *NR <4.4 >5.0 14 cm Ant Lat Mall 14.0 >32 Left Sural Anti Sensory (Lat Mall) Calf *NR <4.0 >5.0 Calf Lat Mall 14.0 >35 Motor Summary Table Site NR Onset (ms) Norm Onset (ms) O-P Amp (mV) Norm O-P Amp Site1 Site2 Delta-0 (ms) Dist (cm) Juan (m/s) Norm Juan (m/s) Left Peroneal Motor (Ext Dig Brev) Ankle *NR <6.1 >2.5 Left Peroneal TA Motor (Tib Ant) Fib Head *NR <4.2 Left Tibial Motor (Abd Gonzales Brev) Ankle 4.8 <6.1 *1.4 >3.0 Knee Ankle 7.8 0.0 >35 Knee 12.6 0.8 EMG Side Muscle Nerve Root Ins Act Fibs Psw Amp Dur Poly Recrt Int Pat Comment Left VastusMed Femoral L2-4 Nml Nml Nml Nml Nml 0 Nml Nml Left AntTibialis Dp Br Peron L4-5 Nml *3+ *3+ Nml Nml 0 *Reduced *25% Acute Left ExtHallLong Dp Br Peron L5, S1 Nml *3+ *3+ Nml Nml 0 *Reduced *25% Acute Left Gastroc Tibial S1-2 Nml Nml Nml Nml Nml 0 Nml Nml Left Flex Dig Long Tibial L5-S2 Nml Nml Nml Nml Nml 0 Nml Nml Left BicepsFemS Sciatic L5-S1 Nml Nml Nml Nml Nml 0 Nml Nml Nerve Conduction Studies Motor Left/Right Comparison Site L Lat (ms) R Lat (ms) L-R Lat (ms) L Amp (mV) R Amp (mV) L-R Amp (%) Site1 Site2 L Ve l (m/s) R Juan (m/s) L-R Juan (m/s) Peroneal Motor (Ext Dig Brev) Ankle Peroneal TA Motor (Tib Ant) Fib Head Tibial Motor (Abd Gonzales Brev) Ankle 4.8 *1.4 Knee Ankle Knee 12.6 0.8 Anti Sensory Left/Right Comparison Site L Lat (ms) R Lat (ms) L-R Lat (ms) L Amp (V) R Amp (V) L-R Amp (%) Site1 Site2 L Juan (m/s) R Juan (m/s) L-R Juan (m/s) Sup Peron Anti Sensory (Ant Lat Mall) 14 cm 14 cm Ant Lat Mall Sural Anti Sensory (Lat Mall) Calf Calf Lat Mall NCV FINDINGS: Evaluation of the Left peroneal motor nerve showed no response (Ankle). The Left peroneal (TA) motor nerve showed no response (Fib Head). The Left tibial motor nerve showed reduced amplitude. The Left superficial peroneal sensory nerve showed no response (14 cm). The Lef t sural sensory nerve showed no response (Calf). EMG FINDINGS: Needle evaluation of the Left anterior tibialis and the Left extensor hallucis longus muscl es showed increased spontaneous activity, diminished recruitment, and very decreased interfe rence pattern. All remaining muscles (as indicated in the following table) showed no eviden ce of electrical instability. in this encounter Plan of Treatment Not on fileas of this encounter Visit Diagnoses + + | Diagnosis | + + | Foot drop, left foot | + + | Peroneal neuropathy at knee, left | + +
--- OUTSIDE RECORDS SUMMARY | ~2018-03-19 | XMS | Clinical Summary ---
Demographics + + + | Address | [address] [facility], [place]) [address] | | | [place] [address] | + + + | Home Phone | | + + + | Preferred Language | Unknown | + + + | Marital Status | Single | + + + | Congregational Affiliation | CAT | + + + [...] + | Lauri Gallagher | [place] | [address] | | | | | #[place] | | | | | [address] | | + + + + + | Buddy Wilson ECON | Unknown | | + + + + + Care Team Providers + +------+ + | Care Master Rigger Name | Role | Phone | + +------+ + | Amilcar Jean MD | PP | | + +------+ + Source Comments TRIDA is fully live on both EpicCare Ambulatory and EpicCare InPatient.[facility] Allergies + + + + + + [...] | +--------+ + + + + | 03/14/ | Documentati | | Edna Moore | DME Note (Shipping | | 2017 | on | | | CI items to pt home | | | | | | - left in clinic at | | | | | | last appt.) | +--------+ + + + + | 03/13/ | Diagnostic | | Nidia Lee | Hearing loss | | 2017 | Visit | | Latanya Miguel | [...] + + | 06/06/ | Diagnostic | | Nidia Lee | | | 2018 | Visit | | Latanya Miguel [address] | | | | | | [address] | | | | | | [place], [place] | | | | | | [address] | | +--------+ + + + + [...] | | 04/11/ | [id number] | | [id number]: Qty: 1 on | | Ear | RONA | | 2016 | / | | 06/11/2015 by Sachin Ng | | | | | | [id number] | | MD Kim | | | | | | 6 / | + +------+--------+ +--------+--------+--------+ Procedures + +--------+ + + + | Procedure Name | Priori | Date/Time | Associated Diagnosis | Comments | | | ty | | | | + +--------+ + + + | DC EVL AUD RHB STTS | Routin | 03/13/2018 | Sensorineural | | | | e | 6:50 PM | hearing loss, | | | | | PDT | bilateral | | + +--------+ + + + from Last 3 Months Results Not on filefrom Last 3 Months Insurance + +--------+ +--------+ + + | Payer | Benefi | Subscriber | Type | Phone | Address | | | t Plan | ID | | | | | | / | | | | | | | Group | | | | | + +--------+ +--------+ + + | MEDICARE | MEDICA | xxxxxxxxxxx | Medica | [phone] | [address] | | | RE A & | | re | [phone] | [place] [address] | | | B | | | | | + +--------+ +--------+ + + | [place]ID [place] | OHP | xxxxxxxx | Medica | [phone] [address] [address] | | | PLUS | | id | [phone] | [place] [address] | | | OPEN | | | | | | | CARD | | | | | + +--------+ +--------+ + + + +--------+ +--------+ + + | Guarantor Name | Accoun | Relation to | Date | Phone | Billing Address | | | t Type | Patient | of | | | | | | | | | | + +--------+ +--------+ + + | DOMENICA GALLAGHER | Person | Self | [birth year] | Home: | [facility] | | | al/Fam | | 1931 | [phone] | [address] [place], | | | [place] | | | [address] | [place] [address] | + +--------+ +--------+ + +
--- OUTSIDE RECORDS SUMMARY | ~2018-03-19 | XMS | Encounter Summary ---
Demographics + + + | Address | [address] | | | [place] [address] | + + + | Home Phone | | + + + | Preferred Language | Unknown | + + + | Marital Status | Single | + + + | Alevism Affiliation | Unknown | + + + | Race | Unknown | + + + | Ethnic Group | Unknown | + + + Author + + + | Author | [facility] | | | and [place] | + + + | Organization | [facility] | | | and [...] Team Providers + +------+ + | Care Skin Tanner Name | Role | Phone | + [...] | (Primary Dx) | | | | [place], | [address] [place] | | | | | [place] [address] | [place] [address] | | | | | [phone] | [phone] | | | | | | | [...]
--- OUTSIDE RECORDS SUMMARY | ~2018-03-19 | XMS | Encounter Summary ---
Demographics + + + | Address | [address] | | | [place] [address] | + + + | Home Phone | | + + + | Preferred Language | Unknown | + + + | Marital Status | Single | + + + | Baptist Affiliation | Unknown | + + + | Race | Unknown | + + + | Ethnic Group | Unknown | + + + Author + + + | Author | [facility] | | | and [place] | + + + | Organization | [facility] | | | [...] Team Providers + +------+ + | Care Finishing Pan Operator Name | Role | Phone | + +------+ + | Amilcar Jean MD | PCP | | + +------+ + Encounter Details +--------+ + + + + | Date | Type | Department | Care Team | Description | +--------+ + + + + | 01/08/ | Abstract | [facility] | Nick Rangel | | | 2017 | | PHYSIATRY [address] | [address] | | | | | [place], | [place] | | | | | [place] [address] | [id number] | | | | | [phone] | | | +--------+ + + + [...] on fileas of this encounter Visit Diagnoses Not on filein this encounter"
--- OUTSIDE RECORDS SUMMARY | ~2018-03-19 | XMS | Encounter Summary ---
Demographics + + + | Address | [address] | | | [place] [address] | + + + | Home Phone | | + + + | Preferred Language | Unknown | + + + | Marital Status | Single | + + + | Yarsani Affiliation | CAT | + + + | Race | White | + + + | Ethnic Group | Not or | + + + Author + + + | Author | [facility] | + + + | Organization | [facility] | + + + | Address | Unknown | + + + | Phone | Unavailable | + + + Support + + + + + | Name | Relationship | Address | Phone | + + + + + | Lauri Godinez | ECON | [address] | | | | | #[place] | | | | | [address] | | + + + + + | Buddy Wilson ECON | Unknown | | + + + + + Care Team Providers + +------+ + | Care Tank Pumper Panelboard Name | Role | Phone | + +------+ + | Amilcar Jean MD | PCP | | + +------+ + Reason for Visit + + + | Reason | Comments | + + + | DME Note | Shipping CI items to pt home - left in clinic at last appt. | + + + Encounter Details +--------+ + + + + | Date | Type | Department | Care Team | Description | +--------+ + + + + | 03/14/ | Documentati | Otolaryngology | Edna Moore [address] | DME Note (Shipping | | 2018 | on | Audiology Services | [address] [facility] | CI items to pt home | | | | at [facility] [address] | [address] [facility] [place] | - left in clinic at | | | | [facility] | [address] | last appt.) | | | | Mailcode: PV01 | | | | | | [facility] | | | | | | [place], [place] | | | | | | [address] | | | | | | [phone] | | | +--------+ + + + [...] as of this encounter Plan of Treatment +--------+ + + + + | Date | Type | Specialty | Care Team | Description | +--------+ + + + + | 06/06/ | Diagnostic | Dater Assembler | Nidia Lee | | | 2017 | Visit | | Latanya Miguel [address] | | | | | | [address] | | | | | | [place], [place] | | | | | | [address] | | +--------+ + + + + as of this encounter Visit Diagnoses Not on filein this encounter"
--- OUTSIDE RECORDS SUMMARY | ~2018-03-19 | XMS | Encounter Summary ---
Demographics + + + | Address | [address] | | | [place] [address] | + + + | Home Phone | | + + + | Preferred Language | Unknown | + + + | Marital Status | Single | + + + | Yazidism Affiliation | Unknown | + + + | Race | Unknown | + + + | Ethnic Group | Unknown | + + + Author + + + | Author | [facility] | | | and [place] | + + + | Organization | [facility] | | | [...] Team Providers + +------+ + | Care Management Instructor Name | Role | Phone | + [...] [address] | | | | | [place], | [place] | | | | | [place] [address] | [id number] | | | | | [phone] | | | +--------+ + + + [...]
--- OUTSIDE RECORDS SUMMARY | ~2018-03-19 | XMS | Encounter Summary ---
Demographics + + + | Address | [address] [facility] | | | [place] [address] | + + + | Home Phone | | + + + | Preferred Language | Unknown | + + + | Marital Status | Single | + + + | Uatsdin Affiliation | CAT | + + + | Race | White | + + + | Ethnic Group | Not or | + + + Author + + + | Author | [facility] | + + + | Organization | [facility] | + + + | Address | Unknown | + + + | Phone | Unavailable | + + + Support + + + + + | Name | Relationship | Address | Phone | + + + + + | Lauri Godinez | ECON | [address] | | | | | #[place] | | | | | [address] | | + + + + + | Buddy Wilson ECON | Unknown | | + + + + + Care Team Providers + +------+ + | Care Director Of Event Management Name | Role | Phone | + [...] on | Audiology Services | [address] [facility] | CI items to pt home | | | | at [facility] [address] | [address] [facility] [place] | - left in clinic at | | | | [facility] | [address] | last appt.) | | | | Mailcode: PV01 | | | | | | [facility] | | | | | | [place], [place] | | | | | | [address] | | | | | | [phone] | | | +--------+ + + + [...] + + | 06/06/ | Diagnostic | Multifocal Lens Assembler | Nidia Lee | | | 2017 | Visit | | Latanya Miguel [address] | | | | | | [address] | | | | | | [place], [place] | | | | | | [address] | | +--------+ + + + + as of this encounter Visit Diagnoses Not on filein this encounter"
--- OUTSIDE RECORDS SUMMARY | ~2018-03-19 | XMS | Encounter Summary ---
Demographics + + + | Address | [address] | | | [place] [address] | + + + | Home Phone | | + + + | Preferred Language | Unknown | + + + | Marital Status | Single | + + + | Shinto Affiliation | Unknown | + + + | Race | Unknown | + + + | Ethnic Group | Unknown | + + + Author + + + | Author | [facility] | | | and [place] | + + + | Organization | 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 [facility] Der[facility] Steward for complaints of left foot drop that began approximately a month ag o. The exact onset of weakness is not clear as the patient is not the best historian. Per the caregiver the weakness started within a few days after a left ALANA. The caregiver also r eports that Ms. Godniez was asleep or basically unarousable for 24 [...] 02/26/2016 twisted bowel STOMACH SURGERY [address] [place] STOMACH SURGERY [address] [place] TOTAL HIP ARTHROPLASTY Right 12/2009 Dr. Bin Morris TOTAL HIP ARTHROPLASTY Left 11/27/2017 Dr. Derrick Steward [facility] [place] UPPER GASTROINTESTINAL ENDOSCOPY 07/22/2014 EGD W/ JULIO CAPSULE; Laterality: N/A; Surgeon: Lawrence José MD; Location: [facility] PROCEDURE UNIT CURRENT MEDICATIONS: Current Outpatient Prescriptions [...] has no apparent deficits with short or termite treater helper memory. She has appropriate fund of knowledge [...]
--- OUTSIDE RECORDS SUMMARY | ~2018-03-19 | XMS | Clinical Summary ---
Demographics + + + | Address | [address] | | | [place] [address] | + + + | Home Phone | | + + + | Preferred Language | Unknown | + + + | Marital Status | Single | + + + | Zoroastrian Affiliation | Unknown | + + + | Race | Unknown | + + + | Ethnic Group | Unknown | + + + Author + + + | Author | [facility] | | | and [place] | + + + | Organization | [facility] | | | [...] Team Providers + +------+ + | Care Retail Buyer Name | Role | Phone | + [...] +--------+ +---------+ | MEDICARE | MEDICA | [id number] | Medica | [phone] | | | | RE | | re | [phone] | | | | PART A | | | | | | | AND B | | | | | + +--------+ +--------+ +---------+ | MED[place]ID [place] | MEDICA | [id number] | [place] | [phone] | | | [...] | | al/Fam | | 1931 | [phone] | [address] [place], | | | [place] | | | [address] | [place] [address] | + +--------+ +--------+ + +
--- OUTSIDE RECORDS SUMMARY | ~2018-03-19 | XMS | Clinical Summary ---
Demographics + + + | Address | [address] | | | [place] [address] | + + + | Home Phone [...] + | Lauri Gallagher | [place] | [address] | | | | | #[place] | | | | | [address] | | + + + + + | Buddy Wilson ECON | Unknown | | + + + + + Care Team Providers + +------+ + | Care Advertising Analyst Name | Role | Phone | + +------+ + | Amilcar Jean MD | PP | | + +------+ + Source Comments TRIDA is fully live on both EpicCare Ambulatory and EpicCare InPatient.[facility] Allergies + + + + + [...] 2018 | Visit | | Latanya Miguel [address] | | | | | | [address] | | | | | | [place], [place] | | | | | | [address] | | +--------+ + + + + [...] | | 04/11/ | [id number] | | [id number]: Qty: 1 on | | Ear | RONA | | 2016 | / | | 06/11/2015 by Sachin Ng | | | | | | [id number] | | MD Kim | | | [...] | re | [address] | [place] [address] | | | B | | | | | + +--------+ +--------+ + + | MEDICAID [place] | OHP | xxxxxxxx | Medica | [phone] | [address] [address] | | | PLUS | | id | [phone] | [place] [address] | | | OPEN | | | [...] | Self | [birth year] | Home: | [facility] | | | al/Fam | | 1931 | [phone] | [address] [place], | | | [place] | | | [address] | [place] [address] | + +--------+ +--------+ + +
--- OUTSIDE RECORDS SUMMARY | ~2018-03-19 | XMS | Encounter Summary ---
Demographics + + + | Address | [address] [facility] | | | [place] [address] | + + + | Home Phone | | + + + | Preferred Language | Unknown | + + + | Marital Status | Single | + + + | Samaritan Affiliation | CAT | + + + | Race | White | + + + | Ethnic Group | Not or | + + + Author + + + | Author | [facility] | + + + | Organization | [facility] | + + + | Address | Unknown | + + + | Phone | Unavailable | + + + Support + + + + + | Name | Relationship | Address | Phone | + + + + + | Lauri Godinez | ECON | [address] | | | | | #[place] | | | | | [address] | | + + + + + | Buddy Wilson | ECON | Unknown | | + + + + + Care Team Providers + +------+ + | Care On Line Csr Name | Role | Phone | + [...] + + + | Closed | | Assembly Machine Offbearer | | Non-[facility] | Ent | | | | | | Epic Dept | Audiology [facility] | | | | | | | [address] | | | | | | | [address] | | | | | | | [facility] | | | | | | | Mailcode: | | | | | | | PV01 | | | | | | | Physician's | | | | | | | [place] | | | | | | | [place], [place] | | | | | | | [address] | | | | | | | Phone: | | | | | | | [phone] | | | | | | | Fax: | | | | | | | [phone] | +--------+--------+ + + + + Encounter [...] at [facility] [address] | [facility] | | | | | [facility] | [place], [place] | | | | | Mailcode: PV01 | [address] | | | | | Physician's Tee | | | | | | [place], [place] | | | | | | [address] | | | | | | [phone] | | | +--------+ + + + [...] may be different f rom the original. [facility] Cochlear Implant Program Name: Domenica Godinez : 1930 Date of Visit: 03/14/2017 Interval: Routine 9 month Participants: Ms. Go (Caregiver) CI: Left PERALTA: None Wooden Box Maker: [employer] Internal: CI522 Magnet Strength: 1X Adult Cochlear Implant Programming Summary Background/Medical History: Domenica Godinez, 87 y.o., was seen by [facility] Audiology for follow up of her LEFT [...] L across the electrode array. 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 She is us [...] The following responses were obtained: Aided Thresholds: [phone] 2000 3000 4000 6000 SRT CI - [...] arise. She will be conta cted by [facility] to schedule. It was a pleasure working with Domenica and Buddy again today. If there are any questions or comments regarding the results and recommendations of this evaluation, please do not hesitat e to contact me at . Roxanne Wynne, FAAA Clinical Assembly Machine Offbearer Board Certified in Audiology [facility] Department of Otolaryngology Audiology Services [address] [place] [address] in this encounter Plan of Treatment +--------+ + + + + | Date | Type | Specialty | Care Team | Description | +--------+ + + + + | 06/06/ | Diagnostic | Assembly Machine Offbearer | Nidia Lee | | | 2017 | Visit | | Latanya Miguel [address] | | | | | | [address] | | | | | | [place], [place] | | | | | | [address] | | +--------+ + + + + as of this encounter Procedures + +--------+ + + + | Procedure Name | Priori | Date/Time | Associated Diagnosis | Comments | | | ty | | | | + +--------+ + + + | PA EVL AUD RHB STTS | Routin | [...]
[~2018-03-19 08:44] MED LIST changes: +HYDROCODON-ACE1 EA10 PO; +MILK OF MA400 MG/5 M PO; +MIRALAX17 GM PO; +NEURONTIN300 MG PO
[2018-03-19] MEDS ORDERED: KETOROLAC TROME10 MG PO (09:14)
== END 2018-03-19 10:05 | disposition home or self-care (01) ==
LOC: ED 08:44
PROC: 2W3CX1Z Immobilization of Right Lower Arm using Splint (ICD-10-PCS; principal; 2018-03-19)
DX: S52.501A Unspecified fracture of the lower end of right radius, initial encounter for closed fracture (principal); S52.614A Nondisplaced fracture of right ulna styloid process, initial encounter for closed fracture; W01.198A Fall on same level from slipping, tripping and stumbling with subsequent striking against other object, initial encounter; I10 Essential (primary) hypertension; E03.9 Hypothyroidism, unspecified; Z87.891 Personal history of nicotine dependence; Z88.2 Allergy status to sulfonamides; Z88.1 Allergy status to other antibiotic agents; Z88.5 Allergy status to narcotic agent; Z79.899 Other long term (current) drug therapy; Z79.82 Long term (current) use of aspirin
CPT/HCPCS: 29125; 73110; 99283

== ENCOUNTER 2021-06-28 16:02 | Emergency (ER) | payer MEDICARE, OTHER ==
[~2021-06-28] VITALS: Ht 149.9 cm; Wt 54.4 kg
[~2021-06-28 16:02] MED LIST changes: +KETOROLAC TROME10 MG PO
== END 2021-06-28 18:53 | disposition left against medical advice (07) ==
LOC: ED 16:02
DX: S22.41XA Multiple fractures of ribs, right side, initial encounter for closed fracture (principal); W18.30XA Fall on same level, unspecified, initial encounter; I10 Essential (primary) hypertension; E03.9 Hypothyroidism, unspecified; Z87.891 Personal history of nicotine dependence; Z88.2 Allergy status to sulfonamides; Z88.8 Allergy status to other drugs, medicaments and biological substances; Z88.5 Allergy status to narcotic agent; Z88.1 Allergy status to other antibiotic agents; Z79.899 Other long term (current) drug therapy
CPT/HCPCS: 72170; 80048; 85025; 96374; 96375; 99284-25; J1170; J2405; U0003